=== PATIENT | male | born 1955 | race Caucasian/White ===

== ENCOUNTER 2020-09-09 07:34 | Observation (INO) | payer BC, SELFPAY ==
[2020-09-09] VITALS (12 sets, daily range): BP systolic 100–144; BP diastolic 59–70; PULSE 51–96; RESP 12–18; TEMP 36.2–37.2; O2SAT 95–99; BMI 25.7
--- NOTE | ~2020-09-09 | CT_ITS ---
EXAMINATION: CT HEAD WITHOUT CONTRAST CLINICAL INFORMATION: Fall, trauma, syncope COMPARISON: None TECHNIQUE: Contiguous axial imaging was performed from the skull base to vertex without intravenous administration of contrast. Additional 2-D coronal and sagittal reformatted images are generated on the CT workstation and uploaded to PACS. This CT examination was performed using dose optimization techniques as appropriate, variously including the following: *Automated exposure control *Adjustment of mA and/or kV according to patient size (this includes techniques or standardized protocols for targeted exams where dose is matched to indication/reason for exam; i.e. extremities or head) *Use of iterative reconstruction technique DLP: 135 mGy-cm FINDINGS: There is no intracranial hemorrhage, hematoma, or extra-axial fluid collection. The ventricles are normal in size. There is no hydrocephalus, edema, or mass effect. The freeman-white matter differentiation appears symmetric. There is no visible acute territorial infarct or mass lesion. The calvarium appears intact. There is no pneumocephalus or orbital emphysema. The visualized sinuses and middle ears and mastoid air cells show no significant mucosal thickening. There are no air-fluid levels. CT/CT head/brain wo con IMPRESSION: No acute intracranial abnormality.
--- NOTE | ~2020-09-09 | XR_ITS ---
EXAMINATION: XR CHEST CLINICAL INFORMATION: Syncope, fall COMPARISON: None TECHNIQUE: Portable upright AP view of the chest was obtained. FINDINGS: There is no pneumothorax, airspace consolidation, pleural reaction, or effusion. The heart is within normal size and the hilar and mediastinal contours are normal. There is small round density overlying right anterior sixth intercostal space, possibly nipple shadow or overlapping vascular markings. There are degenerative changes thoracic spine. No visible acute bony abnormality. No free air beneath the diaphragms. XR/XR chest 1V IMPRESSION: 1. No acute intrathoracic disease. 2. Small density right lateral base, possibly nipple shadow or overlapping vascular markings. Suggest repeat view with nipple markers when clinically able.
--- NOTE | ~2020-09-09 | CT_ITS ---
EXAMINATION: CT CERVICAL SPINE WITHOUT CONTRAST CLINICAL INFORMATION: Fall, trauma, syncope COMPARISON: Radiographs cervical spine 04/25/2013 TECHNIQUE: Multidetector volumetric CT imaging of the cervical spine is performed without contrast in the axial plane. Additional 2D reformatted coronal and sagittal images are generated on the CT workstation and uploaded to PACS. This CT examination was performed using dose optimization techniques as appropriate, variously including the following: *Automated exposure control *Adjustment of mA and/or kV according to patient size (this includes techniques or standardized protocols for targeted exams where dose is matched to indication/reason for exam; i.e. extremities or head) *Use of iterative reconstruction technique DLP: 435 mGy-cm FINDINGS: There is no vertebral compression fracture, fracture line, spondylolisthesis, or prevertebral soft tissue swelling. The craniocervical junction appears normal. The odontoid appears intact. There is normal cervical lordosis. There are mild degenerative disc changes again noted C5-C6 similar to prior radiographs 2012. There is no apical pneumothorax. CT/CT cervical spine wo con IMPRESSION: 1. No acute bony abnormality or prevertebral soft tissue swelling. 2. Chronic degenerative disc changes C5-C6.
--- NOTE | 2020-09-09 07:45 | ED_ITS ---
HPI - Syncope General Chief Complaint: Syncope Stated Complaint: PASSED OUT NOSE INJ Time Seen by Provider: 09/09/20 07:45 Source: patient Mode of arrival: ambulatory Limitations: no limitations History of Present Illness HPI narrative: Patient history of coronary artery disease status post stent placement in 2010 high cholesterol hypertension was at baseline normal active woke up around 06:00 o'clock felt lightheaded sat on the side of the bed stood up and tried to go to bathroom syncopized fell and hit the nose and head to the ground. Patient denied any chest pain no palpitation no history of seizures patient never had similar episode in the past patient does have slow heart rate in the past but it was told secondary to beta-jim he was taking seen eeo officer telemetry 1 month ago and cardiac rhythm was sinus. On arrival patient cardiogram showed atrial fibrillation with heart rate in 73 also patient took Flomax last night after a month could be causing orthostatic hypertension MD complaint: loss of consciousness Related Data Home Medications Medication Instructions Recorded Confirmed aspirin 81 mg PO BEDTIME 09/09/20 09/09/20 atorvastatin 1 tab PO BEDTIME 09/09/20 09/09/20 cyanocobalamin (vitamin B-12) 1,000 mcg PO BEDTIME 09/09/20 09/09/20 lisinopril 1 tab PO BEDTIME 09/09/20 09/09/20 Allergies Allergy/AdvReac Type Severity Reaction Status Date / Time No Known Allergies Allergy Verified 09/09/20 07:54 Review of Systems Review of Systems: Constitutional : No Weight loss, No Fever, No Chills ENT/Mouth : No sore throat, No Rhinorrhea Eyes: No Eye Pain, No Swelling Cardiovascular : No Chest Pain, no palpitations Respiratory : No Cough, No Sputum, no shortness of breath Gastrointestinal : no Nausea, No Vomiting, No Diarrhea, No abdominal Pain, no black stools Genitourinary : No Dysuria, No Urinary Frequency Musculoskeletal : No joint pain, No Myalgias, No Joint Swelling Skin : No Skin Lesions, No rash Neuro : No Weakness, No Numbness, + Dizziness, No Headache Psych : No Anxiety/Panic, No Depression Heme/Lymph: No Bruising, No Lymphadenopathy Endocrine : No Polyuria, No Polydipsia All other systems reviewed and are negative [facility] Past Medical History Medical History Coronary artery disease High cholesterol Hypertension Surgical History (Updated 09/09/20 @ 10:52 by SAMANTHA Barney) Hx of cholecystectomy Status post insertion of drug-eluting stent into left anterior descending (LAD) artery for coronary artery disease Family History Family History Mother Afib Social History Social History Alcohol intake: current Alcohol intake frequency: a few times a month Alcohol type: beer Smoking Status: Former smoker Smoked in Last 30 Days: No Use of substances other than those prescribed or required for medical reasons: No Advance Directives: No Advance Directives Information Provided: No Physical Exam Vital Signs: Vital Signs: Last Vital Signs Temp 98.9 F 09/09/20 09:14 Pulse 94 09/09/20 10:11 Resp 14 09/09/20 09:14 BP 100/61 09/09/20 10:11 Pulse Ox 97 09/09/20 09:14 Body Mass Index 25.7 Const: General: comfortable and no acute distress Orientation/consciousness: patient oriented x3 HENMT: Head: Yes normocephalic and Yes abrasion Head images: 1. Official abrasion on the nose 2. Abrasion left forehead Ears: external ears normal and TM's normal bilaterally Face images: 1. abrasion Mouth: Normal oral and palatal mucosa present Eyes: General: appearance normal, both eyes and all related structures Neck: Neck: Yes full ROM, No midline deformity and Yes tender (Right-side of the neck) Chest: Chest palpation & inspection: normal inspection of the chest and normal palpation of entire chest wall Resp: Effort & Inspection: normal respiratory effort Auscultation: clear to auscultation bilaterally Cardio: Rate: regular rate Rhythm: abnormal rhythm irregularly irregular Heart sounds: S1 normal heart sound present, S2 normal heart sound present and n o murmurs Peripheral pulses: Peripheral pulses 2+ throughout GI: Inspection: Yes normal to inspection Palpation (GI): Soft to palpation Auscultation: normal bowel sounds : General: Yes no CVA tenderness Back/Spine/Pelvis: Back: no CVA tenderness Cervical Spine: normal cervical lordosis Thoracic/Lumbar Spine: thoracic and lumbar spine normal to inspect ion Neuro: General: patient oriented x3, gait normal, tone normal, moves all extremities, no focal motor deficits and CN's II-XI intact bilaterally Extrem: General: Yes normal to inspection and Yes full ROM Course Course Course Narrative: Patient has slight orthostatic hypotension symptoms, with dizziness on standing. Will give him 1 L of normal saline plan to admit seen by Cardiology MDM - Syncope MDM Narrative Medical decision making narrative: Patient's syncope episode with new onset AFib took Flomax last night. Etiology could be atrioventricular block/bradycardia/orthostatic hypotension Differential Diagnosis Differential diagnosis: Likely syncope due to orthostatic hypotension and complete atrioventricular block Medical Records Attestation: I reviewed the patient's medical records. Lab Data Attestation: I reviewed the patient's lab results. Result diagrams: 09/09/20 08:39 09/09/20 08:39 Labs: Lab Results 09/09/20 09/09/20 09/09/20 Range/Units 08:39 08:39 08:39 WBC 5.6 (4.8-10.8) X10*3/uL RBC 5.15 (4.60-5.80) X10*6/uL Hgb 16.0 (14.0-18.0) g/dl Hct 47.8 (42-52) % MCV 92.8 (80-98) fL MCH 31.1 (27.0-33.0) pg MCHC 33.5 (31.0-36.0) g/dl RDW 12.0 (11.0-16.0) % Plt Count 145 L (160-400) X10*3/uL MPV 10.0 (9.4-12.4) fL Immature Gran % (Auto) 0.4 (0.0-0.4) % Neut % (Auto) 69.4 (45-73) % Lymph % (Auto) 21.4 (20-40) % [place] % (Auto) 8.0 (2-11) % Eos % (Auto) 0.4 (0-4) % Baso % (Auto) 0.4 (0-2) % Lymph # (Auto) 1.2 (1.2-4.9) X10*3/uL [place] # (Auto) 0.5 (0.1-1.2) X10*3/uL Eos # (Auto) 0.0 (0.0-0.4) X10*3/uL Baso # (Auto) 0.0 (0.0-0.2) X10*3/uL Abs Immat Gran (auto) 0.02 (0.00-0.03) X10*3/uL Absolute Neuts (auto) 3.9 (2.0-8.3) X10*3/uL Absolute Nucleated RBC 0.000 (0.0-0.012) X10*3/uL Nucleated RBC % (auto) 0.0 (0.0-0.2) /100WBC PT (10.8-13.0) SEC INR (0.9-1.1) APTT (24.1-38.0) SEC Sodium 142 (135-145) mmol/L Potassium 4.4 (3.3-5.1) mmol/L Chloride 104 (96-108) mmol/L Carbon Dioxide 29 (22-29) mmol/L Anion Gap 13 (12-20) BUN 16 (9-16) mg/dL Creatinine 0.84 (0.5-1.4) mg/dL Estim Creat Clear Calc 94.9 Estimated GFR > 60 Random Glucose 103 (60-115) mg/dL Calcium 9.0 (8.4-10.2) mg/dL Troponin I High Sens 12.7 (<3.5-35.0) ng/L TSH 0.99 (0.32-4.0) uIU/mL COVID-19 (LUÍS) (Negative) COVID-19 Clin Com 09/09/20 09/09/20 Range/Units 08:39 10:07 WBC (4.8-10.8) X10*3/uL RBC (4.60-5.80) X10*6/uL Hgb (14.0-18.0) g/dl Hct (42-52) % MCV (80-98) fL MCH (27.0-33.0) pg MCHC (31.0-36.0) g/dl RDW (11.0-16.0) % Plt Count (160-400) X10*3/uL MPV (9.4-12.4) fL Immature Gran % (Auto) (0.0-0.4) % Neut % (Auto) (45-73) % Lymph % (Auto) (20-40) % [place] % (Auto) (2-11) % Eos % (Auto) (0-4) % Baso % (Auto) (0-2) % Lymph # (Auto) (1.2-4.9) X10*3/uL [place] # (Auto) (0.1-1.2) X10*3/uL Eos # (Auto) (0.0-0.4) X10*3/uL Baso # (Auto) (0.0-0.2) X10*3/uL Abs Immat Gran (auto) (0.00-0.03) X10*3/uL Absolute Neuts (auto) (2.0-8.3) X10*3/uL Absolute Nucleated RBC (0.0-0.012) X10*3/uL Nucleated RBC % (auto) (0.0-0.2) /100WBC PT 12.2 (10.8-13.0) SEC INR 1.0 (0.9-1.1) APTT 29.4 (24.1-38.0) SEC Sodium (135-145) mmol/L Potassium (3.3-5.1) mmol/L Chloride (96-108) mmol/L Carbon Dioxide (22-29) mmol/L Anion Gap (12-20) BUN (9-16) mg/dL Creatinine (0.5-1.4) mg/dL Estim Creat Clear Calc Estimated GFR Random Glucose (60-115) mg/dL Calcium (8.4-10.2) mg/dL Troponin I High Sens (<3.5-35.0) ng/L TSH (0.32-4.0) uIU/mL COVID-19 (LUÍS) Negative (Negative) COVID-19 Clin Com See Note ECG Data Attestation: I personally reviewed and interpreted this ECG as follows: Interpretation: Atrial fibrillation heart rate [address] T wave changes left axis deviation no acute ischemia Discharge Plan Discharge Clinical Impression: New onset a-fib, Syncope Patient Disposition: Admitted As Inpatient
--- NOTE | 2020-09-09 07:54 | ECG_ITS ---
Test Reason : FALL Blood Pressure : / mmHG Vent. Rate : 073 BPM Atrial Rate : 375 BPM P-R Int : 000 ms QRS Dur : 088 ms QT Int : 394 ms P-R-T Axes : 000 -31 070 degrees QTc Int : 434 ms Atrial fibrillation Left axis deviation Inferior infarct , age undetermined Cannot rule out Anteroseptal infarct (cited on or before 14-MAY-2002) Abnormal ECG When compared with ECG of 14-MAY-2002 23:34, Atrial fibrillation has replaced Sinus rhythm Vent. rate has increased BY 24 BPM Questionable change in initial forces of Septal leads Referred By: Beni Olivier Electronically Signed By:NADINE RIVERA MD
--- NOTE | 2020-09-09 08:24 | ECG_ITS ---
Test Reason : A FIB Blood Pressure : / mmHG Vent. Rate : 057 BPM Atrial Rate : 057 BPM P-R Int : 172 ms QRS Dur : 088 ms QT Int : 414 ms P-R-T Axes : 046 -32 081 degrees QTc Int : 402 ms Sinus bradycardia Left axis deviation Inferior infarct , age undetermined Cannot rule out Anteroseptal infarct , age undetermined Abnormal ECG When compared to the previous EKG of Normal sinus rhythm has replaced Atrial fibrillation Referred By: Beni Olivier Electronically Signed By:NADINE RIVERA MD
[2020-09-09 08:51] LABS: MANUAL DIFF FLAG NO
--- NOTE | 2020-09-09 08:54 | PC.NURSE ---
pt asked if he should be wearing a cervical collar, discussed with MD. no new orders.
[2020-09-09 08:59] LABS: Basophils Percent Auto 0.4 % (0-2); Eosinophils Percent Auto 0.4 % (0-4); Hematocrit 47.8 % (42-52); Imm Gran Abs Auto 0.02 X10*3/uL (0.00-0.03); Imm Gran Pct Auto 0.4 % (0.0-0.4); Lymphocytes Absolute Auto 1.2 X10*3/uL (1.2-4.9); Lymphocytes Percent Auto 21.4 % (20-40); Mean Corpuscular HGB Conc 33.5 g/dl (31.0-36.0); Mean Corpuscular Hemoglobin 31.1 pg (27.0-33.0); Mean Corpuscular Volume 92.8 fL (80-98); Monocytes Absolute Auto 0.5 X10*3/uL (0.1-1.2); Neutrophils Absolute Auto 3.9 X10*3/uL (2.0-8.3); Neutrophils Percent Auto 69.4 % (45-73); Platelet Count 145 X10*3/uL (160-400); Red Blood Count 5.15 X10*6/uL (4.60-5.80); White Blood Count 5.6 X10*3/uL (4.8-10.8)
[2020-09-09 09:00] LABS: Prothrombin Time 12.2 SEC (10.8-13.0)
[2020-09-09 09:02] LABS: Partial Thromboplastin Time 29.4 SEC (24.1-38.0)
[2020-09-09 09:23] LABS: Anion Gap 13 (12-20); Blood Urea Nitrogen 16 mg/dL (9-16); Carbon Dioxide 29 mmol/L (22-29); Chloride 104 mmol/L (96-108); Creatinine Clr Calc Pharmacy 94.9; Estimated Glomerular Filt Rate > 60; Glucose Random 103 mg/dL (60-115); Potassium 4.4 mmol/L (3.3-5.1); Sodium 142 mmol/L (135-145)
[2020-09-09 09:28] LABS: Troponin-I High Sensitivity 12.7 ng/L (<3.5-35.0)
[2020-09-09 09:46] LABS: Thyroid Stimulating Hormone 0.99 uIU/mL (0.32-4.0)
--- NOTE | 2020-09-09 09:59 | PM.CNCAR ---
History of Present Illness History of Present Illness Date of Service: 09/09/20 Requesting physician: Beni Olivier Consult reason: other (Syncope) Chief complaint: PASSED OUT NOSE INJ Narrative: Thank you for inviting us in the consult on Romeo for a syncopal episode at home. He is a pleasant 64-year-old man who works locally, currently working from home due to the recent pandemic. Prior history of coronary artery disease with myocardial infarction in 2000 with LAD bare metal stent and in 2009 for exertional shortness of breath undergoing drug-eluting stent. Since then he has been doing well. He says he has no prior history of hypertension, but has been maintained on lisinopril therapy since his myocardial infarction. He is also on aspirin and statin therapy. In the past used to have sinus bradycardia and this was suspected to be secondary to atenolol therapy which has been withdrawn many years ago. Since then he has been doing well. He is generally very active and maintains activity of daily living without any restrictions or exertional symptoms. Recently about a month ago he was started on Flomax for BPH and he had to couple of doses and got lightheaded. He then stopped taking Flomax. He has to drink a lot of caffeine and he was advised to reduce his caffeine intake and increase his fluid intake which he was doing. He was then advised to take Flomax at nighttime, he took the 1st dose last night and said went urination about 3 or 4 times. In the morning he got up and jumped out of bed he got severely lightheaded and did not feel good. He then went back to his bed set down. He started feeling better. Then he got up again to go about his day and the next thing he remembers is that he was on the floor. When he woke up he had notice that the bureau was knocked over and he had injured his nose. His came over and then called his daughter who is a nurse and was advised after feeling his pulse to come to the emergency room. In the emergency room he was noted to be in atrial fibrillation with controlled ventricular response. He is not hypotensive. He denies any palpitations. Does not have a history of atrial fibrillation the past. 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 Courtney and at that time was noted to be in sinus rhythm. Patient denies any recent systemic symptoms. No fever, chills, nausea, vomiting, diarrhea. Review of Systems Constitutional: Constitutional: Reports no additional constitutional complaints Cardiovascular: Cardiovascular: Denies chest pain, Denies irregular heart rhythm, Reports lightheadedness, Reports Loss of Consciousness, Denies palpitations and Denies dyspnea on exertion Respiratory: Respiratory: Reports no additional respiratory complaints and Denies dyspnea on exertion Gastrointestinal: Gastrointestinal: Reports no additional gastrointestinal complaints Genitourinary: Genitourinary: Reports no additional male genitourinary complaints Musculoskeletal: Musculoskeletal: Reports no additional musculoskeletal complaints Neurologic: Reports system reviewed and no additional complaints, except as documented Psychiatric: Psychiatric: Reports no additional psychiatric complaints Endocrine: Endocrine: Reports no additional endocrine complaints and Denies palpitations Hematologic/Lymphatic: Hematologic/Lymphatic: Reports no additional hematologic/lymphatic complaints Allergic/Immunologic: Allergic/Immunologic: Reports no additional allergic/immunologic complaints [facility] Past Medical History Medical History Coronary artery disease High cholesterol Hypertension Surgical History Surgical History Status post insertion of drug-eluting stent into left anterior descending (LAD) artery for coronary artery disease Social History Social History Alcohol intake: current Alcohol intake frequency: a few times a month Alcohol type: beer Smoking Status: Former smoker Smoked in Last 30 Days: No Use of substances other than those prescribed or required for medical reasons: No Advance Directives: No Advance Directives Information Provided: No Meds Allergies Allergy/AdvReac Type Severity Reaction Status Date / Time No Known Allergies Allergy Verified 09/09/20 07:54 Physical Exam Vital Signs: Vital Signs: Last Vital Signs Temp 98.9 F 09/09/20 09:14 Pulse 77 09/09/20 09:14 Resp 14 09/09/20 09:14 BP 114/67 09/09/20 09:14 Pulse Ox 97 09/09/20 09:14 Body Mass Index 25.7 Const: General: cooperative, comfortable, no acute distress, alert and awake Nutritional Appearance: average body habitus Orientation/consciousness: patient oriented x3 Limitations: no limitations HENMT: Head: Yes normocephalic and Yes contusion (Nose) Neck: Neck: Yes trachea midline, Yes supple and Yes no JVD Chest: Chest palpation & inspection: normal inspection of the chest Resp: Effort & Inspection: normal respiratory effort Auscultation: clear to auscultation bilaterally Cardio: Jugular venous distension: no JVD Palpation: normal PMI Rhythm: abnormal rhythm irregularly irregular Heart sounds: S1 normal heart sound present and S2 normal heart sound present GI: Auscultation: normal bowel sounds Skin: General skin exam: no rashes or lesions noted Neuro: General: patient oriented x3 and no focal motor deficits Extrem: General: Yes no clubbing, cyanosis or edema Psych: Appearance: grossly normal Results Labs and Meds Result diagrams: 09/09/20 08:39 09/09/20 08:39 Lab results: Laboratory Results - last 24 hr 09/09/20 09/09/20 09/09/20 08:39 08:39 08:39 WBC 5.6 RBC 5.15 Hgb 16.0 Hct 47.8 MCV 92.8 MCH 31.1 MCHC 33.5 RDW 12.0 Plt Count 145 L MPV 10.0 Immature Gran % (Auto) 0.4 Neut % (Auto) 69.4 Lymph % (Auto) 21.4 [place] % (Auto) 8.0 Eos % (Auto) 0.4 Baso % (Auto) 0.4 Lymph # (Auto) 1.2 [place] # (Auto) 0.5 Eos # (Auto) 0.0 Baso # (Auto) 0.0 Abs Immat Gran (auto) 0.02 Absolute Neuts (auto) 3.9 Absolute Nucleated RBC 0.000 Nucleated RBC % (auto) 0.0 PT INR APTT Sodium 142 Potassium 4.4 Chloride 104 Carbon Dioxide 29 Anion Gap 13 BUN 16 Creatinine 0.84 Estim Creat Clear Calc 94.9 Estimated GFR > 60 Random Glucose 103 Calcium 9.0 Troponin I High Sens 12.7 TSH 0.99 09/09/20 08:39 WBC RBC Hgb Hct MCV MCH MCHC RDW Plt Count MPV Immature Gran % (Auto) Neut % (Auto) Lymph % (Auto) [place] % (Auto) Eos % (Auto) Baso % (Auto) Lymph # (Auto) [place] # (Auto) Eos # (Auto) Baso # (Auto) Abs Immat Gran (auto) Absolute Neuts (auto) Absolute Nucleated RBC Nucleated RBC % (auto) PT 12.2 INR 1.0 APTT 29.4 Sodium Potassium Chloride Carbon Dioxide Anion Gap BUN Creatinine Estim Creat Clear Calc Estimated GFR Random Glucose Calcium Troponin I High Sens TSH EKG shows atrial fibrillation with left axis deviation with possible inferior infarct, most likely lead placement. Imaging Radiologist's impression: Impressions Chest X-Ray 09/09/20 07:54 IMPRESSION: 1. No acute intrathoracic disease. 2. Small density right lateral base, possibly nipple shadow or overlapping vascular markings. Suggest repeat view with nipple markers when clinically able. Head CT 09/09/20 07:55 IMPRESSION: No acute intracranial abnormality. Cervical Spine CT 09/09/20 08:27 IMPRESSION: 1. No acute bony abnormality or prevertebral soft tissue swelling. 2. Chronic degenerative disc changes C5-C6. Assessment and Plan (1) Syncope: Status: Acute Syncopal episode from history appears to be orthostatic in nature, precipitated by probably low oral intake and Flomax therapy in setting of underlying lisinopril therapy without any prior history of hypertension. Will obtain orthostatic vital signs today. Will obtain an echocardiogram. Given his prior history of bradycardia and slow ventricular response to atrial fibrillation which is unusual, will monitor for 1 more day to make sure he has no significant Mac arrhythmias. If no significant abnormality is most likely discharge him tomorrow morning. Advise IV normal saline after obtaining orthostatic vital signs. Avoid Flomax therapy in the future. He is advised to increase oral fluid intake in future. Orthostatic precautions were discussed. Trend serial troponins, although acute coronary syndrome is unlikely. (2) Coronary artery disease: Problem details: Bare metal stent to LAD in 2000 for acute myocardial infarction. Followed by drug-eluting stent to LAD in 2009 for what appears to be in stent restenoses Status: Inactive (3) Unspecified atrial fibrillation: Status: Acute Atrial fibrillation with controlled ventricular response despite not being on any rate control medications. This usually denotes underlying conduction abnormalities. No need for additional rate control therapy. Will monitor overnight with cardiac telemetry. Given recent data and no prior history of atrial fibrillation most likely need to pursue rhythm control approach however this can be performed as an outpatient. Exact duration of atrial fibrillation is unclear as patient does not having a any other symptoms. CHADSVASc score of 3. Start him on oral anticoagulation with Xarelto. Hold off on aspirin therapy.
[2020-09-09 10:41] LABS: COVID-19 Test Negative (Negative); IDNOW Serial# 9DD0AD1C
--- NOTE | 2020-09-09 10:47 | PM.IMHP ---
History of Present Illness Date of Service: 09/09/20 <SAMANTHA Barney - Last Filed: 09/09/20 11:07> Chief Complaint: syncope <SAMANTHA Barney - Last Filed: 09/09/20 11:07> This is a a 65-year-old male who presents to the emergency department after syncopal event. Patient woke up this morning and began walking to the bathroom but felt ?off? and lightheaded and generally unwell therefore sat back down. He waited until the feeling passed and then began walking to the bathroom again. He woke up on the ground. He does not remember what happened but noticed that the bureau was knocked over and he had suffered trauma to his nose. He denies any chest pain, shortness of breath, palpitations. He has no previous history of syncope. He was recently started on Flomax which had caused dizziness and was therefore discontinued. However yesterday he had telemedicine appointment with his urologist who recommended that he take Flomax in the evening. He took his 1st dose yesterday prior to bedtime. On arrival to the emergency department he was noted to be in new onset atrial fibrillation with controlled ventricular response. The remainder of his workup was unremarkable. Orthostatic vital signs were negative. <SAMANTHA Barney - Last Filed: 09/09/20 11:07> Review of Systems Review of Systems: Yes all other systems are reviewed and are negative <SAMANTHA Barney - Last Filed: 09/09/20 11:07> Constitutional: Constitutional: Denies chills and Denies fever(s) <SAMANTHA Barney - Last Filed: 09/09/20 11:07> Cardiovascular: Cardiovascular: Denies chest pain <SAMANTHA Barney - Last Filed: 09/09/20 11:07> Respiratory: Respiratory: Denies cough <SAMANTHA Barney - Last Filed: 09/09/20 11:07> Gastrointestinal: Gastrointestinal: Denies abdominal pain <SAMANTHA Barney - Last Filed: 09/09/20 11:07> [facility] Medical History: Medical History Coronary artery disease High cholesterol Hypertension <SAMANTHA Barney - Last Filed: 09/09/20 11:07> Functional capacity: independent ambulation <SAMANTHA Barney - Last Filed: 09/09/20 11:07> Family History: Family History Mother Afib <SAMANTHA Barney - Last Filed: 09/09/20 11:07> Surgical History: Surgical History Hx of cholecystectomy Status post insertion of drug-eluting stent into left anterior descending (LAD) artery for coronary artery disease <SAMANTHA Barney - Last Filed: 09/09/20 11:07> Social History: Social History Alcohol intake: current Alcohol intake frequency: a few times a month Alcohol type: beer Smoking Status: Former smoker Tobacco Type: Cigarette Packs Per Day: 2 Cigarettes Per Day: 40.0 Years Smoked: 9 Smoked in Last 30 Days: No Patient Interested in Nicotine Replacement: No Patient Given Instructions on How to Stop Smoking: No Use of substances other than those prescribed or required for medical reasons: No Advance Directives: No Advance Directives Information Provided: No <SAMANTHA Barney - Last Filed: 09/09/20 11:07> Meds Allergies/Adverse reactions: Allergies Allergy/AdvReac Type Severity Reaction Status Date / Time No Known Allergies Allergy Verified 09/09/20 07:54 <SAMANTHA Barney - Last Filed: 09/09/20 11:07> Active Medications: Current Medications Generic Name Dose Route Start Last Admin Trade Name Freq PRN Reason Stop Dose Admin Sodium Chloride 1,000 mls @ 999 mls/hr 09/09/20 10:15 Ns IVCONT 09/09/20 11:15 .Q1H1M [facility] Pharm[facility] Consult 1 each 09/09/20 10:06 Consult Rx Perform Med Rec MISCELLANE ONCE PRN Consult order <SAMANTHA Barney - Last Filed: 09/09/20 11:07> Home medications: Home Medications Medication Instructions Recorded Confirmed Last Taken Type aspirin 81 mg PO BEDTIME 09/09/20 09/09/20 09/08/20 History atorvastatin 1 tab PO BEDTIME 09/09/20 09/09/20 09/08/20 History cyanocobalamin (vitamin B-12) 1,000 mcg PO BEDTIME 09/09/20 09/09/20 09/08/20 History lisinopril 1 tab PO BEDTIME 09/09/20 09/09/20 09/08/20 History <SAMANTHA Barney - Last Filed: 09/09/20 11:07> Physical Exam Vital Signs and Narrative: Vital Signs: Last Vital Signs Temp 98.9 F 09/09/20 09:14 Pulse 94 09/09/20 10:11 Resp 14 09/09/20 09:14 BP 100/61 09/09/20 10:11 Pulse Ox 97 09/09/20 09:14 Body Mass Index 25.7 <SAMANTHA Barney - Last Filed: 09/09/20 11:07> Const: Nutritional Appearance: well nourished <SAMANTHA Barney Last Filed: 09/09/20 11:07> Orientation/consciousness: patient oriented x3 <SAMANTHA Barney - Last Filed: 09/09/20 11:07> HENMT: Head: Yes normocephalic and Yes atraumatic <SAMANTHA Barney - Last Filed: 09/09/20 11:07> Eyes: Sclerae: sclerae normal <SAMANTHA Barney Last Filed: 09/09/20 11:07> Chest: Chest palpation & inspection: normal inspection of the chest <SAMANTHA Barney Last Filed: 09/09/20 11:07> Resp: Effort & Inspection: normal respiratory effort and no respiratory distress <SAMANTHA Barney Last Filed: 09/09/20 11:07> Auscultation: clear to auscultation bilaterally <SAMANTHA Barney Last Filed: 09/09/20 11:07> Cardio: Rate: regular rate <SAMANTHA Barney Last Filed: 09/09/20 11:07> Rhythm: abnormal rhythm irregularly irregular <SAMANTHA Barney Last Filed: 09/09/20 11:07> GI: Palpation (GI): Soft to palpation and nontender <SAMANTHA Barney - Last Filed: 09/09/20 11:07> Skin: General skin exam: no rashes or lesions noted <SAMANTHA Barney - Last Filed: 09/09/20 11:07> Neuro: General: patient oriented x3 <SAMANTHA Barney - Last Filed: 09/09/20 11:07> Cranial nerves: Yes CN's II-XII intact bilaterally and Yes Bilaterally intact EOM present <SAMANTHA Barney - Last Filed: 09/09/20 11:07> Extrem: General: Yes normal to inspection <SAMANTHA Barney - Last Filed: 09/09/20 11:07> Results Labs CBC and Chem 7: : 09/10/20 07:38 09/10/20 07:38 <SAMANTHA Barney - Last Filed: 09/09/20 11:07> Labs: Laboratory Results - last 24 hr 09/09/20 09/09/20 09/09/20 08:39 08:39 08:39 MCV 92.8 MCH 31.1 MCHC 33.5 RDW 12.0 Plt Count 145 L MPV 10.0 Immature Gran % (Auto) 0.4 Neut % (Auto) 69.4 Lymph % (Auto) 21.4 [place]w % (Auto) 8.0 Eos % (Auto) 0.4 Baso % (Auto) 0.4 Lymph # (Auto) 1.2 [place] # (Auto) 0.5 Eos # (Auto) 0.0 Baso # (Auto) 0.0 Abs Immat Gran (auto) 0.02 Absolute Neuts (auto) 3.9 Absolute Nucleated RBC 0.000 Nucleated RBC % (auto) 0.0 PT INR APTT Anion Gap 13 Estim Creat Clear Calc 94.9 Estimated GFR > 60 Random Glucose 103 Calcium 9.0 Troponin I High Sens 12.7 TSH 0.99 COVID-19 ([facility]) COVID-19 Clin Com 09/09/20 09/09/20 08:39 10:07 MCV MCH MCHC RDW Plt Count MPV Immature Gran % (Auto) Neut % (Auto) Lymph % (Auto) [place]w % (Auto) Eos % (Auto) Baso % (Auto) Lymph # (Auto) [place] # (Auto) Eos # (Auto) Baso # (Auto) Abs Immat Gran (auto) Absolute Neuts (auto) Absolute Nucleated RBC Nucleated RBC % (auto) PT 12.2 INR 1.0 APTT 29.4 Anion Gap Estim Creat Clear Calc Estimated GFR Random Glucose Calcium Troponin I High Sens TSH COVID-19 ([facility]) Negative COVID-19 Clin Com See Note <SAMANTHA Barney - Last Filed: 09/09/20 11:07> Imaging Radiologist's Impressions: Impressions Chest X-Ray 09/09/20 07:54 IMPRESSION: 1. No acute intrathoracic disease. 2. Small density right lateral base, possibly nipple shadow or overlapping vascular markings. Suggest repeat view with nipple markers when clinically able. Head CT 09/09/20 07:55 IMPRESSION: No acute intracranial abnormality. Cervical Spine CT 09/09/20 08:27 IMPRESSION: 1. No acute bony abnormality or prevertebral soft tissue swelling. 2. Chronic degenerative disc changes C5-C6. <SAMANTHA Barney - Last Filed: 09/09/20 11:07> Assessment and Plan (1) Syncope: Status: Acute <SAMANTHA Barney - Last Filed: 09/09/20 11:07> (2) Unspecified atrial fibrillation: Status: Acute <SAMANTHA Barney - Last Filed: 09/09/20 11:07> This is a 65-year-old male with history of coronary artery disease, hypertension who presents to the emergency department after syncopal event found to have new onset atrial fibrillation Syncope Possibly related to orthostasis given recent use of Flomax however orthostatic blood pressures negative in the ED Tele monitoring to rule out bradyarrhythmia Echocardiogram Trend cardiac enzymes Cardiology following New onset atrial fibrillation Rate controlled ChadsVasc score 3, will start AC with xarelto cardiology following CAD No chest pain Hold aspirin, starting AC with Xarelto for afib Previous intolerance to beta-jim HTN Blood pressure on the lower side Will hold lisinopril for now. Can resume if blood pressure tolerates DVT prophylaxis-Xarelto This case was discussed with Dr. Das <SAMANTHA Barney - Last Filed: 09/09/20 11:07>
[2020-09-09] MEDS: 0.9 % Sodium Chloride 1,000 ML 999 ML IVCONT (10:51)
[2020-09-09] MEDS: Rivaroxaban 20 MG TABLET PO (11:15)
[2020-09-09 13:20] LABS: Troponin-I High Sensitivity 24.6 ng/L (<3.5-35.0)
[2020-09-09] MEDS: 0.9 % Sodium Chloride Flush 3 ML SYRINGE IVFLUSH ×2 (15:13→21:02)
[2020-09-09] MEDS: Acetaminophen 325 MG TABLET 650 MG PO (16:59)
[2020-09-09] MEDS: Atorvastatin Calcium 40 MG TABLET PO (20:59)
[2020-09-09] MEDS: Cyanocobalamin (Vitamin B-12) 1,000 MCG TABLET 1000 MCG PO (20:59)
[2020-09-09] MEDS: traMADoL HCL 50 MG TABLET PO (21:08)
[2020-09-09] MEDS: Sodium Chloride 0.65 % Nasal 44 ML SPRBTL 1 SPRAY NOSTRIL-B (22:11)
--- NOTE | 2020-09-09 22:18 | PC.NURSE ---
21:50 Pt complained of 3/10 chest tightness from mid chest radiating up to neck. BP 125/67 P 53 02 99 on RA stat EKG done no change from previous EKG except now sinus mile. Pain resolved 20 minutes later. Doc Shameka notified.
[2020-09-10 03:05] VITALS: BP 119/66; PULSE 54; RESP 16; TEMP 36.3; O2SAT 97
[2020-09-10] MEDS: Rivaroxaban 20 MG TABLET PO (07:31)
[2020-09-10] MEDS: 0.9 % Sodium Chloride Flush 3 ML SYRINGE IVFLUSH (07:31)
[2020-09-10 07:33] VITALS: BP 125/70; PULSE 55; RESP 16; TEMP 36.4; O2SAT 96
[2020-09-10] MEDS: Acetaminophen 325 MG TABLET 650 MG PO (07:33)
[2020-09-10 08:07] LABS: MANUAL DIFF FLAG NO
[2020-09-10 08:10] LABS: Basophils Percent Auto 0.4 % (0-2); Eosinophils Absolute Auto 0.1 X10*3/uL (0.0-0.4); Eosinophils Percent Auto 0.9 % (0-4); Hematocrit 43.8 % (42-52); Hemoglobin 14.8 g/dl (14.0-18.0); Imm Gran Abs Auto 0.01 X10*3/uL (0.00-0.03); Imm Gran Pct Auto 0.2 % (0.0-0.4); Lymphocytes Absolute Auto 1.5 X10*3/uL (1.2-4.9); Mean Corpuscular HGB Conc 33.8 g/dl (31.0-36.0); Mean Corpuscular Hemoglobin 31.1 pg (27.0-33.0); Mean Platelet Volume 10.2 fL (9.4-12.4); Monocytes Absolute Auto 0.5 X10*3/uL (0.1-1.2); Monocytes Percent Auto 8.9 % (2-11); Neutrophils Absolute Auto 3.4 X10*3/uL (2.0-8.3); Neutrophils Percent Auto 62.6 % (45-73); Platelet Count 156 X10*3/uL (160-400); Red Blood Count 4.76 X10*6/uL (4.60-5.80); Red Cell Distribution Width 11.9 % (11.0-16.0); White Blood Count 5.4 X10*3/uL (4.8-10.8)
[2020-09-10 08:24] VITALS: BP 133/77; PULSE 58
[2020-09-10 08:34] LABS: Anion Gap 9 (12-20); Blood Urea Nitrogen 13 mg/dL (9-16); Calcium 8.4 mg/dL (8.4-10.2); Carbon Dioxide 30 mmol/L (22-29); Chloride 106 mmol/L (96-108); Creatinine Clr Calc Pharmacy 87.6; Estimated Glomerular Filt Rate > 60; Glucose Random 99 mg/dL (60-115); Potassium 4.3 mmol/L (3.3-5.1); Sodium 141 mmol/L (135-145)
[2020-09-10 09:33] VITALS: BP 125/65; PULSE 51
--- NOTE | 2020-09-10 09:39 | P.DS_ITS ---
DS: Providers Provider Date of Service: 11/27/20 Date of admission: 09/09/20 10:24 Primary care physician: SAMANTHA Nation Consults: 09/09/20 08:56 Consult to Cardiology Stat Consulting Provider: Giovanni Singleton Reason for consultation: at [facility] with syncope Has provider been notified: Yes DS: Diagnosis Discharge Diagnosis (1) Syncope: Status: Acute (2) Unspecified atrial fibrillation: Status: Acute DS: Medications Discharge Medications Home Medications: Home Medications Medication Instructions Recorded Confirmed aspirin 81 mg PO BEDTIME 09/09/20 09/09/20 atorvastatin 1 tab PO BEDTIME 09/09/20 09/09/20 cyanocobalamin (vitamin B-12) 1,000 mcg PO BEDTIME 09/09/20 09/09/20 lisinopril 1 tab PO BEDTIME 09/09/20 09/09/20 DS: Summary Hospital Course Hospital Course: HpI This is a a 65-year-old male who presents to the emergency department after syncopal event. Patient woke up this morning and began walking to the bathroom but felt ?off? and lightheaded and generally unwell therefore sat back down. He waited until the feeling passed and then began walking to the bathroom again. He woke up on the ground. He does not remember what happened but noticed that the bureau was knocked over and he had suffered trauma to his nose. He denies any chest pain, shortness of breath, palpitations. He has no previous history of syncope. He was recently started on Flomax which had caused dizziness and was therefore discontinued. However yesterday he had telemedicine appointment with his urologist who recommended that he take Flomax in the evening. He took his 1st dose yesterday prior to bedtime. On arrival to the emergency department he was noted to be in new onset atrial fibrillation with controlled ventricular response. The remainder of his workup was unremarkable. Orthostatic vital signs were negative. Hospital course: 1. Syncope likley from orthostatic hypotension--hydrated and is resolved. 2. New onset AFIB with controlled rate, started on Xaretlo 20 mg daily, echo is been performed. To followup with his wash oil pump operator Antwan Rebolledo Time Spent with Patient Time attestation: Total time spent providing and/or coordinating discharge services: Discharge coordination time: Greater than 30 minutes Physical Exam Vital Signs: Vital Signs: Last Vital Signs Temp 97.6 F 09/10/20 07:33 Pulse 55 09/10/20 07:33 Resp 16 09/10/20 07:33 BP 125/70 09/10/20 07:33 Pulse Ox 96 09/10/20 07:33 Body Mass Index 25.7 General: AO X 3, no acute distress Resp: CTA bilateral CVS: S1,S2,iRiRR GI: +BS, NT, no distention Skin: No rash Neuro: motor grossly intact Psych: appropriate affect DS: Data Data Completed and Pending Labs on day of discharge: Laboratory Results - last 24 hr 09/09/20 09/09/20 09/09/20 08:39 10:07 12:31 WBC RBC Hgb Hct MCV MCH MCHC RDW Plt Count MPV Immature Gran % (Auto) Neut % (Auto) Lymph % (Auto) [place] % (Auto) Eos % (Auto) Baso % (Auto) Lymph # (Auto) [place] # (Auto) Eos # (Auto) Baso # (Auto) Abs Immat Gran (auto) Absolute Neuts (auto) Absolute Nucleated RBC Nucleated RBC % (auto) Sodium Potassium Chloride Carbon Dioxide Anion Gap BUN Creatinine Estim Creat Clear Calc Estimated GFR Random Glucose Calcium Troponin I High Sens 24.6 D TSH 0.99 COVID-19 ([facility]) Negative COVID-19 Clin Com See Note 09/10/20 09/10/20 07:38 07:38 WBC 5.4 RBC 4.76 Hgb 14.8 Hct 43.8 MCV 92.0 MCH 31.1 MCHC 33.8 RDW 11.9 Plt Count 156 L MPV 10.2 Immature Gran % (Auto) 0.2 Neut % (Auto) 62.6 Lymph % (Auto) 27.0 [place] % (Auto) 8.9 Eos % (Auto) 0.9 Baso % (Auto) 0.4 Lymph # (Auto) 1.5 [place] # (Auto) 0.5 Eos # (Auto) 0.1 Baso # (Auto) 0.0 Abs Immat Gran (auto) 0.01 Absolute Neuts (auto) 3.4 Absolute Nucleated RBC 0.000 Nucleated RBC % (auto) 0.0 Sodium 141 Potassium 4.3 Chloride 106 Carbon Dioxide 30 H Anion Gap 9 L BUN 13 Creatinine 0.91 Estim Creat Clear Calc 87.6 Estimated GFR > 60 Random Glucose 99 Calcium 8.4 D Troponin I High Sens TSH COVID-19 ([facility]) COVID-19 Clin Com Discharge Plan Discharge Anticipated Discharge Date/Time: 09/10/20 09:35 Patient Disposition: Home, Self-Care Referrals: Dorys Romo PA [Primary Care Provider] - Discharge Medications: New Xarelto 20 mg Tablet 20 mg PO DAILY Qty: 30 RF: 1 Continued atorvastatin 40 mg tablet 1 tab PO BEDTIME RF: 0 lisinopril 5 mg tablet 1 tab PO BEDTIME RF: 0 cyanocobalamin (vitamin B-12) 1,000 mcg Tablet 1,000 mcg PO BEDTIME RF: 0 aspirin 81 mg Tablet,Delayed Release (Dr/Ec) 81 mg PO BEDTIME RF: 0 Discharge Orders: Discharge Order (Routine); Ordered 09/10/20 Ordered By: Yang Das Diet: advance to usual diet Activity on Discharge: As tolerated Stand Alone Forms: Patient Portal Discharge page Care Plan Goals: To prevent stroke from afib Health Concerns: afib, syncope Plan of Treatment: Take Xarelto as recommended and follow up with your Docotor and heart DrCatia in 1 to 2 weeks, call for appointment Assessment: afib Discharge Date/Time: 09/10/20 14:17
[2020-09-10 10:00] VITALS: BP 133/71; PULSE 56
--- NOTE | 2020-09-10 10:27 | PM.PNCARD ---
Subjective Subjective Date of Service: 09/10/20 Principal diagnosis: Syncope, paroxysmal atrial fibrillation. Interval history: Patient has no new symptoms. Converted to sinus rhythm yesterday afternoon. No orthostatic lightheadedness. Orthostatic vitals are within normal limits. Echocardiogram is pending. Review of Systems Constitutional: Reports no additional constitutional complaints Cardiovascular: Reports no additional cardiovascular complaints Respiratory: Reports no additional respiratory complaints Gastrointestinal: Reports no additional gastrointestinal complaints Musculoskeletal: Reports no additional musculoskeletal complaints Reports system reviewed and no additional complaints, except as documented Psychiatric: Reports no additional psychiatric complaints Physical Exam Vital Signs: Last Vital Signs Temp 97.6 F 09/10/20 07:33 Pulse 56 09/10/20 10:00 Resp 16 09/10/20 07:33 BP 133/71 09/10/20 10:00 Pulse Ox 96 09/10/20 07:33 Body Mass Index 25.7 Const General: cooperative, comfortable, alert and awake Orientation/consciousness: patient oriented x3 Limitations: no limitations Neck Neck: Yes trachea midline, Yes supple and Yes no JVD Resp Effort & Inspection: normal respiratory effort Cardio Jugular venous distension: no JVD Palpation: normal PMI Rate: regular rate Rhythm: regular rhythm Heart sounds: S1 normal heart sound present and S2 normal heart sound present Neuro General: patient oriented x3 and no focal motor deficits Extrem General: Yes no clubbing, cyanosis or edema Results Labs and Meds Result diagrams: 09/10/20 07:38 09/10/20 07:38 Lab results: Laboratory Results - last 24 hr 09/09/20 09/09/20 09/10/20 10:07 12:31 07:38 WBC 5.4 RBC 4.76 Hgb 14.8 Hct 43.8 MCV 92.0 MCH 31.1 MCHC 33.8 RDW 11.9 Plt Count 156 L MPV 10.2 Immature Gran % (Auto) 0.2 Neut % (Auto) 62.6 Lymph % (Auto) 27.0 [place] % (Auto) 8.9 Eos % (Auto) 0.9 Baso % (Auto) 0.4 Lymph # (Auto) 1.5 [place] # (Auto) 0.5 Eos # (Auto) 0.1 Baso # (Auto) 0.0 Abs Immat Gran (auto) 0.01 Absolute Neuts (auto) 3.4 Absolute Nucleated RBC 0.000 Nucleated RBC % (auto) 0.0 Sodium Potassium Chloride Carbon Dioxide Anion Gap BUN Creatinine Estim Creat Clear Calc Estimated GFR Random Glucose Calcium Troponin I High Sens 24.6 D COVID-19 ([facility]) Negative COVID-19 Clin Com See Note 09/10/20 07:38 WBC RBC Hgb Hct MCV MCH MCHC RDW Plt Count MPV Immature Gran % (Auto) Neut % (Auto) Lymph % (Auto) [place] % (Auto) Eos % (Auto) Baso % (Auto) Lymph # (Auto) [place] # (Auto) Eos # (Auto) Baso # (Auto) Abs Immat Gran (auto) Absolute Neuts (auto) Absolute Nucleated RBC Nucleated RBC % (auto) Sodium 141 Potassium 4.3 Chloride 106 Carbon Dioxide 30 H Anion Gap 9 L BUN 13 Creatinine 0.91 Estim Creat Clear Calc 87.6 Estimated GFR > 60 Random Glucose 99 Calcium 8.4 D Troponin I High Sens COVID-19 ([facility]) COVID-19 Clin Com Progress Note: A&P Assessment and plan (1) Paroxysmal atrial fibrillation: Status: Acute Assessment and Plan: Paroxysmal atrial fibrillation, trigger most likely being acute adrenergic surge from his syncopal event. However given that he has multiple risk factor should continue oral anticoagulation therapy with Xarelto. There is no need for aspirin therapy. Outpatient follow-up with his own respiratory care faculty and may require event monitor. Echocardiogram is pending. (2) Syncope: Status: Acute Assessment and Plan: Syncope with no recurrent events symptoms have improved. Appears to be confluence of factors including starting of Flomax therapy and possibly reduced oral intake causing orthostatic hypertension. Avoid Flomax like therapy in the future. Increase fluid intake was discussed. Orthostatic precautions were discussed in details. He understands and agrees. Echocardiogram is pending. (3) Coronary artery disease: Problem details: Bare metal stent to LAD in 2000 for acute myocardial infarction. Followed by drug-eluting stent to LAD in 2009 for what appears to be in stent restenoses Status: Acute Assessment and Plan: Coronary artery disease is stable with no recent symptoms suggestive of myocardial ischemia. Continue risk factor modification. Continue lisinopril therapy and high-intensity statin therapy. Aspirin be held as he is being started on oral anticoagulant therapy. Will sign of the case, patient can be discharged home and follow-up with Dr. Courtney as outpatient. Fall Risk Details Current Medications: Current Medications Generic Name Dose Route Start Last Admin Trade Name Nader PRN Reason Stop Dose Admin Acetaminophen 650 mg 09/09/20 18:16 09/10/20 07:33 Acetaminophen 325 Mg Tablet PO 650 mg Q6H PRN Administration Pain, Mild (Pain Scale 1-3) Atorvastatin Calcium 40 mg 09/09/20 21:00 09/09/20 20:59 Atorvastatin Calcium 40 Mg Tablet PO 40 mg BEDTIME JUICE Administration Cyanocobalamin 1,000 mcg 09/09/20 21:00 09/09/20 20:59 Cyanocobalamin (Vitamin B-12) 1,000 Mcg Tablet PO 1,000 mcg BEDTIME JUICE Administration Docusate Sodium 100 mg 09/09/20 12:42 Docusate Sodium 100 Mg Capsule PO DAILY PRN Constipation Ondansetron HCl 4 mg 09/09/20 12:42 Ondansetron Hcl 4 Mg/2 Ml Vial IVPUSH Q8H PRN Nausea and Vomiting Pharmacy Consult 1 each 09/09/20 10:06 Consult Rx Perform Med Rec MISCELLANE ONCE PRN Consult order Rivaroxaban 20 mg 09/10/20 09:00 09/10/20 07:31 Rivaroxaban 20 Mg Tablet PO 20 mg DAILY JUICE Administration Sodium Chloride 3 ml 09/09/20 16:00 09/10/20 07:31 0.9 % Sodium Chloride Flush 3 Ml Syringe IVFLUSH 3 ml QSHIFT JUICE Administration Sodium Chloride 1 spray 09/09/20 21:17 09/09/20 22:11 Sodium Chloride 0.65 % Nasal 44 Ml Sprbtl NOSTRIL-B 1 spray Q1H PRN Administration Nasal Congestion Tramadol HCl 50 mg 09/09/20 18:21 09/09/20 21:08 Tramadol Hcl 50 Mg Tablet PO 50 mg Q6H PRN Administration Pain, Severe (Pain Scale 7-10) Time Spent With Patient Time: Total time spent is greater than 50% in coordination of care (as documented) at patient's floor/unit and/or counseling patient: Time with patient: 25 - 35 minutes
--- NOTE | 2020-09-10 10:57 | MHC.CM.PN ---
pt lives c his in their home. he reports that he is independent c everything. still driving a car. active in the community. pt will have his transport at dc. pt denies the need for vna at dc. dc plan is home no svcs. cm to cont. to follow.
--- NOTE | 2020-09-10 10:59 | CA_ITS ---
Transthoracic Echocardiogram Patient (Last, First, Middle): Romeo Aranda, Gender: Male Date of : 1955 Age: 65 Procedure Date: 09/10/2020 Procedure Type: Transthoracic Echocardiogram Location: S3W Height: 182.88 cm Weight: 85.73 kg BSA: 2.08 m2 Heart Rate: bpm BP: 119 / 66 mmHg Sash Clamp Operator: DAVID Valle MD: Nancy SINGH Anode Machine Operator: Giovanni Singleton MD Symptoms: new onset afib, syncope Study Quality: Fair ECG Rhythm: Sinus Conclusions: - 1. Normal LV systolic function with grade 1 diastolic dysfunction 2. Mild aortic regurgitation 3. Normal RV systolic pressure 4. No pericardial effusion Findings Left Ventricle Normal left ventricular size, thickness, and systolic function. The visually estimated ejection fraction is between 55-60%. Spectral Doppler is indicative of an impaired relaxation filling pattern. E/E prime ratio is <8, consistent with normal filling pressures. Evidence suggests grade I (mild) diastolic dysfunction. Right Ventricle Normal right ventricular cavity size and systolic function. Atria The left atrium is likely dilated. There is no evidence of interatrial shunt. The right atrium is normal in size. Aortic Valve There is mild calcification of the aortic valve. There is no aortic valve stenosis. There is mild aortic valve regurgitation. Mitral Valve There is mild anterior and posterior mitral leaflet thickening. There is trace mitral valve regurgitation. There is no mitral valve stenosis. Pulmonic Valve The pulmonic valve was not well visualized. Tricuspid Valve Likely normal tricuspid valve structure and function. There is trace tricuspid valve regurgitation. The right ventricular systolic pressure is normal. The right ventricular systolic pressure is 16 mmHg. Normal right atrial pressure. There is no evidence of pulmonary hypertension. Great Vessels All visible segments of the aorta are normal in size. The pulmonary artery was not well visualized. Small plaque is seen in the descending thoracic aorta. Venous The inferior vena cava is normal in size and collapses greater than 50% with inspiration. Pericardium/Pleural There is no evidence of pericardial effusion. Prior Study Comparison No prior study available for comparison. Measurements 2D Linear Measurements IVSd: 1.13 0.6-0.9/0.6-1.0 cm LVIDd: 5.09 3.9-5.3/4.2-5.9 cm LVIDd Index: 2.45 2.4-3.2/2.2-3.1 cm/m2 LVIDs: 3.42 2.0-3.6 cm LVPWd: 1.08 0.7-1.1 cm Ao Root: 3.80 2.1-3.5 cm LA Diam: 4.00 2.7-3.8/3.0-4.0 cm LAIDs Index: 1.92 1.5-2.3 cm/m2 LV Mass: 267.43 67-162/88-224 g LV Mass Index: 128.57 43-95/49-115 g/m2 LVOT Diam: 2.40 3.0+(-)1.3 cm 2D Systolic Function EF 4C: 52.80 >55% EF 2C: 55.30 >55% EF BiP: 52.30 >55% Mitral Valve MV Pk E: 0.62 MV PK A: 0.55 MV Decel Time: 225.00 E/A: 1.10 E'Lateral: 5.87 E'Medial: 4.90 E/E' Med: 12.60 E/E' Lat: 10.50 PHT: 66.00 MVA PHT: 3.33 Decel [place]: 2.74 Aortic Valve AoV Pk Maximino: 1.33 AoV Mn Maximino: 0.93 AoV VTI: 0.31 AoV Pk Grad: 7.00 Aov Mn Grad: 4.00 SEBASTIAN Cont.VTI: 3.19 LVOT LVOT Pk Maximino: 0.94 LVOT Mn Maximino: 0.64 LVOT VTI: 0.22 LVOT Pk Grad: 4.00 LVOT Mn Grad: 2.00 LVOT Diam: 2.40 LVOT Area: 4.52 Diastolic Function MV Pk E: 0.62 MV Pk A: 0.55 E/A: 1.10 E'Medial: 4.90 E/E' Med: 12.60 E' Laterial: 5.87 E/E' Lat: 10.50 Tricuspid Valve TR Pk Maximino: 1.83 TR Pk Grad: 13.00 RA Press: 3.00 RVSP: 16.00 Great Vessels Aorta Ao Root-2D: 3.80 2.0-3.7 cm Ao Asc: 3.70 2.1-3.4 cm Ao Arch: 3.00 Updated in Other Vendor System with Status of Final Giovanni Singleton MD electronically signed on 09/10/2020 12:40:07 PM with status of Final
[2020-09-10 11:30] VITALS: BP 139/71; PULSE 52; RESP 18; TEMP 36.6; O2SAT 97
== END 2020-09-10 14:17 | disposition home or self-care (01) ==
LOC: HO.ED 10:05 → HO.EDOVER 10:44 → HO.S3 12:38
PROVIDERS: Physician Assistant Medical; Admitting Provider Internal Medicine; Emergency Provider Internal Medicine; PCP Physician Assistant Medical; Visit Provider Internal Medicine
DX: R55 Syncope and collapse (principal); I48.0 Paroxysmal atrial fibrillation; S00.31XA Abrasion of nose, initial encounter; S00.81XA Abrasion of other part of head, initial encounter; I25.10 Atherosclerotic heart disease of native coronary artery without angina pectoris; E78.00 Pure hypercholesterolemia, unspecified; I10 Essential (primary) hypertension; M50.322 Other cervical disc degeneration at C5-C6 level; R94.31 Abnormal electrocardiogram [ECG] [EKG]; Z20.822 Contact with and (suspected) exposure to COVID-19; Z79.82 Long term (current) use of aspirin; Z79.899 Other long term (current) drug therapy; Z95.5 Presence of coronary angioplasty implant and graft; Z87.891 Personal history of nicotine dependence; W18.30XA Fall on same level, unspecified, initial encounter; Y93.9 Activity, unspecified; Y92.9 Unspecified place or not applicable; Y99.9 Unspecified external cause status
CPT/HCPCS: 36415; 70450; 71045; 72125; 80048; 84443; 84484; 85025; 85610; 85730; 87635; 93005; 93306; 96361; 96374; 99218; 99285

== ENCOUNTER 2024-08-11 09:55 | Outpatient (AMB) | payer MEDICARE, SELFPAY ==
[2024-08-11 10:00] VITALS: BP 120/76; PULSE 58; BMI 25.7
--- NOTE | 2024-08-11 10:00 | MHC.OFFVIS ---
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/ afib/post ablation/cp/lightheaded Intake Note: [place]x cabg and [place] [facility] [facility] [place] chest pain at rest since Dec comes and goes [employer] Required: No Allergies No Known Allergies Allergy (Verified 09/09/20 07:54) Medication List - Last Reconciled 08/11/24 by Giovanni Singleton MD aspirin 81 mg PO BEDTIME atorvastatin 40 mg PO BEDTIME cyanocobalamin (vitamin B-12) 1,000 mcg PO BEDTIME lisinopril 5 mg PO BEDTIME nitroglycerin 0.4 mg sublingual Q5M PRN rivaroxaban (Xarelto) 20 mg PO DAILY HPI Comments Details: Thank you for referring Romeo in cardiology consultation today for 2nd opinion. Patient was a pleasant 69-year-old male who at age 46 had anterior wall myocardial infarction undergoing bare metal stent placement 2000. Following that in 2010 he started having recurrent chest pain syndrome underwent a cardiac catheterization which showed significant InStent restenosis underwent a drug-eluting stent placement to the proximal LAD. Since then he has been doing well till about 4 years ago when he developed atrial fibrillation noted in the setting of syncopal episode. He was then monitored and had atrial fibrillation treated with his overnight houseperson. Subsequently last late summer early fall he started having persistent atrial fibrillation undergoing cardioversion subsequently underwent ablation in April. He has been managed with Xarelto therapy for anticoagulation for the last 4 years. He has also been on low-dose aspirin therapy due to his history of CAD although that has been stable. Since June he started developing chest discomfort which is similar to his discomfort prior to his myocardial infarction in good Cardizem really concerned. Symptoms mostly happening at night. He said usually happens few hours after he has it evening meals, symptoms relieved by sublingual nitroglycerin. For this he underwent a stress echocardiogram and this showed apical wall motion abnormality rest and with exercise, this apical wall motion was not present on the prior echocardiogram from September. However patient's exercise capacity was excellent without any EKG changes of ischemia. His symptoms are not with exertion. His symptoms are fairly atypical. He is scheduled to see GI in the near future. He is currently well maintained on medical therapy. He was prescribed isosorbide but had severe reaction with more intense chest pressure and stopped taking them. He says LDL is well optimized. His blood pressure is generally well controlled. He occasionally gets lightheaded. [facility] Medical History Coronary artery disease Paroxysmal atrial fibrillation High cholesterol Hypertension Surgical History Hx of cholecystectomy Status post insertion of drug-eluting stent into left anterior descending (LAD) artery for coronary artery disease Family History Mother Afib Social History Alcohol intake: current Alcohol intake frequency: a few times a month Alcohol type: beer Cigarette Packs Per Day: 2 Cigarettes Per Day: 40.0 Years Smoked: 9 service: No Current occupational status: employed Review [employer] Systems Const Denies chills, Denies daytime sleepiness, Denies fatigue, Denies fever(s), Denies frequent falls, Denies poor appetite, Denies snoring, Denies stops breathing during sleep, Denies weakness, Denies weight gain and Denies weight loss Eyes Denies loss of vision ENT Denies dizziness and Denies hearing loss Card Reports chest pain, Denies claudication, Denies leg edema, Denies lightheadedness, Denies palpitations, Denies dyspnea, Denies dyspnea on exertion and Denies orthopnea Resp Denies cough, Denies excessive phlegm production, Denies dyspnea, Denies dyspnea on exertion, Denies snoring and Denies wheezing GI Denies abdominal pain, Denies hematochezia, Denies change in bowel habits, Denies nausea and Denies vomiting Denies dysuria and Denies urinary frequency Musc Denies arthralgias, Denies muscle weakness, Denies numbness and Denies other (frequent falls) Skin/Breast Denies nail changes and Denies rash Neuro Denies Abnormal speech present, Denies dizziness, Denies frequent falls, Denies loss of vision, Denies memory loss, Denies numbness and Denies weakness Psych Denies depression and Denies memory loss Endo Denies fatigue and Denies palpitations Lc/Lymph Reports easy bruising and Reports other (anemia) Aller/Immun Denies wheezing Physical Exam Vital Signs: Last Vital Signs Pulse 58 08/11/24 10:00 BP 120/76 08/11/24 10:00 BMI result Body Mass Index 25.7 Const General: cooperative, comfortable, no acute distress, alert, awake, Physically active and well groomed Nutritional Appearance: average body habitus Orientation/consciousness: patient oriented x3 Limitations: no limitations HEENT Head: Yes normocephalic and Yes atraumatic Neck Neck: Yes trachea midline, Yes supple and Yes no JVD Carotids: no bruits Resp Effort & Inspection: normal respiratory effort Auscultation: clear to auscultation bilaterally Cardio Jugular venous distension: no JVD Palpation: normal PMI Rate: regular rate Rhythm: regular rhythm Heart sounds: S1 normal heart sound present, S2 normal heart sound present, no click, no gallops, no murmurs and no rubs GI Auscultation: normal bowel sounds Skin General skin exam: no rashes or lesions noted Neuro General: patient oriented x3 and no focal motor deficits Speech: No Abnormal speech present Extrem General: Yes no clubbing, cyanosis or edema Psych Appearance: grossly normal Office Procedures EKG Details: EKG shows normal sinus rhythm with septal infarct pattern [id number], Complete Assessment & Plan Assessment & Plan (1) Chest pain: Code(s): R07.9 - Chest pain, unspecified Category: Medical Plan: Patient with recurrent chest pain syndrome similar to his prior unstable angina kind of discomfort prior to his anterior wall myocardial infarction although with atypical features as pain happens mostly at rest and without exercise but relieved with nitroglycerin. Also he has new apical wall motion abnormality noted on resting echocardiogram during stress echocardiogram which is new. However his EKG changes are unremarkable with exercise at high workload. Given his strong history I would suggest him to undergo cardiac catheterization to definitively rule out CAD as a cause of his discomfort. Meanwhile I have advised him to start amlodipine 2.5 mg at suppertime. Continue take nitroglycerin as needed. Avoid sudden strenuous activity. If he was prolonged chest discomfort he is advised to come to emergency room that is unrelieved by sublingual nitroglycerin. We discussed the rationale for cardiac catheterization, he understands agrees. If this is negative, will pursue GI workup. This was discussed with him. Understands agrees. Continue aspirin therapy for now. If his cardiac catheterization does not show any significant CAD that requires intervention, aspirin can be discontinued amlodipine can be discontinued as well. This was discussed. (2) Coronary artery disease: Comment: Bare metal stent to LAD in 2000 for acute myocardial infarction. Followed by drug-eluting stent to LAD in 2009 for what appears to be in stent restenoses Code(s): I25.10 - Atherosclerotic heart disease of [place] coronary artery without angina pectoris Category: Medical Plan: CAD with premature atherosclerosis with anterior STEMI at age of 46. Continue aggressive risk factor modification. If he has no significant intervenable CAD, would discontinue aspirin therapy and continue full oral anticoagulation with Xarelto as prescribed below. Continue high-intensity statin therapy with target goal LDL closer to 55 mg/dL. Will obtain lipid panel. Blood pressure is well optimized. Continue current therapy. (3) Paroxysmal atrial fibrillation: Code(s): I48.0 - Paroxysmal atrial fibrillation Category: Medical Plan: Paroxysmal atrial fibrillation status post ablation. He is doing well with no recurrent symptoms at this point time. Continue to monitor by his wearable device. Advised to call me with new symptoms. Continue full oral anticoagulation, currently on Xarelto 20 mg daily. CHADSVASc score of 3. Rationale for anticoagulation was discussed and he understands agrees. Will follow up in the clinic in 4 weeks time, sooner p.r.n.. Ache in his care Orders: Orders Cardiac Cath LT w PCI 1 Week R07.9 - Chest pain, unspecified Medications: New amlodipine 2.5 mg PO QPM 30 tabs 5RF R07.9 - Chest pain, unspecified Coding Level of Care Code New Pt Level 4 (55016) Complex EM visit Add On G2211 Diagnoses Chest pain R07.9 Coronary artery disease I25.10 Paroxysmal atrial fibrillation I48.0 CPT Codes EKG - CPT: 03558-[id number], Complete ([id number])
--- OUTSIDE RECORDS SUMMARY | 2024-08-11 11:11 | XMS_ITS | Continuity of Care Document ---
Author Organization [facility] ter Address [address] [place] [address]- Care Team Providers Care Neonatal Critical Care Nurse Name Role Phone Christine PALMA, Beth Chappell Primary Care Physician Encounter [facility] [place] Date(s): 08/03/24 - 08/03/[address] [address]- Encounter Diagnosis Chest pain(Final) - 08/03/24 History of CAD (coronary artery disease)(Final) - 08/03/24 Discharge Disposition: A-D/C Home Attending Physician: Fuad Singh MD Admitting Physician: Fuad Singh MD Referring Physician: Not on Staff, Referring MD Encounter Type: Disch ES Allergies, Adverse Reactions, Alerts No Known Allergies Medications Aspirin = 81 mg, Daily, 0 Refills, Maintenance, 12/06/11 5:54:19 PM EDT Start Date: 12/06/11 Status: Ordered Repeat number: 1 atorvastatin 40 mg oral tablet 1 tablet = 40 mg, By Mouth, Daily at bedtime, # 90 tablet, 0 Refills, Maintenance, 04/25/24 6:38:00 PM EDT, Tablet, Partial fill upon patient request if the prescription is for a schedule II opioid drug. Start Date: 04/25/24 Status: Ordered Quantity: 90.0 Unit: tablet Repeat number: 1 isosorbide mononitrate 30 mg oral tablet, extended release 30 mg, 1, tablet, By Mouth, Daily in AM, # 30 tablet, Refills 0, Tot. Refills 0, Maintenance, 08/01/24 4:22:00 PM EST, Route to Pharmacy Electronically, [facility]/pharmacy #[id number], Partial fill upon patient request if the prescription is for a schedule II opioid drug., 183, cm, 07/21/24 13:27:00 EST, Height,82.7, kg, 07/14/24 21:54:00 EST, Dry Weight Start Date: 08/01/24 Status: Ordered Quantity: 30.0 Unit: tablet Repeat number: 1 lisinopril 5 mg oral tablet 5 mg, 1, tablet, By Mouth, Daily at bedtime, # 90 tablet, Refills 0, Maintenance, 04/25/24 6:36:00 PM EDT, Partial fill upon patient request if the prescription is for a schedule II opioid drug. Start Date: 04/25/24 Status: Ordered Quantity: 90.0 Unit: tablet Repeat number: 1 Nitrostat 0.4 mg sublingual tablet = 0.4 mg, Sublingual, Every 5 minutes, PRN Chest Pain, # 30 tablet, 0 Refills, Maintenance, 07/31/24 1:49:00 PM EST, Tablet, [facility] #[id number], Partial fill upon patient request if the prescription is for a schedule II opioid drug., 183, cm, 07/21/24 13:27:00 EST, Height, 82.7, kg, 07/14/2421:54:00 EST, Dry Weight Start Date: 07/31/24 Status: Ordered Quantity: 30.0 Unit: tablet Repeat number: 1 Vitamin B12 Daily, 0 Refills, Maintenance, 04/25/18 4:37:31 PM EDT Start Date: 04/25/18 Status: Ordered Repeat number: 1 Xarelto 20 mg oral tablet 1 tablet = 20 mg, By Mouth, Daily at supper, # 90 tablet, 2 Refills, Maintenance, 03/25/24 4:14:00 PM EDT, Tablet, [facility] #[id number], Partial fill upon patient request if the prescription is for a schedule II opioid drug., 182.8, cm, 11/26/23 9:35:00 EDT, Height Start Date: 03/25/24 Status: Ordered Quantity: 90.0 Unit: tablet Repeat number: 3 Results Radiology Reports * Exam Date Time Procedure Performing Provider Status 08/03/24 1:[address] Angio Abdomen Eloise Cisneros; Aut h (Verified) Notes: (CT Angio Abdomen) Reason For Exam: Renal artery dissection suspected;Other: RESULT: CT Angio Abdomen EXAMINATION: CT Angio Chest, CT Angio Abdomen INDICATION: Hx of Present Illness: CP; Reason: Other:; Aortic disease, nontraumatic; Clinical Question(s): Other:; Aortic Dissection TECHNIQUE: Spiral CTA of the chest and abdomen was performed after rapid IV contrast administrationwithout cardiac gating, triggered by an CARO on the main pulmonary artery. Images are formatted in multiple planes using 2-D multiplanar and 3-D maximum intensity projection. 100 cc of Isovue 300 was administered intravenously. Weight-based protocol using automatic tube modulation was used to optimize exposure parameters. CTDIvol Body: 10.96 mGy, DLP Body: 403 mGy*cm. COMPARISONS: None. FINDINGS: Coronary artery calcifications. No evidence of aortic aneurysm or dissection. Patent splanchnic vasculature. Incidental note is made of two right renal arteries. Liver and spleen image normally. Indeterminate 1.2 cm inferior pole right renal lesion Left kidney images normally. Adrenal glands image normally. Pancreas images normally. No enlarged mediastinal, hilar or axillary lymph nodes within the chest. No enlarged lymph nodes within the abdomen. A few scattered diverticula within the left colon. No focal airspace disease or pleural effusion. IMPRESSION: No acute findings in the chest or abdomen. Indeterminate right renal lesion. Nonemergent dedicated renal CT or MR is recommended. WSN: [id number] Ordering Physician: Katty Jeffries Dictated By: Vernon Taylor MD Dictated Date/Time: 08/03/24 1:55 pm Reviewed By: Vernon Taylor MD Signed By: Vernon Taylor MD Signed Date/Time: 08/03/24 1:55 pm Transcribed By: DIONICIO Transcribed Date/Time: 08/03/24 1:44 pm * Exam Date Time Procedure Performing Provider Status 08/03/24 1:[address] Angio Chest Eloise Cisneros; Auth (Verified) Notes: (CT Angio Chest) Reason For Exam: Aortic disease, nontraumatic;Other: RESULT: CT Angio Chest EXAMINATION: CT Angio Chest, CT Angio Abdomen INDICATION: Hx of Present Illness: CP; Reason: Other:; Aortic disease, nontraumatic; Clinical Question(s): Other:; Aortic Dissection TECHNIQUE: Spiral CTA of the chest and abdomen was performed after rapid IV contrast administrationwithout cardiac gating, triggered by an CARO on the main pulmonary artery. Images are formatted in multiple planes using 2-D multiplanar and 3-D maximum intensity projection. 100 cc of Isovue 300 was administered intravenously. Weight-based protocol using automatic tube modulation was used to optimize exposure parameters. CTDIvol Body: 10.96 mGy, DLP Body: 403 mGy*cm. COMPARISONS: None. FINDINGS: Coronary artery calcifications. No evidence of aortic aneurysm or dissection. Patent splanchnic vasculature. Incidental note is made of two right renal arteries. Liver and spleen image normally. Indeterminate 1.2 cm inferior pole right renal lesion Left kidney images normally. Adrenal glands image normally. Pancreas images normally. No enlarged mediastinal, hilar or axillary lymph nodes within the chest. No enlarged lymph nodes within the abdomen. A few scattered diverticula within the left colon. No focal airspace disease or pleural effusion. IMPRESSION: No acute findings in the chest or abdomen. Indeterminate right renal lesion. Nonemergent dedicated renal CT or MR is recommended. WSN: [id number] Ordering Physician: Katty Jeffries Dictated By: Vernon Taylor MD Dictated Date/Time: 08/03/24 1:55 pm Reviewed By: Vernon Taylor MD Signed By: Vernon Taylor MD Signed Date/Time: 08/03/24 1:55 pm Transcribed By: DIONICIO Transcribed Date/Time: 08/03/24 1:44 pm * Exam Date Time Procedure Performing Provider Status 08/03/24 11:02 AM Chest 2 Views Frontal and Lat Steven , Jacquelin; Auth (Verified) Notes: (Chest 2 Views Frontal and Lat) Reason For Exam: Chest Pain;Other: RESULT: Chest 2 Views Frontal and Lat Chest 2 Views Frontal and Lat Reason: Other:; Chest Pain; Clinical Question(s): Other: COMPARISON: 07/14/2024 and 10/05/2020 FINDINGS: LINES AND TUBES: Loop recorder. LUNGS AND PLEURA: Clear lungs. Normal pulmonary vascularity. No pleural effusion. No pneumothorax. HEART, MEDIASTINUM AND CELSA: Heart is normal in size. Coronary artery stent. Normal mediastinal and hilar contour. BONES AND SOFT TISSUES: No acute abnormality. Spine degenerative changes. Cholecystomy clips. IMPRESSION: No acute abnormality. WSN: [id number] Ordering Physician: Srinivasan Roche Dictated By: Ishan Fair MD Dictated Date/Time: 08/03/24 11:36 a Reviewed By: Ishan Fair MD Signed By: Ishan Fair MD Signed Date/Time: 08/03/24 11:36 am Transcribed By: DIONICIO Transcribed Date/Time: 08/03/24 11:35 am Vital Signs Most recent to oldest [Reference Range]: 1 2 3 Height 183 cm (08/03/24 10:59 AM) 183 cm (08/03/24 10:31 AM) Weight 84 kg (08/03/24 10:59 AM) 84 kg (08/03/24 10:31 AM) Oxygen Saturation [94-100 %] 100 % (08/03/24 12:57 PM) 100 % (08/03/24 10:31 AM) 100 % (08/03/24 10:30 AM) Pulse Rate [55-90 bpm] 50 bpm *L* (08/03/24 2:44 PM) 50 bpm *L* (08/03/24 1:15 PM) 50 bpm *L* (08/03/24 12:57 PM) Body Mass Index [18.5-24.99 kg/m2] 25.08 kg/m2 *H* (08/03/24 10:31 AM) Blood Pressure [90-138/55-84 mm Hg] 114/69mm Hg (08/03/24 2:44 PM) 113/70mm Hg (08/03/24 1:15 PM) 105/67mm Hg (08/03/24 12:58 PM) Respiratory Rate [16-30 br/min] 18 br/min (08/03/24 10:31 AM) Temperature [96.8-100.4 DegF] 97.9 DegF (08/03/24 10:31 AM) Mode of Delivery (Oxygen) Room air (08/03/24 10:31 AM) Room air (08/03/24 10:30 AM) Blood pressure sites Arm, right (08/03/24 10:31 AM) Temperature Route Oral (08/03/24 10:31 AM) Dry Weight 84 kg (08/03/24 10:59 AM) 84 kg (08/03/24 10:31 AM) Weight Obtained Via Patient/family state d (08/03/24 10:31 AM) Dry Weight Obtained Via Patient/family s tated (08/03/24 10:31 AM) Social History Social History Type Response Smoking Status Former smoker; Tobac co user in household: No; Other: pt states he quit smoking when he was 23; entered on: 03/02/16 Sex Sex Representation Male (finding) Note * Katty Jeffries MD: PERFORM Event Display: Patient Education Leaflets Authored Date: [id number] Uncertain Causes of Chest Pain ?? [id number] Uncertain Causes of Chest Pain Chest pain can happen for a number of reasons. Sometimes the cause can't be determined. If your??condition does not seem serious, and your pain does not appear to be coming from your heart, your healthcare provider may recommend watching it closely. Sometimes the signs of a serious problem take more time to appear. Many problems not related to your heart can cause chest pain. These include: ??? Musculoskeletal. Costochondritis is an inflammation of the tissues around the ribs that can occur from trauma or overuse injuries, or a strain of the muscles of the chest wall. ??? Respiratory. Pneumonia, collapsed lung (pneumothorax), or inflammation of the lining of the chest and lungs (pleurisy). ??? Gastrointestinal. Esophageal reflux, heartburn, ulcers, or gallbladder disease. ??? Anxiety and panic disorders ??? Nerve compression and inflammation ??? Rare problems such as aortic aneurysm or aortic dissection (a swelling of the large artery coming out of the heart or a tear in the wall of the artery), or pulmonary embolism (a blood clot in the lungs). Home care After your visit, follow these recommendations: ??? Rest today and avoid strenuous activity. ??? Take any prescribed medicine as directed. ??? Be aware of any recurrent chest pain and notice any changes ?? Follow-up care Follow up with your healthcare provider if you don't start to feel better within 24 hours, or as advised. ?? Call 911 Call 911 if any of these occur: ??? A change in the type of pain: if it feels different, becomes more severe, lasts longer, or begins to spread into your shoulder, arm, neck, jaw or back ??? Shortness of breath or increased pain with breathing ??? Weakness, dizziness, or fainting ??? Rapid heartbeat ??? Crushing sensation in your chest ??? Coughing up more than a small amount of blood. ?? When to seek medical advice Call your healthcare provider right away if any of the following occur: ??? Cough with dark coloredsputum (phlegm) or small amount of blood ??? Fever of 100.4??F??(38??C) or higher, or as directed by your healthcare provider ??? Swelling, pain or redness in one leg ?? Last Reviewed Date: 2021 ?? [id number] [employer]. All rights reserved. This information is not intended as a substitute for professional medical care. Always follow your healthcare professional's instructions. ?? Patient Care team information Care Team Personnel Name: Christine PALMA, Beth Chappell Position: [facility] Outreach Member Role: PCP Address: [address] [place] [address] [address] [facility] [place] [address]- Telecom: Name: Rachana Potter Position: [facility] Outreach Member Role: Lifetime Consulting Physician Name: Dami Villaseñor MD Position: [facility] Cardiology MD Member Role: Lifetime Consulting Physician Address: [address] [facility] [address], [address] [place] [address]- [place] Telecom: Name: Deb Meléndez RN Position: [facility] OB RN Member Role: Primary Care Nurse Care Team Related Persons Name: VERNON COX Insurance Providers Guarantor name: MILES [employer] Health Plan Information #: 1 Payer: MEDICARE PART B OUTPT Member Number: [id number] Policy Number: NA Group Number: NA Health Plan Information #: 2 Payer: MEDEX Member Number: [id number] Policy Number: NA Group Number: NA
--- OUTSIDE RECORDS SUMMARY | 2024-08-11 11:11 | XMS_ITS | Continuity of Care Document ---
Author Organization [facility] Address [address] [place] [address]- Care Team Providers Care Pneumatic Tool Repairer Name Role Phone Christine PALMA, Beth Chappell Primary Care Physician [phone] [place] [facility] [place]): [place] [facility] [address] [place] [address]- Attending Physician: Onel Gonzalez Admitting Physician: Onel Gonzalez Referring Physician: AdmtrOnel Encounter Type: Triage Allergies, Adverse Reactions, Alerts No Known Allergies [...] 4:22:00 PM EST, Route to Pharmacy Electronically, [facility]/pharmacy #[id number], Partial fill upon patient request if the [...] Refills, Maintenance, 07/31/24 1:49:00 PM EST, Tablet, [facility] #[id number], Partial fill upon patient request if the [...] Refills, Maintenance, 03/25/24 4:14:00 PM EDT, Tablet, [facility] #[id number], Partial fill upon patient request if the prescription is for a schedule II opioid drug., 182.8, cm, 11/26/23 9:35:00 EDT, Height Start Date: 03/25/24 Status: Ordered Quantity: 90.0 Unit: tablet Repeat number: 3 Social History Social History Type Response Smoking Status Former smoker; Tobac co user in household: No; Other: pt states he quit smoking when he was 23; entered on: 03/02/16 Sex Sex Representation Male (finding) Patient Care team information Care Team Personnel Name: Beth King MD Position: S Outreach Member Role: PCP Address: [address] [place] [address] [address] Personal Primary [facility] Weight Management [address] Telecom: Name: Rachana Potter Position: [facility] Outreach Member Role: Lifetime Consulting Physician Name: Dami Villaseñor MD Position: [facility] Cardiology MD Member Role: Lifetime Consulting Physician Address: [address] [place] [address], [address] [place] [address] Cardiology [place], [place] [address] Telecom: Name: Deb Meléndez RN Position: [facility] OB RN Member Role: Primary Care Nurse Care Team Related Persons Name: VERNON COX Insurance Providers Guarantor name: MIL[employer] Health Plan Information #: 1 Payer: MEDICARE PART B OUTPT Member Number: NA Policy Number: NA Group Number: NA Health Plan Information #: 2 Payer: MEDEX Member Number: NA Policy Number: NA Group Number: NA
--- OUTSIDE RECORDS SUMMARY | 2024-08-11 11:11 | XMS_ITS | Continuity of Care Document ---
Author Organization [facility] Address [address] [place] [address]- Care Team Providers Care Process Lead Name Role Phone Christine PALMA, Beth Chappell Primary Care Physician Encounter [facility] [place] Date(s): 06/03/24 - 08/07/24 [facility] [address] [place] [address]- Attending Physician: Ezra Renee MD Admitting Physician: Ezra Renee MD Referring Physician: Beth King MD Encounter Type: Pre-OutPatient One Time Allergies, Adverse Reactions, Alerts No Known Allergies [...] 4:22:00 PM EST, Route to Pharmacy Electronically, [facility]/pharmacy #[id number], Partial fill upon patient request if the [...] Refills, Maintenance, 07/31/24 1:49:00 PM EST, Tablet, [facility] #[id number], Partial fill upon patient request if the [...] Refills, Maintenance, 03/25/24 4:14:00 PM EDT, Tablet, [facility] #[id number], Partial fill upon patient request [...] Position: S Outreach Member Role: PCP Address: [address] [place] [address] [address] Personal Primary [facility] Weight Management [address] Telecom: Name: Rachana Potter Position: [facility] Outreach Member Role: Lifetime Consulting Physician Name: Dami Villaseñor MD Position: [facility] Cardiology MD Member Role: Lifetime Consulting Physician Address: [address] [place] [address], [address] [place] [address] Cardiology [place], [place] [address] Telecom: Name: Deb Meléndez RN Position: [facility] OB RN Member Role: Primary Care Nurse Care Team Related Persons Name: VERNON COX Insurance Providers Guarantor name: MIL[employer] Health Plan Information #: 1 Payer: MEDICARE PART B OUTPT Member Number: [id number] Policy Number: NA Group Number: NA Health Plan Information #: 2 Payer: MEDEX Member Number: [id number] Policy Number: NA Group Number: NA
--- OUTSIDE RECORDS SUMMARY | 2024-08-11 11:12 | XMS_ITS | Patient Health Record ---
Author Organization [facility] Address [address] [place] [address] Care Team Providers Care Waste Management Specialist Name Role Phone IZABELA KING Unavailable [phone] STEVE KING Unavailable [phone] TERRA BJ Unavailable [phone] SCOOTERJAZMINKIMMIE Unavailable [phone] IDALMIS MULUGETA Unavailable [phone] ALLERGIES Allergen (clinical drug ingredient) Drug/Non Drug Allergy documented on EMR Reaction Allergy Type Onset Date Status Bee Sting swelling Allergy Active RESULTS Component Value Reference Range Notes LIPID PANEL, STANDARD Reviewed date:03/28/2024 11:14:55 AM Interpretation: Performing Lab:NL2, [facility] [address] Janene Campo Notes/Report: FASTING: NO FASTING:NO 0; 0; 0; 0; 0 CHOLESTEROL, TOTAL 124 <200 mg/dL HDL CHOLESTEROL 52 > OR = 40 mg/dL TRIGLYCERIDES 121 <150 mg/dL LDL-CHOLESTEROL 52 Reference range: <100 Desirable range <100 mg/dL for primary prevention; <70 mg/dL for patients with CHD or diabetic patients with > or = 2 CHD risk factors. LDL-C is now calculated using the Johanna calculation, which is a validated novel method providing better accuracy than the Friedewald equation in the estimation of LDL-C. Hi SALINAS et al. ANDRE. 2013;310(19): 6133-8428 (http://education.[employer]ble [employer].com/faq/NCB554) CHOL/HDLC RATIO 2.4 <5.0 (calc) NON HDL CHOLESTEROL 72 <130 mg/dL (calc) For patients with diabetes plus 1 major ASCVD risk factor, treating to a non-HDL-C goal of <100 mg/dL (LDL-C of <70 mg/dL) is considered a therapeutic option. COMPREHENSIVE METABOLIC PANE L Reviewed date:03/28/2024 11:15:02 AM Interpretation: Performing Lab:RAKELAffashion, [facility] Janene Campo Notes/Report: 0; 0; 0; 0; 0 FASTING:NO FASTING: NO GLUCOSE 104 65-139 mg/dL Non-fasting reference interval UREA NITROGEN (BUN) 13 7-25 mg/dL CREATININE 0.89 0.70-1.35 mg/dL EGFR 93 > OR = 60 mL/min/1.73m2 BUN/CREATININE RATIO SEE NOTE: 6-22 (calc) Not Reported: BUN and Creatinine are within reference range. SODIUM 140 135-146 mmol/L POTASSIUM 3.9 3.5-5.3 mmol/L CHLORIDE 105 98-110 mmol/L CARBON DIOXIDE 28 20-32 mmol/L CALCIUM 9.4 8.6-10.3 mg/dL PROTEIN, TOTAL 6.3 6.1-8.1 g/dL ALBUMIN 4.2 3.6-5.1 g/dL GLOBULIN 2.1 1.9-3.7 g/dL (calc) ALBUMIN/GLOBULIN RATIO 2.0 1.0-2.5 (calc) BILIRUBIN, TOTAL 0.5 0.2-1.2 mg/dL ALKALINE PHOSPHATASE 64 35-144 U/L AST 17 10-35 U/L ALT 22 9-46 U/L CBC (INCLUDES DIFF/PLT) Reviewed date:03/28/2024 11:14:55 AM Interpretation: Performing Lab:RAKEL2, [facility] Janene Campo Notes/Report: FASTING: NO FASTING:NO 0; 0; 0; 0; 0 WHITE BLOOD CELL COUNT 5.5 3.8-10.8 Thousand/ uL RED BLOOD CELL COUNT 5.22 4.20-5.80 Million/uL HEMOGLOBIN 16.1 13.2-17.1 g/dL HEMATOCRIT 49.3 38.5-50.0 % MCV 94.4 80.0-100.0 fL MCH 30.8 27.0-33.0 pg MCHC 32.7 32.0-36.0 g/dL RDW 12.8 11.0-15.0 % PLATELET COUNT 188 140-400 Thousand/uL MPV 10.4 7.5-12.5 fL ABSOLUTE NEUTROPHILS 3366 8270-1291 cells/uL ABSOLUTE LYMPHOCYTES 1287 346-9395 cells/uL ABSOLUTE MONOCYTES 380 200-950 cells/uL ABSOLUTE EOSINOPHILS 39 15-500 cells/uL ABSOLUTE BASOPHILS 28 0-200 cells/uL NEUTROPHILS 61.2 LYMPHOCYTES 30.7 MONOCYTES 6.9 EOSINOPHILS 0.7 BASOPHILS 0.5 HEMOGLOBIN A1c Reviewed date:03/28/2024 11:15:52 AM Interpretation: Performing Lab:NL2, [facility] Janene Campo Notes/Report: 0; 0; 0; 0; 0 FASTING:NO FASTING: NO HEMOGLOBIN A1c 5.9 <5.7 % of total Hgb For someone without known diabetes, a hemoglobin A1c value between 5.7% and 6.4% is consistent with prediabetes and should be confirmed with a follow-up test. For someone with known diabetes, a value <7% indicates that their diabetes is well controlled. A1c targets should be individualized based on duration of diabetes, age, comorbid conditions, and other considerations. This assay result is consistent with an increased risk of diabetes. Currently, no consensus exists regarding use of hemoglobin A1c for diagnosis of diabetes for children. This test was performed on the Vincent serenity c503 platform. Effective 10/01/23, a change in test platforms from the Eli [facility] Provider to the Vincent serenity c503 may have shifted HbA1c results compared to historical results. Based on laboratory validation testing conducted at [employer], the Vincent platform relative to the Eli platform had an average increase in HbA1c value of < or = 0.3%. This difference is within accepted variability established by the National Glycohemoglobin Standardization Program. Note that not all individuals will have had a shift in their results and direct comparisons between historical and current results for testing conducted on different platforms is not recommended. VITAMIN D,25-OH,TOTAL,IA Reviewed date:03/28/2024 11:15:02 AM Interpretation: Performing Lab:NL2, [facility] Janene Campo Notes/Report: 0; 0; 0; 0; 0 FASTING:NO FASTING: NO VITAMIN D,25-OH,TOTAL,IA 32 30-100 ng/mL Vitamin D Status 25-OH Vitamin D: Deficiency: <20 ng/mL Insufficiency: 20 - 29 ng/mL Optimal: > or = 30 ng/mL For 25-OH Vitamin D testing on patients on D2-supplementation and patients for whom quantitation of D2 and D3 fractions is required, the QuestAssureD(TM) 25-OH VIT D, (D2,D3), LC/MS/MS is recommended: order code [id number] (patients >2yrs). See Note 1 Note 1 For additional information, please refer to http://education.Revolucionadolabs/faq/HHD876 (This link is being provided for informational/ educational purposes only.) US Extremity [employer] Reviewed date:11/29/2023 02:01:21 PM Interpretation: Performing Lab: Notes/Report: Original Ordering Provider: BJ ELLISON PA-C (EMERY) [facility] REASON FOR REFERRAL Reason Colonoscopy with [facility] ss GI Diagnosis 1 Encounter for screen ing for malignant neoplasm of colon (Z12.11) Referral Organization [facility] Referring Provider First Name IZABELA Referring Provider Last Name TRUONG Referring Provider Speciality Internal edicine Referred Provider Specialty Gastroentero logy General Notes [facility] [place] [facility], [address] [facility] 419, [phone] Clinical Notes Beverley Romero 2023 04:19:11 PM > waiting on patient to let us know what doctors he prefers, Rachana Potter 07/28/2024 10:14:47 AM >Referral with note and labs faxed to Dr. Hawkins office. Paper copy mailed to pt home for copy and record. TY.Heather Jazlyn 08/06/2024 03:00:55 PM > DR. hawkins office has not reached out to patient he prefers to see dr hammond will make a new referral Referral Priority Routine Diagnosis 1 Encounter for screen ing for malignant neoplasm of colon (Z12.11) Referral Organization [facility] Referring Provider First Name IZABELA Referring Provider Last Name TRUONG Referring Provider Speciality Internal edicine Referred Provider Jeremías Hammond Referred Provider Specialty Gastroentero logy General Notes Beverley Romero 2024 03:02:23 PM >faxed to dr hammond Referral Priority Routine MEDICATIONS Medication SIG (Take, Route, Frequency, Duration) Notes Start Date End Date Status Xarelto 20 MG 1 tablet with food O rally Once a day Active B12 5000 MCG as directed Sublingual Active Atorvastatin Calcium 40 MG 1 tablet Oral ly Once a day for 90 days Active Lisinopril 5 MG 1 tablet Orally Once a day Active Nitroglycerin 0.4 MG 1 tablet under the tongue and allow to dissolve as needed. Take every 5 minutes up to 3 times if chest pain persists Sublingual Three times a day Active SOCIAL HISTORY Tobacco Use: Social History Observation Description Date Details (start date - stop date) Current Smoker NA - NA Sex Assigned At : Social History Observation Description Sex Assigned At Unknown Tobacco Use/Smoking Question Answer Notes Are you a current smoker How often do you smoke cigarettes? every day How many cigarettes a day do you smoke? 31 or mo re Alcohol Screen (Audit-C) Question Answer Notes Did you have a drink contain ing alcohol in the past year? Yes How often did you have a dri nk containing alcohol in the past year? 4 or more times a week (4 points) Points 4 Interpretation Positive Section Notes: pt retired. pt retired. pt retired. pt retired. pt retired. pt retired. PROBLEMS Problem Type ICD Code Onset Dates Problem Status W/U Status Risk SNOMED Code Notes Problem Melanoma in situ of other sites (D03.8) Active confirmed Melanoma in sit u (09630132) Problem Vitamin D deficiency, unspecified (E55.9) Active confirmed 90384821 Problem Essential (primary) hypertension (I10) Active confirmed Essential hypertension (88357087) Problem Encounter for general adult medical examination without abnormal findings (Z00.00) Active confirmed 313225839 Problem Encounter for screening for malignant neoplasm of colon (Z12.11) Active confirmed 084189411 Problem Encounter for screening for diabetes mellitus (Z13.1) Active confirmed 895141158 Problem Encounter for screening for lipoid disorders (Z13.220) Active confirmed 924886554 Problem Encounter for screening for cardiovascular disorders (Z13.6) Active confirmed 201369903 Problem Chronic anticoagulation (Z79.01) Active confirmed Use of anticoagulation (809470342) Problem Coronary artery disease involving douglas coronary artery of douglas heart without angina pectoris (I25.10) Active confirmed Atherosclerotic heart disease of douglas coronary artery without angina pectoris (811564461507479) Problem Coronary artery disease, unspecified vessel or lesion type, unspecified whether angina present, unspecified whether douglas or transplanted heart (I25.10) Active confirmed Atherosclerotic heart disease of douglas coronary artery without angina pectoris (927311705873547) Problem Hyperlipidemia, mixed (E78.2) Active confirmed Mixed hyperlipidemia (534570324) Problem Benign essential hypertension (I10) Active confirmed Benign es sential hypertension (8450682) Problem Atrial fibrillation (I48.91) Active confirmed Atrial fibrillation (80039171) Problem Leg mass, right (R22.41) Active confirmed 087670201 Problem Muscle rupture (T14.8XXA) Active confirmed 433105636 Problem Implantable loop recorder present (Z95.818) Active confirmed Implantable loo p recorder present (5232597806) Problem Light headed (R42) Active confirmed 386 891033 VITAL SIGNS Heart Rate 61 /min 08/06/2024 Oximetry 97 % 08/06/2024 Blood pressure diastolic 78 mm Hg 08/06/2024 Height 72 in 08/06/2024 Blood pressure systolic 126 mm Hg 08/06/2024 Weight 186.8 lbs 08/06/2024 BMI 25.33 kg/m2 08/06/2024 Encounters Encounter Location Date Provider Diagnosis [facility] [address] [place] [address] 07/09/2024 IZABELA KING [facility] [address] [place] [address] 10/24/2023 IZABELA KING Coronary artery dise ase involving douglas coronary artery of douglas heart without angina pectoris I25.10 ; Atrial fibrillation I48.91 ; Benign essential hypertension I10 and Hyperlipidemia, mixed E78.2 [facility] [address] [place] [address] 11/23/2023 BJ ELLISON Leg mass, right R22. 41 ; Atrial fibrillation I48.91 and Chronic anticoagulation Z79.01 [facility] [address] [place] [address] 04/01/2024 IZABELA KING Coronary artery dise ase involving douglas coronary artery of douglas heart without angina pectoris I25.10 ; Over weight E66.3 ; Prediabetes R73.03 ; BMI 26.0-26.9,adult Z68.26 and Hyperlipidemia, mixed E78.2 [facility] [address] [place] [address] 07/09/2024 IZABELA KING Adult general medica l exam Z00.00 and Prediabetes R73.03 [facility] [address] [place] [address] 07/18/2024 MULUGETA RAYGOZA Hospital discharge follow-up Z09 ; Coronary artery disease involving douglas coronary artery of douglas heart without angina pectoris I25.10 ; Atrial fibrillation I48.91 ; Hyperlipidemia, mixed E78.2 ; Chronic anticoagulation Z79.01 ; Implantable loop recorder present Z95.818 and Light headed R42 [facility] [address] [place] [address] 08/06/2024 KIMMIE HELMS Essential (primary) hypertension I10 ; Intermittent chest pain R07.9 ; Coronary artery disease, unspecified vessel or lesion type, unspecified whether angina present, unspecified whether douglas or transplanted heart I25.10 ; Hyperlipidemia, mixed E78.2 ; Chronic anticoagulation Z79.01 and Atrial fibrillation I48.[address] [facility] [address] [place] [address] 11/09/2023 VALENTÍNLAKIA TRUONG [facility] [address] [place] [address] 11/15/[address] [facility] [address] [place] [address] 07/03/[address] [facility] [address] [place] [address] 07/07/2024 IZABELA KING [address] [place], [place] 07/16/[address] [facility] [address] [place] [address] 07/18/[address] [facility] [facility] [address] [place], [place] 07/18/2024 MULUGETA RAYGOZA [facility] [address] [place] [address] 08/01/2024 VALENTÍNLAKIA TRUONG [address] [facility] [address] [address] 08/04/2024 IZABELA KING [facility] [address] [facility] [place] [address] 10/23/2023 BJ ELLISON [facility] [address] [facility] [place] [address] 07/09/2024 IZABELA KING [facility] [address] [facility] [place] [address] 07/09/2024 IZABELA KING ASSESSMENTS Encounter Date Diagnosis Assessment Notes Treatment Notes Treatment Clinical Notes Section Notes 10/24/2023 Coronary artery disease involving douglas coronary artery of douglas heart without angina pectoris (ICD-10 - I25.10) Patient is retired, lives at home with his , has 3 daughters and 5 grandkids. #Coronary artery disease status post stent placement in 2020, reports recent echocardiogram that upcoming appointment with cardiology. #Atrial fibrillation diagnosed in 2019, currently on Xarelto. #Hypertension/hyperl ipidemia in the setting of coronary artery disease schedule for follow-up with blood work/physical. 10/24/2023 Atrial fibrillation (ICD-10 - I48.91) Patient is retired, lives at home with his , has 3 daughters and 5 grandkids. #Coronary artery disease status post stent placement in 2020, reports recent echocardiogram that upcoming appointment with cardiology. #Atrial fibrillation diagnosed in 2019, currently on Xarelto. #Hypertension/hyperl ipidemia in the setting of coronary artery disease schedule for follow-up with blood work/physical. 04/01/2024 Coronary artery disease involving douglas coronary artery of douglas heart without angina pectoris (ICD-10 - I25.10) Patient is retired, lives at home with his , has 3 daughters and 5 grandkids. #Overweight: discuss body scan in detail, increased visceral adipose tissue and low muscle mass. We discussed lifestyle modifications in detail, pt is committed. we will followup in 3 months. #prediabetes: first time diagnosis in 03/2024: discussed life style #Coronary artery disease status post stent placement in 2020, reports recent echocardiogram that upcoming appointment with cardiology. #Atrial fibrillation diagnosed in 2019, currently on Xarelto. #Hypertension/hyperl ipidemia in the setting of coronary artery disease schedule for follow-up with blood work/physical. 04/01/2024 Over weight (ICD-10 - E66.3) Patient is retired, lives at home with his , has 3 daughters and 5 grandkids. #Overweight: discuss body scan in detail, increased visceral adipose tissue and low muscle mass. We discussed lifestyle modifications in detail, pt is committed. we will followup in 3 months. #prediabetes: first time diagnosis in 03/2024: discussed life style #Coronary artery disease status post stent placement in 2020, reports recent echocardiogram that upcoming appointment with cardiology. #Atrial fibrillation diagnosed in 2019, currently on Xarelto. #Hypertension/hyperl ipidemia in the setting of coronary artery disease schedule for follow-up with blood work/physical. 11/23/2023 Atrial fibrillation (ICD-10 - I48.91) # R calf mass. Unclear. Less likely tick bite, as there is no entry point. Area is mobile and mildly tender without erythema. Soft tissue US will be added. Pt to call if there are any changes. Tylenol for pain # Chronic AC due to AFib. Avoid NSAIDS Case discussed with collaborating physician Misti King who reviewed the assessment and plan. Chart, medications, labs, vital signs reviewed. Dictation was accomplished with the use of [employer] voice recognition software, prone to medical misidentifications and grammatical errors. This is unintentional and the practitioner does try to identify and correct these, but some could still be present. Please do not hesitate to contact practitioner for clarification. All questions answered to patients satisfaction. Patient verbalized understanding of diagnosis and treatments explained. To call sooner prior to next visit it any questions/concerns arise. 11/23/2023 Leg mass, right (ICD-10 - R22.41) # R calf mass. Unclear. Less likely tick bite, as there is no entry point. Area is mobile and mildly tender without erythema. Soft tissue US will be added. Pt to call if there are any changes. Tylenol for pain # Chronic AC due to AFib. Avoid NSAIDS Case discussed with collaborating physician Misti King who reviewed the assessment and plan. Chart, medications, labs, vital signs reviewed. Dictation was accomplished with the use of [employer] voice recognition software, prone to medical misidentifications and grammatical errors. This is unintentional and the practitioner does try to identify and correct these, but some could still be present. Please do not hesitate to contact practitioner for clarification. All questions answered to patients satisfaction. Patient verbalized understanding of diagnosis and treatments explained. To call sooner prior to next visit it any questions/concerns arise. 07/09/2024 Prediabetes (ICD-10 - R73.03) Patient is retired, lives at home with his , has 3 daughters and 5 grandkids. #Overweight: discuss body scan in detail, increased visceral adipose tissue and low muscle mass. We discussed lifestyle modifications in detail, pt is committed. we will followup in 3 months. #prediabetes: first time diagnosis in 03/2024: discussed life style Hemoglobin A1c in June has dropped down to 5.3/previous number was 5.9. He has made lifestyle modifications including cutting back on alcohol, has lost good amount of fat. #Coronary artery disease status post stent placement in 2020, reports recent echocardiogram that upcoming appointment with cardiology. #Atrial fibrillation diagnosed in 2019, currently on Xarelto. #Hypertension/hyperl ipidemia in the setting of coronary artery diseasePatient seen and examined. Comprehensive discussion was done on the following. 1. Nutrition: It is important to follow a healthy diet based on lots of vegetables and legumes and good fat. Avoid processed food and processed carbohydrates. Learn to prepare your own meals. Learn to read labels and avoid high fructose corn syrup, processed chemicals added to increase shelf life and preprepared meals. Avoid fast foods. Learn to eat slowly and plan meals for a week. Try to count calories and be mindful off daily calorie intake. Get into the habit of keeping an eye on your weight by using an appropriate scale. Learn to log exercise and discussed fitness Apps like [employer] which can help keep log off calories taken versus calories burned. Local food should be preferred. Discussed Dirty Dozen Versus Clean Fifteen. Discussed healthy supplements like fish oil, Tumeric, Curcumin, Melatonin, Resveratrol, Probiotics, Vitamin-D, Alpha-Lipoic acid, Vitamin-D and coconut oil. 2. It is important to exercise regularly. Is a good habit to walk at least 30-45 minutes a day. Gentle weightlifting with standard precautions to protect the back. Finding activity like cycling or hiking and get into the habit of engaging in it. Stretching before and after the exercises important. It is also important to contact me if there are any problems like shortness of breath, chest pain, back pain and joint or muscle pain associated with the exercise. 3. Discussed age appropriate screening guidelines. Colonoscopy needs to start at age 50 with stool for occult blood as appropriate. There is a new test that can test for genetic abnormalities in the stool sample. This would not replace a colonoscopy but could be used as a screening tool for patients who do not want a colonoscopy. We discussed the importance of early detection of colon cancer. 4. Discussed current PSA screening. PSA screening can be done in most patients between age 50 and 65. However early detection of prostate cancer needs to carefully be balanced with complications with treatment. These include incontinence, impotence etc. Each patient should decide if they would like to have this test. 5. Discussed safe driving and no use of smart phone while driving 6. Age-appropriate immunizations were discussed. A tetanus booster is needed every 10 years. Flu vaccine is recommended every year just before the start of the flu season. Shingles vaccine is recommended after age 50 but not all insurances cover it. Pneumonia vaccine is given after age 65 unless there are certain comorbidities for which it is started earlier. 7. Diagnostic labs were discussed. These could include CBC CMP and lipids with fasting blood glucose and insulin levels. Vitamin D and hemoglobin A1c testing might be appropriate. 07/09/2024 Adult general medical exam (ICD-10 - Z00.00) Patient is retired, lives at home with his , has 3 daughters and 5 grandkids. #Overweight: discuss body scan in detail, increased visceral adipose tissue and low muscle mass. We discussed lifestyle modifications in detail, pt is committed. we will followup in 3 months. #prediabetes: first time diagnosis in 03/2024: discussed life style Hemoglobin A1c in June has dropped down to 5.3/previous number was 5.9. He has made lifestyle modifications including cutting back on alcohol, has lost good amount of fat. #Coronary artery disease status post stent placement in 2020, reports recent echocardiogram that upcoming appointment with cardiology. #Atrial fibrillation diagnosed in 2019, currently on Xarelto. #Hypertension/hyperl ipidemia in the setting of coronary artery diseasePatient seen and examined. Comprehensive discussion was done on the following. 1. Nutrition: It is important to follow a healthy diet based on lots of vegetables and legumes and good fat. Avoid processed food and processed carbohydrates. Learn to prepare your own meals. Learn to read labels and avoid high fructose corn syrup, processed chemicals added to increase shelf life and preprepared meals. Avoid fast foods. Learn to eat slowly and plan meals for a week. Try to count calories and be mindful off daily calorie intake. Get into the habit of keeping an eye on your weight by using an appropriate scale. Learn to log exercise and discussed fitness Apps like [employer] which can help keep log off calories taken versus calories burned. Local food should be preferred. Discussed [employer] Versus [employer]. Discussed healthy supplements like fish oil, Tumeric, Curcumin, Melatonin, Resveratrol, Probiotics, Vitamin-D, Alpha-Lipoic acid, Vitamin-D and coconut oil. 2. It is important to exercise regularly. Is a good habit to walk at least 30-45 minutes a day. Gentle weightlifting with standard precautions to protect the back. Finding activity like cycling or hiking and get into the habit of engaging in it. Stretching before and after the exercises important. It is also important to contact me if there are any problems like shortness of breath, chest pain, back pain and joint or muscle pain associated with the exercise. 3. Discussed age appropriate screening guidelines. Colonoscopy needs to start at age 50 with stool for occult blood as appropriate. There is a new test that can test for genetic abnormalities in the stool sample. This would not replace a colonoscopy but could be used as a screening tool for patients who do not want a colonoscopy. We discussed the importance of early detection of colon cancer. 4. Discussed current PSA screening. PSA screening can be done in most patients between age 50 and 65. However early detection of prostate cancer needs to carefully be balanced with complications with treatment. These include incontinence, impotence etc. Each patient should decide if they would like to have this test. 5. Discussed safe driving and no use of smart phone while driving 6. Age-appropriate immunizations were discussed. A tetanus booster is needed every 10 years. Flu vaccine is recommended every year just before the start of the flu season. Shingles vaccine is recommended after age 50 but not all insurances cover it. Pneumonia vaccine is given after age 65 unless there are certain comorbidities for which it is started earlier. 7. Diagnostic labs were discussed. These could include CBC CMP and lipids with fasting blood glucose and insulin levels. Vitamin D and hemoglobin A1c testing might be appropriate. 07/18/2024 Hospital discharge follow-up (ICD-10 - Z09) Romeo is a pleasant 69-year-old male with a past medical history of hypertension, atrial fibrillation, hyperlipidemia, BPH, osteoarthritis, coronary artery disease, remote anterior wall DC status post PCI to the LAD with in-stent restenosis status post PCI, A-fib monitored via implantable loop recorder status post cardioversion and ablation 05/23/2024 presents to the office today for follow-up in regards to a hospital visit. #Hospital course:The patient presented to [facility] on 07/14 for a chief complaint of chest pain, and chest tightness. Upon arrival the patient was mildly hypertensive with blood pressure systolically 140, he was afebrile and was maintaining a 99% room air. Laboratory evaluation revealed no leukocytosis, no anemia, glucose of 100. BNP noted to be 248 and a troponin 9 out of 10. EKG did reveal sinus bradycardia with a rate of 58 bpm without any presence of ischemic findings at that time. The chest x-ray was overall unremarkable, he was seen by cardiology, stress testing, stress echocardiogram was ordered both tests ordered were unremarkable. The patient educated that he needs to follow with cardiology at this time to further review symptoms. #Last cardiology note: Cardiology note from 05/19/2024 states that implantable loop recorder was monitored remotely with overall very low burden of atrial fibrillation. In March 2024, patient developed persistent atrial fibrillation, and did have a cardioversion at that time. #Echocardiogram: Exercise stress echocardiogram demonstrated no echocardiographic evidence of exercise-induced myocardial ischemia. This was compared to the prior study made in April 13, 2014. #Chest x-ray: Overall impression was no definite acute cardiopulmonary disease shown #EKG: On 07/14/2024 demonstrated sinus bradycardia with left axis deviation, no significant change when compared to EKG of April 2024. #Atrial fibrillation: Patient is currently taking Xarelto 20 mg tablets, metoprolol 25 mg tablets follow-up with cardiology. #Atrial fibrillation monitored via implantable loop recorder: Patient states that he has an electrophysiology appointment scheduled for Sunday to ensure the implantable loop recorder is working efficiently. #Leg edema: Patient does have 1+ bilateral pitting edema, he is inquiring about Lasix at this time. The patient would not benefit from Lasix as his blood pressure is 104/56, he is to call his futures trader to discuss this further. The patient admits to the futures trader and previous providers have not prescribed Lasix in the past, therefore I am uncomfortable doing this at this time. #Lightheadedness: Patient would benefit from a bilateral carotid ultrasound, order placed today. Differential at this time includes carotid artery stenosis, atherosclerosis of cartoid arteries. #Hypertension: Patient and I discussed blood pressure management, he is to touch based with his futures trader as they monitor his blood pressure medication. The patient is currently taking lisinopril 5 mg tablets, however patient's blood pressure in office today is 104/56, which has been the lowest reading thus far. Previous readings in [facility] have been around 140 systolic. #Hyperlipidemia: Continue atorvastatin 40 mg tablets. Patient does have standing order for cardio IQ, we will review the results when they are ready All questions have been answered to patient's satisfaction. Patient verbalized understanding of diagnosis and treatments explained. Advised to call sooner prior to next visit it any questions/concerns arise. Case discussed with Ángela PALMA who reviewed the assessment and plan. Chart, medications, labs, vital signs reviewed. Dictation was accomplished with the use of [employer] voice recognition software, which is prone to medical misidentifications and grammatical errors. This are unintentional and the practitioner does try to identify and correct these, but some could still be present. Please do not hesitate to contact practitioner for clarification. 07/18/2024 Coronary artery disease involving douglas coronary artery of douglas heart without angina pectoris (ICD-10 - I25.10) Romeo is a pleasant 69-year-old male with a past medical history of hypertension, atrial fibrillation, hyperlipidemia, BPH, osteoarthritis, coronary artery disease, remote anterior wall DC status post PCI to the LAD with in-stent restenosis status post PCI, A-fib monitored via implantable loop recorder status post cardioversion and ablation 05/23/2024 presents to the office today for follow-up in regards to a hospital visit. #Hospital course:The patient presented to [facility] on 07/14 for a chief complaint of chest pain, and chest tightness. Upon arrival the patient was mildly hypertensive with blood pressure systolically 140, he was afebrile and was maintaining a 99% room air. Laboratory evaluation revealed no leukocytosis, no anemia, glucose of 100. BNP noted to be 248 and a troponin 9 out of 10. EKG did reveal sinus bradycardia with a rate of 58 bpm without any presence of ischemic findings at that time. The chest x-ray was overall unremarkable, he was seen by cardiology, stress testing, stress echocardiogram was ordered both tests ordered were unremarkable. The patient educated that he needs to follow with cardiology at this time to further review symptoms. #Last cardiology note: Cardiology note from 05/19/2024 states that implantable loop recorder was monitored remotely with overall very low burden of atrial fibrillation. In March 2024, patient developed persistent atrial fibrillation, and did have a cardioversion at that time. #Echocardiogram: Exercise stress echocardiogram demonstrated no echocardiographic evidence of exercise-induced myocardial ischemia. This was compared to the prior study made in April 13, 2014. #Chest x-ray: Overall impression was no definite acute cardiopulmonary disease shown #EKG: On 07/14/2024 demonstrated sinus bradycardia with left axis deviation, no significant change when compared to EKG of April 2024. #Atrial fibrillation: Patient is currently taking Xarelto 20 mg tablets, metoprolol 25 mg tablets follow-up with cardiology. #Atrial fibrillation monitored via implantable loop recorder: Patient states that he has an electrophysiology appointment scheduled for Sunday to ensure the implantable loop recorder is working efficiently. #Leg edema: Patient does have 1+ bilateral pitting edema, he is inquiring about Lasix at this time. The patient would not benefit from Lasix as his blood pressure is 104/56, he is to call his futures trader to discuss this further. The patient admits to the futures trader and previous providers have not prescribed Lasix in the past, therefore I am uncomfortable doing this at this time. #Lightheadedness: Patient would benefit from a bilateral carotid ultrasound, order placed today. Differential at this time includes carotid artery stenosis, atherosclerosis of cartoid arteries. #Hypertension: Patient and I discussed blood pressure management, he is to touch based with his futures trader as they monitor his blood pressure medication. The patient is currently taking lisinopril 5 mg tablets, however patient's blood pressure in office today is 104/56, which has been the lowest reading thus far. Previous readings in [facility] have been around 140 systolic. #Hyperlipidemia: Continue atorvastatin 40 mg tablets. Patient does have standing order for cardio IQ, we will review the results when they are ready All questions have been answered to patient's satisfaction. Patient verbalized understanding of diagnosis and treatments explained. Advised to call sooner prior to next visit it any questions/concerns arise. Case discussed with Ángela PALMA who reviewed the assessment and plan. Chart, medications, labs, vital signs reviewed. Dictation was accomplished with the use of [employer] voice recognition software, which is prone to medical misidentifications and grammatical errors. This are unintentional and the practitioner does try to identify and correct these, but some could still be present. Please do not hesitate to contact practitioner for clarification. 08/06/2024 Essential (primary) hypertension (ICD-10 - I10) Romeo is a pleasant 69-year-old male present today for hospital follow-up. 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 #Of note patient was previously seen at [facility] from 07/14 - 07/15 for lightheadedness, tightness in chest and swollen ankles with full cardiac workup which was unremarkable. Patient followed by cardiology. Patient was seen in office for hospital follow-up following this discharge in which carotid ultrasound as well as bloodwork was ordered. Carotid ultrasound not obtained. Blood work obtained, but patient reports [facility] had technical difficulties with diagnosis codes and was unable to process blood work. Search [employer] with no success in finding blood work results. # Patient seen in the ER on 08/03/2023 and discharged without hospitalization. Patient presented to the ER reporting chest pain. This being the second ER presentation since June. Patient reported using Imdur for the first time after experiencing the chest pain which has been intermittent for the past few weeks. Due to taking Imdur, patient developed worsening of chest pain as well as abdominal pain and cramping. In the ER labs ordered including troponins, EKG, chest x-ray, CTA chest, abdomen pelvis were all ordered and unremarkable. In the ER, patient trialed nitroglycerin as well as aspirin 324 mg for possible ACS. Chest pain improved with nitroglycerin. Lab work including CBC, CMP and bedside aortic ultrasound was ordered which revealed aorta within normal limits is 2 cm. Bedside cardiac ultrasound unremarkable. EKG showed sinus bradycardia at a rate of 54, left axis deviation, no acute ST changes. After negative for gout patient was offered admission for telemetry for further cardiac workup however patient is daughter preferred to be discharged home with follow-up with cardiology outpatient. Patient scheduled to see [facility] cardiology for this 08/09/2024. # Patient today reports he believes chest pain may be anxiety induced. States he experiences the chest pain at night while laying in bed as well as when watching intense football games. Patient otherwise asymptomatic, but given episode of abdominal cramping and severe abdominal pain after taking Imdur, patient could benefit from further GI workup in addition to cardiology follow-up. Plan to refer patient to [facility] for possible GI workup to determine why been taking Imdur because severe pain as opposed to nitroglycerin relieving symptoms. # Discussed with patient to continue using nitroglycerin as needed for mild, intermittent chest pain. Discussed ER protocol. Discussed emergency care if patient experiences severe chest pain or shortness of breath lasting longer than 10 minutes or not relieved with the use of nitroglycerin. # Advised patient to follow through with carotid ultrasound bilaterally and follow-up in office in August. #A-fib: Followed by cardiology. Implantable loop recorder status post cardioversion and ablation 05/23/2024. Patient has [employer] Watch, which will alert regarding any arrhythmias detected. States he has not had any arrhythmias detected. Denies any palpitations or shortness of breath. Patient is currently taking Xarelto 20 mg po once daily. # Hypertension: Blood pressure stable today. Plan to continue lisinopril 5 mg po once daily. # Hyperlipidemia: plan to continue atorvastatin 40 mg po once daily. All questions answered to patients satisfaction. Patient verbalized understanding of diagnosis and treatments explained. To call sooner prior to next visit it any questions/concerns arise. Case discussed with collaborating physician Dr. King who reviewed the assessment and plan. Chart, medications, labs, vital signs reviewed. Dictation was accomplished with the use of [employer] voice recognition software, prone to medical misidentifications and grammatical errors. This is unintentional and the practitioner does try to identify and correct these, but some could still be present. Please do not hesitate to contact practitioner for clarification. 08/06/2024 Intermittent chest pain (ICD-10 - R07.9) Romeo is a pleasant 69-year-old male present today for hospital follow-up. 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 #Of note patient was previously seen at [facility] from 07/14 - 07/15 for lightheadedness, tightness in chest and swollen ankles with full cardiac workup which was unremarkable. Patient followed by cardiology. Patient was seen in office for hospital follow-up following this discharge in which carotid ultrasound as well as bloodwork was ordered. Carotid ultrasound not obtained. Blood work obtained, but patient reports [facility] had technical difficulties with diagnosis codes and was unable to process blood work. Search [employer] with no success in finding blood work results. # Patient seen in the ER on 08/03/2023 and discharged without hospitalization. Patient presented to the ER reporting chest pain. This being the second ER presentation since June. Patient reported using Imdur for the first time after experiencing the chest pain which has been intermittent for the past few weeks. Due to taking Imdur, patient developed worsening of chest pain as well as abdominal pain and cramping. In the ER labs ordered including troponins, EKG, chest x-ray, CTA chest, abdomen pelvis were all ordered and unremarkable. In the ER, patient trialed nitroglycerin as well as aspirin 324 mg for possible ACS. Chest pain improved with nitroglycerin. Lab work including CBC, CMP and bedside aortic ultrasound was ordered which revealed aorta within normal limits is 2 cm. Bedside cardiac ultrasound unremarkable. EKG showed sinus bradycardia at a rate of 54, left axis deviation, no acute ST changes. After negative for gout patient was offered admission for telemetry for further cardiac workup however patient is daughter preferred to be discharged home with follow-up with cardiology outpatient. Patient scheduled to see [facility] cardiology for this 08/09/2024. # Patient today reports he believes chest pain may be anxiety induced. States he experiences the chest pain at night while laying in bed as well as when watching intense football games. Patient otherwise asymptomatic, but given episode of abdominal cramping and severe abdominal pain after taking Imdur, patient could benefit from further GI workup in addition to cardiology follow-up. Plan to refer patient to Dr. Hammond, GI for possible GI workup to determine why been taking Imdur because severe pain as opposed to nitroglycerin relieving symptoms. # Discussed with patient to continue using nitroglycerin as needed for mild, intermittent chest pain. Discussed ER protocol. Discussed emergency care if patient experiences severe chest pain or shortness of breath lasting longer than 10 minutes or not relieved with the use of nitroglycerin. # Advised patient to follow through with carotid ultrasound bilaterally and follow-up in office in August. #A-fib: Followed by cardiology. Implantable loop recorder status post cardioversion and ablation 05/23/2024. Patient has [employer] Watch, which will alert regarding any arrhythmias detected. States he has not had any arrhythmias detected. Denies any palpitations or shortness of breath. Patient is currently taking Xarelto 20 mg po once daily. # Hypertension: Blood pressure stable today. Plan to continue lisinopril 5 mg po once daily. # Hyperlipidemia: plan to continue atorvastatin 40 mg po once daily. All questions answered to patients satisfaction. Patient verbalized understanding of diagnosis and treatments explained. To call sooner prior to next visit it any questions/concerns arise. Case discussed with collaborating physician Dr. King who reviewed the assessment and plan. Chart, medications, labs, vital signs reviewed. Dictation was accomplished with the use of [employer] voice recognition software, prone to medical misidentifications and grammatical errors. This is unintentional and the practitioner does try to identify and correct these, but some could still be present. Please do not hesitate to contact practitioner for clarification. 10/24/2023 Benign essential hypertension (ICD-10 - I10) Patient is retired, lives at home with his , has 3 daughters and 5 grandkids. #Coronary artery disease status post stent placement in 2020, reports recent echocardiogram that upcoming appointment with cardiology. #Atrial fibrillation diagnosed in 2019, currently on Xarelto. #Hypertension/hyperl ipidemia in the setting of coronary artery disease schedule for follow-up with blood work/physical. 08/06/2024 Coronary artery disease, unspecified vessel or lesion type, unspecified whether angina present, unspecified whether douglas or transplanted heart (ICD-10 - I25.10) Romeo is a pleasant 69-year-old male present today for hospital follow-up. 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 #Of note patient was previously seen at [facility] from 07/14 - 07/15 for lightheadedness, tightness in chest and swollen ankles with full cardiac workup which was unremarkable. Patient followed by cardiology. Patient was seen in office for hospital follow-up following this discharge in which carotid ultrasound as well as bloodwork was ordered. Carotid ultrasound not obtained. Blood work obtained, but patient reports [facility] had technical difficulties with diagnosis codes and was unable to process blood work. Search [employer] with no success in finding blood work results. # Patient seen in the ER on 08/03/2023 and discharged without hospitalization. Patient presented to the ER reporting chest pain. This being the second ER presentation since June. Patient reported using Imdur for the first time after experiencing the chest pain which has been intermittent for the past few weeks. Due to taking Imdur, patient developed worsening of chest pain as well as abdominal pain and cramping. In the ER labs ordered including troponins, EKG, chest x-ray, CTA chest, abdomen pelvis were all ordered and unremarkable. In the ER, patient trialed nitroglycerin as well as aspirin 324 mg for possible ACS. Chest pain improved with nitroglycerin. Lab work including CBC, CMP and bedside aortic ultrasound was ordered which revealed aorta within normal limits is 2 cm. Bedside cardiac ultrasound unremarkable. EKG showed sinus bradycardia at a rate of 54, left axis deviation, no acute ST changes. After negative for gout patient was offered admission for telemetry for further cardiac workup however patient is daughter preferred to be discharged home with follow-up with cardiology outpatient. Patient scheduled to see [facility] cardiology for this 08/09/2024. # Patient today reports he believes chest pain may be anxiety induced. States he experiences the chest pain at night while laying in bed as well as when watching intense football games. Patient otherwise asymptomatic, but given episode of abdominal cramping and severe abdominal pain after taking Imdur, patient could benefit from further GI workup in addition to cardiology follow-up. Plan to refer patient to [facility] for possible GI workup to determine why been taking Imdur because severe pain as opposed to nitroglycerin relieving symptoms. # Discussed with patient to continue using nitroglycerin as needed for mild, intermittent chest pain. Discussed ER protocol. Discussed emergency care if patient experiences severe chest pain or shortness of breath lasting longer than 10 minutes or not relieved with the use of nitroglycerin. # Advised patient to follow through with carotid ultrasound bilaterally and follow-up in office in August. #A-fib: Followed by cardiology. Implantable loop recorder status post cardioversion and ablation 05/23/2024. Patient has [employer] Watch, which will alert regarding any arrhythmias detected. States he has not had any arrhythmias detected. Denies any palpitations or shortness of breath. Patient is currently taking Xarelto 20 mg po once daily. # Hypertension: Blood pressure stable today. Plan to continue lisinopril 5 mg po once daily. # Hyperlipidemia: plan to continue atorvastatin 40 mg po once daily. All questions answered to patients satisfaction. Patient verbalized understanding of diagnosis and treatments explained. To call sooner prior to next visit it any questions/concerns arise. Case discussed with collaborating physician Dr. King who reviewed the assessment and plan. Chart, medications, labs, vital signs reviewed. Dictation was accomplished with the use of [employer] voice recognition software, prone to medical misidentifications and grammatical errors. This is unintentional and the practitioner does try to identify and correct these, but some could still be present. Please do not hesitate to contact practitioner for clarification. 07/18/2024 Atrial fibrillation (ICD-10 - I48.91) Romeo is a pleasant 69-year-old male with a past medical history of hypertension, atrial fibrillation, hyperlipidemia, BPH, osteoarthritis, coronary artery disease, remote anterior wall DC status post PCI to the LAD with in-stent restenosis status post PCI, A-fib monitored via implantable loop recorder status post cardioversion and ablation 05/23/2024 presents to the office today for follow-up in regards to a hospital visit. #Hospital course:The patient presented to [facility] on 07/14 for a chief complaint of chest pain, and chest tightness. Upon arrival the patient was mildly hypertensive with blood pressure systolically 140, he was afebrile and was maintaining a 99% room air. Laboratory evaluation revealed no leukocytosis, no anemia, glucose of 100. BNP noted to be 248 and a troponin 9 out of 10. EKG did reveal sinus bradycardia with a rate of 58 bpm without any presence of ischemic findings at that time. The chest x-ray was overall unremarkable, he was seen by cardiology, stress testing, stress echocardiogram was ordered both tests ordered were unremarkable. The patient educated that he needs to follow with cardiology at this time to further review symptoms. #Last cardiology note: Cardiology note from 05/19/2024 states that implantable loop recorder was monitored remotely with overall very low burden of atrial fibrillation. In March 2024, patient developed persistent atrial fibrillation, and did have a cardioversion at that time. #Echocardiogram: Exercise stress echocardiogram demonstrated no echocardiographic evidence of exercise-induced myocardial ischemia. This was compared to the prior study made in April 13, 2014. #Chest x-ray: Overall impression was no definite acute cardiopulmonary disease shown #EKG: On 07/14/2024 demonstrated sinus bradycardia with left axis deviation, no significant change when compared to EKG of April 2024. #Atrial fibrillation: Patient is currently taking Xarelto 20 mg tablets, metoprolol 25 mg tablets follow-up with cardiology. #Atrial fibrillation monitored via implantable loop recorder: Patient states that he has an electrophysiology appointment scheduled for Sunday to ensure the implantable loop recorder is working efficiently. #Leg edema: Patient does have 1+ bilateral pitting edema, he is inquiring about Lasix at this time. The patient would not benefit from Lasix as his blood pressure is 104/56, he is to call his futures trader to discuss this further. The patient admits to the futures trader and previous providers have not prescribed Lasix in the past, therefore I am uncomfortable doing this at this time. #Lightheadedness: Patient would benefit from a bilateral carotid ultrasound, order placed today. Differential at this time includes carotid artery stenosis, atherosclerosis of cartoid arteries. #Hypertension: Patient and I discussed blood pressure management, he is to touch based with his futures trader as they monitor his blood pressure medication. The patient is currently taking lisinopril 5 mg tablets, however patient's blood pressure in office today is 104/56, which has been the lowest reading thus far. Previous readings in [facility] have been around 140 systolic. #Hyperlipidemia: Continue atorvastatin 40 mg tablets. Patient does have standing order for cardio IQ, we will review the results when they are ready All questions have been answered to patient's satisfaction. Patient verbalized understanding of diagnosis and treatments explained. Advised to call sooner prior to next visit it any questions/concerns arise. Case discussed with Ángela PALMA who reviewed the assessment and plan. Chart, medications, labs, vital signs reviewed. Dictation was accomplished with the use of [employer] voice recognition software, which is prone to medical misidentifications and grammatical errors. This are unintentional and the practitioner does try to identify and correct these, but some could still be present. Please do not hesitate to contact practitioner for clarification. 04/01/2024 Prediabetes (ICD-10 - R73.03) Patient is retired, lives at home with his , has 3 daughters and 5 grandkids. #Overweight: discuss body scan in detail, increased visceral adipose tissue and low muscle mass. We discussed lifestyle modifications in detail, pt is committed. we will followup in 3 months. #prediabetes: first time diagnosis in 03/2024: discussed life style #Coronary artery disease status post stent placement in 2020, reports recent echocardiogram that upcoming appointment with cardiology. #Atrial fibrillation diagnosed in 2019, currently on Xarelto. #Hypertension/hyperl ipidemia in the setting of coronary artery disease schedule for follow-up with blood work/physical. 11/23/2023 Chronic anticoagulation (ICD-10 - Z79.01) # R calf mass. Unclear. Less likely tick bite, as there is no entry point. Area is mobile and mildly tender without erythema. Soft tissue US will be added. Pt to call if there are any changes. Tylenol for pain # Chronic AC due to AFib. Avoid NSAIDS Case discussed with collaborating physician Misti King who reviewed the assessment and plan. Chart, medications, labs, vital signs reviewed. Dictation was accomplished with the use of [employer] voice recognition software, prone to medical misidentifications and grammatical errors. This is unintentional and the practitioner does try to identify and correct these, but some could still be present. Please do not hesitate to contact practitioner for clarification. All questions answered to patients satisfaction. Patient verbalized understanding of diagnosis and treatments explained. To call sooner prior to next visit it any questions/concerns arise. 10/24/2023 Hyperlipidemia, mixed (ICD-10 - E78.2) Patient is retired, lives at home with his , has 3 daughters and 5 grandkids. #Coronary artery disease status post stent placement in 2020, reports recent echocardiogram that upcoming appointment with cardiology. #Atrial fibrillation diagnosed in 2019, currently on Xarelto. #Hypertension/hyperl ipidemia in the setting of coronary artery disease schedule for follow-up with blood work/physical. 04/01/2024 BMI 26.0-26.9,adult (ICD-10 - Z68.26) Patient is retired, lives at home with his , has 3 daughters and 5 grandkids. #Overweight: discuss body scan in detail, increased visceral adipose tissue and low muscle mass. We discussed lifestyle modifications in detail, pt is committed. we will followup in 3 months. #prediabetes: first time diagnosis in 03/2024: discussed life style #Coronary artery disease status post stent placement in 2020, reports recent echocardiogram that upcoming appointment with cardiology. #Atrial fibrillation diagnosed in 2019, currently on Xarelto. #Hypertension/hyperl ipidemia in the setting of coronary artery disease schedule for follow-up with blood work/physical. 08/06/2024 Hyperlipidemia, mixed (ICD-10 - E78.2) Romeo is a pleasant 69-year-old male present today for hospital follow-up. 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 #Of note patient was previously seen at [facility] from 07/14 - 07/15 for lightheadedness, tightness in chest and swollen ankles with full cardiac workup which was unremarkable. Patient followed by cardiology. Patient was seen in office for hospital follow-up following this discharge in which carotid ultrasound as well as bloodwork was ordered. Carotid ultrasound not obtained. Blood work obtained, but patient reports [facility] had technical difficulties with diagnosis codes and was unable to process blood work. Search [employer] with no success in finding blood work results. # Patient seen in the ER on 08/03/2023 and discharged without hospitalization. Patient presented to the ER reporting chest pain. This being the second ER presentation since June. Patient reported using Imdur for the first time after experiencing the chest pain which has been intermittent for the past few weeks. Due to taking Imdur, patient developed worsening of chest pain as well as abdominal pain and cramping. In the ER labs ordered including troponins, EKG, chest x-ray, CTA chest, abdomen pelvis were all ordered and unremarkable. In the ER, patient trialed nitroglycerin as well as aspirin 324 mg for possible ACS. Chest pain improved with nitroglycerin. Lab work including CBC, CMP and bedside aortic ultrasound was ordered which revealed aorta within normal limits is 2 cm. Bedside cardiac ultrasound unremarkable. EKG showed sinus bradycardia at a rate of 54, left axis deviation, no acute ST changes. After negative for gout patient was offered admission for telemetry for further cardiac workup however patient is daughter preferred to be discharged home with follow-up with cardiology outpatient. Patient scheduled to see [facility] cardiology for this 08/09/2024. # Patient today reports he believes chest pain may be anxiety induced. States he experiences the chest pain at night while laying in bed as well as when watching intense football games. Patient otherwise asymptomatic, but given episode of abdominal cramping and severe abdominal pain after taking Imdur, patient could benefit from further GI workup in addition to cardiology follow-up. Plan to refer patient to [facility] for possible GI workup to determine why been taking Imdur because severe pain as opposed to nitroglycerin relieving symptoms. # Discussed with patient to continue using nitroglycerin as needed for mild, intermittent chest pain. Discussed ER protocol. Discussed emergency care if patient experiences severe chest pain or shortness of breath lasting longer than 10 minutes or not relieved with the use of nitroglycerin. # Advised patient to follow through with carotid ultrasound bilaterally and follow-up in office in August. #A-fib: Followed by cardiology. Implantable loop recorder status post cardioversion and ablation 05/23/2024. Patient has [employer], which will alert regarding any arrhythmias detected. States he has not had any arrhythmias detected. Denies any palpitations or shortness of breath. Patient is currently taking Xarelto 20 mg po once daily. # Hypertension: Blood pressure stable today. Plan to continue lisinopril 5 mg po once daily. # Hyperlipidemia: plan to continue atorvastatin 40 mg po once daily. All questions answered to patients satisfaction. Patient verbalized understanding of diagnosis and treatments explained. To call sooner prior to next visit it any questions/concerns arise. Case discussed with collaborating physician Dr. King who reviewed the assessment and plan. Chart, medications, labs, vital signs reviewed. Dictation was accomplished with the use of [employer] voice recognition software, prone to medical misidentifications and grammatical errors. This is unintentional and the practitioner does try to identify and correct these, but some could still be present. Please do not hesitate to contact practitioner for clarification. 07/18/2024 Hyperlipidemia, mixed (ICD-10 - E78.2) Romeo is a pleasant 69-year-old male with a past medical history of hypertension, atrial fibrillation, hyperlipidemia, BPH, osteoarthritis, coronary artery disease, remote anterior wall DC status post PCI to the LAD with in-stent restenosis status post PCI, A-fib monitored via implantable loop recorder status post cardioversion and ablation 05/23/2024 presents to the office today for follow-up in regards to a hospital visit. #Hospital course:The patient presented to [facility] on 07/14 for a chief complaint of chest pain, and chest tightness. Upon arrival the patient was mildly hypertensive with blood pressure systolically 140, he was afebrile and was maintaining a 99% room air. Laboratory evaluation revealed no leukocytosis, no anemia, glucose of 100. BNP noted to be 248 and a troponin 9 out of 10. EKG did reveal sinus bradycardia with a rate of 58 bpm without any presence of ischemic findings at that time. The chest x-ray was overall unremarkable, he was seen by cardiology, stress testing, stress echocardiogram was ordered both tests ordered were unremarkable. The patient educated that he needs to follow with cardiology at this time to further review symptoms. #Last cardiology note: Cardiology note from 05/19/2024 states that implantable loop recorder was monitored remotely with overall very low burden of atrial fibrillation. In March 2024, patient developed persistent atrial fibrillation, and did have a cardioversion at that time. #Echocardiogram: Exercise stress echocardiogram demonstrated no echocardiographic evidence of exercise-induced myocardial ischemia. This was compared to the prior study made in April 13, 2014. #Chest x-ray: Overall impression was no definite acute cardiopulmonary disease shown #EKG: On 07/14/2024 demonstrated sinus bradycardia with left axis deviation, no significant change when compared to EKG of April 2024. #Atrial fibrillation: Patient is currently taking Xarelto 20 mg tablets, metoprolol 25 mg tablets follow-up with cardiology. #Atrial fibrillation monitored via implantable loop recorder: Patient states that he has an electrophysiology appointment scheduled for Sunday to ensure the implantable loop recorder is working efficiently. #Leg edema: Patient does have 1+ bilateral pitting edema, he is inquiring about Lasix at this time. The patient would not benefit from Lasix as his blood pressure is 104/56, he is to call his futures trader to discuss this further. The patient admits to the futures trader and previous providers have not prescribed Lasix in the past, therefore I am uncomfortable doing this at this time. #Lightheadedness: Patient would benefit from a bilateral carotid ultrasound, order placed today. Differential at this time includes carotid artery stenosis, atherosclerosis of cartoid arteries. #Hypertension: Patient and I discussed blood pressure management, he is to touch based with his futures trader as they monitor his blood pressure medication. The patient is currently taking lisinopril 5 mg tablets, however patient's blood pressure in office today is 104/56, which has been the lowest reading thus far. Previous readings in [facility] have been around 140 systolic. #Hyperlipidemia: Continue atorvastatin 40 mg tablets. Patient does have standing order for cardio IQ, we will review the results when they are ready All questions have been answered to patient's satisfaction. Patient verbalized understanding of diagnosis and treatments explained. Advised to call sooner prior to next visit it any questions/concerns arise. Case discussed with Ángela PALMA who reviewed the assessment and plan. Chart, medications, labs, vital signs reviewed. Dictation was accomplished with the use of [employer] voice recognition software, which is prone to medical misidentifications and grammatical errors. This are unintentional and the practitioner does try to identify and correct these, but some could still be present. Please do not hesitate to contact practitioner for clarification. 08/06/2024 Chronic anticoagulation (ICD-10 - Z79.01) Romeo is a pleasant 69-year-old male present today for hospital follow-up. 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 #Of note patient was previously seen at [facility] from 07/14 - 07/15 for lightheadedness, tightness in chest and swollen ankles with full cardiac workup which was unremarkable. Patient followed by cardiology. Patient was seen in office for hospital follow-up following this discharge in which carotid ultrasound as well as bloodwork was ordered. Carotid ultrasound not obtained. Blood work obtained, but patient reports [facility] had technical difficulties with diagnosis codes and was unable to process blood work. Search [employer] with no success in finding blood work results. # Patient seen in the ER on 08/03/2023 and discharged without hospitalization. Patient presented to the ER reporting chest pain. This being the second ER presentation since June. Patient reported using Imdur for the first time after experiencing the chest pain which has been intermittent for the past few weeks. Due to taking Imdur, patient developed worsening of chest pain as well as abdominal pain and cramping. In the ER labs ordered including troponins, EKG, chest x-ray, CTA chest, abdomen pelvis were all ordered and unremarkable. In the ER, patient trialed nitroglycerin as well as aspirin 324 mg for possible ACS. Chest pain improved with nitroglycerin. Lab work including CBC, CMP and bedside aortic ultrasound was ordered which revealed aorta within normal limits is 2 cm. Bedside cardiac ultrasound unremarkable. EKG showed sinus bradycardia at a rate of 54, left axis deviation, no acute ST changes. After negative for gout patient was offered admission for telemetry for further cardiac workup however patient is daughter preferred to be discharged home with follow-up with cardiology outpatient. Patient scheduled to see [facility] cardiology for this 08/09/2024. # Patient today reports he believes chest pain may be anxiety induced. States he experiences the chest pain at night while laying in bed as well as when watching intense football games. Patient otherwise asymptomatic, but given episode of abdominal cramping and severe abdominal pain after taking Imdur, patient could benefit from further GI workup in addition to cardiology follow-up. Plan to refer patient to Dr. [facility] for possible GI workup to determine why been taking Imdur because severe pain as opposed to nitroglycerin relieving symptoms. # Discussed with patient to continue using nitroglycerin as needed for mild, intermittent chest pain. Discussed ER protocol. Discussed emergency care if patient experiences severe chest pain or shortness of breath lasting longer than 10 minutes or not relieved with the use of nitroglycerin. # Advised patient to follow through with carotid ultrasound bilaterally and follow-up in office in August. #A-fib: Followed by cardiology. Implantable loop recorder status post cardioversion and ablation 05/23/2024. Patient has [employer], which will alert regarding any arrhythmias detected. States he has not had any arrhythmias detected. Denies any palpitations or shortness of breath. Patient is currently taking Xarelto 20 mg po once daily. # Hypertension: Blood pressure stable today. Plan to continue lisinopril 5 mg po once daily. # Hyperlipidemia: plan to continue atorvastatin 40 mg po once daily. All questions answered to patients satisfaction. Patient verbalized understanding of diagnosis and treatments explained. To call sooner prior to next visit it any questions/concerns arise. Case discussed with collaborating physician Dr. King who reviewed the assessment and plan. Chart, medications, labs, vital signs reviewed. Dictation was accomplished with the use of [employer] voice recognition software, prone to medical misidentifications and grammatical errors. This is unintentional and the practitioner does try to identify and correct these, but some could still be present. Please do not hesitate to contact practitioner for clarification. 04/01/2024 Hyperlipidemia, mixed (ICD-10 - E78.2) Patient is retired, lives at home with his , has 3 daughters and 5 grandkids. #Overweight: discuss body scan in detail, increased visceral adipose tissue and low muscle mass. We discussed lifestyle modifications in detail, pt is committed. we will followup in 3 months. #prediabetes: first time diagnosis in 03/2024: discussed life style #Coronary artery disease status post stent placement in 2020, reports recent echocardiogram that upcoming appointment with cardiology. #Atrial fibrillation diagnosed in 2019, currently on Xarelto. #Hypertension/hyperl ipidemia in the setting of coronary artery disease schedule for follow-up with blood work/physical. 07/18/2024 Chronic anticoagulation (ICD-10 - Z79.01) Romeo is a pleasant 69-year-old male with a past medical history of hypertension, atrial fibrillation, hyperlipidemia, BPH, osteoarthritis, coronary artery disease, remote anterior wall DC status post PCI to the LAD with in-stent restenosis status post PCI, A-fib monitored via implantable loop recorder status post cardioversion and ablation 05/23/2024 presents to the office today for follow-up in regards to a hospital visit. #Hospital course:The patient presented to [facility] on 07/14 for a chief complaint of chest pain, and chest tightness. Upon arrival the patient was mildly hypertensive with blood pressure systolically 140, he was afebrile and was maintaining a 99% room air. Laboratory evaluation revealed no leukocytosis, no anemia, glucose of 100. BNP noted to be 248 and a troponin 9 out of 10. EKG did reveal sinus bradycardia with a rate of 58 bpm without any presence of ischemic findings at that time. The chest x-ray was overall unremarkable, he was seen by cardiology, stress testing, stress echocardiogram was ordered both tests ordered were unremarkable. The patient educated that he needs to follow with cardiology at this time to further review symptoms. #Last cardiology note: Cardiology note from 05/19/2024 states that implantable loop recorder was monitored remotely with overall very low burden of atrial fibrillation. In March 2024, patient developed persistent atrial fibrillation, and did have a cardioversion at that time. #Echocardiogram: Exercise stress echocardiogram demonstrated no echocardiographic evidence of exercise-induced myocardial ischemia. This was compared to the prior study made in April 13, 2014. #Chest x-ray: Overall impression was no definite acute cardiopulmonary disease shown #EKG: On 07/14/2024 demonstrated sinus bradycardia with left axis deviation, no significant change when compared to EKG of April 2024. #Atrial fibrillation: Patient is currently taking Xarelto 20 mg tablets, metoprolol 25 mg tablets follow-up with cardiology. #Atrial fibrillation monitored via implantable loop recorder: Patient states that he has an electrophysiology appointment scheduled for Sunday to ensure the implantable loop recorder is working efficiently. #Leg edema: Patient does have 1+ bilateral pitting edema, he is inquiring about Lasix at this time. The patient would not benefit from Lasix as his blood pressure is 104/56, he is to call his futures trader to discuss this further. The patient admits to the futures trader and previous providers have not prescribed Lasix in the past, therefore I am uncomfortable doing this at this time. #Lightheadedness: Patient would benefit from a bilateral carotid ultrasound, order placed today. Differential at this time includes carotid artery stenosis, atherosclerosis of cartoid arteries. #Hypertension: Patient and I discussed blood pressure management, he is to touch based with his futures trader as they monitor his blood pressure medication. The patient is currently taking lisinopril 5 mg tablets, however patient's blood pressure in office today is 104/56, which has been the lowest reading thus far. Previous readings in [facility] have been around 140 systolic. #Hyperlipidemia: Continue atorvastatin 40 mg tablets. Patient does have standing order for cardio IQ, we will review the results when they are ready All questions have been answered to patient's satisfaction. Patient verbalized understanding of diagnosis and treatments explained. Advised to call sooner prior to next visit it any questions/concerns arise. Case discussed with Ángela PALMA who reviewed the assessment and plan. Chart, medications, labs, vital signs reviewed. Dictation was accomplished with the use of [employer] voice recognition software, which is prone to medical misidentifications and grammatical errors. This are unintentional and the practitioner does try to identify and correct these, but some could still be present. Please do not hesitate to contact practitioner for clarification. 07/18/2024 Implantable loop recorder present (ICD-10 - Z95.818) Romeo is a pleasant 69-year-old male with a past medical history of hypertension, atrial fibrillation, hyperlipidemia, BPH, osteoarthritis, coronary artery disease, remote anterior wall DC status post PCI to the LAD with in-stent restenosis status post PCI, A-fib monitored via implantable loop recorder status post cardioversion and ablation 05/23/2024 presents to the office today for follow-up in regards to a hospital visit. #Hospital course:The patient presented to [facility] on 07/14 for a chief complaint of chest pain, and chest tightness. Upon arrival the patient was mildly hypertensive with blood pressure systolically 140, he was afebrile and was maintaining a 99% room air. Laboratory evaluation revealed no leukocytosis, no anemia, glucose of 100. BNP noted to be 248 and a troponin 9 out of 10. EKG did reveal sinus bradycardia with a rate of 58 bpm without any presence of ischemic findings at that time. The chest x-ray was overall unremarkable, he was seen by cardiology, stress testing, stress echocardiogram was ordered both tests ordered were unremarkable. The patient educated that he needs to follow with cardiology at this time to further review symptoms. #Last cardiology note: Cardiology note from 05/19/2024 states that implantable loop recorder was monitored remotely with overall very low burden of atrial fibrillation. In March 2024, patient developed persistent atrial fibrillation, and did have a cardioversion at that time. #Echocardiogram: Exercise stress echocardiogram demonstrated no echocardiographic evidence of exercise-induced myocardial ischemia. This was compared to the prior study made in April 13, 2014. #Chest x-ray: Overall impression was no definite acute cardiopulmonary disease shown #EKG: On 07/14/2024 demonstrated sinus bradycardia with left axis deviation, no significant change when compared to EKG of April 2024. #Atrial fibrillation: Patient is currently taking Xarelto 20 mg tablets, metoprolol 25 mg tablets follow-up with cardiology. #Atrial fibrillation monitored via implantable loop recorder: Patient states that he has an electrophysiology appointment scheduled for Sunday to ensure the implantable loop recorder is working efficiently. #Leg edema: Patient does have 1+ bilateral pitting edema, he is inquiring about Lasix at this time. The patient would not benefit from Lasix as his blood pressure is 104/56, he is to call his futures trader to discuss this further. The patient admits to the futures trader and previous providers have not prescribed Lasix in the past, therefore I am uncomfortable doing this at this time. #Lightheadedness: Patient would benefit from a bilateral carotid ultrasound, order placed today. Differential at this time includes carotid artery stenosis, atherosclerosis of cartoid arteries. #Hypertension: Patient and I discussed blood pressure management, he is to touch based with his futures trader as they monitor his blood pressure medication. The patient is currently taking lisinopril 5 mg tablets, however patient's blood pressure in office today is 104/56, which has been the lowest reading thus far. Previous readings in [facility] have been around 140 systolic. #Hyperlipidemia: Continue atorvastatin 40 mg tablets. Patient does have standing order for cardio IQ, we will review the results when they are ready All questions have been answered to patient's satisfaction. Patient verbalized understanding of diagnosis and treatments explained. Advised to call sooner prior to next visit it any questions/concerns arise. Case discussed with Ángela PALMA who reviewed the assessment and plan. Chart, medications, labs, vital signs reviewed. Dictation was accomplished with the use of [employer] voice recognition software, which is prone to medical misidentifications and grammatical errors. This are unintentional and the practitioner does try to identify and correct these, but some could still be present. Please do not hesitate to contact practitioner for clarification. 08/06/2024 Atrial fibrillation (ICD-10 - I48.91) Romeo is a pleasant 69-year-old male present today for hospital follow-up. 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 #Of note patient was previously seen at [facility] from 07/14 - 07/15 for lightheadedness, tightness in chest and swollen ankles with full cardiac workup which was unremarkable. Patient followed by cardiology. Patient was seen in office for hospital follow-up following this discharge in which carotid ultrasound as well as bloodwork was ordered. Carotid ultrasound not obtained. Blood work obtained, but patient reports [facility] had technical difficulties with diagnosis codes and was unable to process blood work. Search [employer] with no success in finding blood work results. # Patient seen in the ER on 08/03/2023 and discharged without hospitalization. Patient presented to the ER reporting chest pain. This being the second ER presentation since June. Patient reported using Imdur for the first time after experiencing the chest pain which has been intermittent for the past few weeks. Due to taking Imdur, patient developed worsening of chest pain as well as abdominal pain and cramping. In the ER labs ordered including troponins, EKG, chest x-ray, CTA chest, abdomen pelvis were all ordered and unremarkable. In the ER, patient trialed nitroglycerin as well as aspirin 324 mg for possible ACS. Chest pain improved with nitroglycerin. Lab work including CBC, CMP and bedside aortic ultrasound was ordered which revealed aorta within normal limits is 2 cm. Bedside cardiac ultrasound unremarkable. EKG showed sinus bradycardia at a rate of 54, left axis deviation, no acute ST changes. After negative for gout patient was offered admission for telemetry for further cardiac workup however patient is daughter preferred to be discharged home with follow-up with cardiology outpatient. Patient scheduled to see [facility] cardiology for this 08/09/2024. # Patient today reports he believes chest pain may be anxiety induced. States he experiences the chest pain at night while laying in bed as well as when watching intense football games. Patient otherwise asymptomatic, but given episode of abdominal cramping and severe abdominal pain after taking Imdur, patient could benefit from further GI workup in addition to cardiology follow-up. Plan to refer patient to Dr. Padmini, GI for possible GI workup to determine why been taking Imdur because severe pain as opposed to nitroglycerin relieving symptoms. # Discussed with patient to continue using nitroglycerin as needed for mild, intermittent chest pain. Discussed ER protocol. Discussed emergency care if patient experiences severe chest pain or shortness of breath lasting longer than 10 minutes or not relieved with the use of nitroglycerin. # Advised patient to follow through with carotid ultrasound bilaterally and follow-up in office in August. #A-fib: Followed by cardiology. Implantable loop recorder status post cardioversion and ablation 05/23/2024. Patient has [employer] Watch, which will alert regarding any arrhythmias detected. States he has not had any arrhythmias detected. Denies any palpitations or shortness of breath. Patient is currently taking Xarelto 20 mg po once daily. # Hypertension: Blood pressure stable today. Plan to continue lisinopril 5 mg po once daily. # Hyperlipidemia: plan to continue atorvastatin 40 mg po once daily. All questions answered to patients satisfaction. Patient verbalized understanding of diagnosis and treatments explained. To call sooner prior to next visit it any questions/concerns arise. Case discussed with collaborating physician Dr. King who reviewed the assessment and plan. Chart, medications, labs, vital signs reviewed. Dictation was accomplished with the use of [employer] voice recognition software, prone to medical misidentifications and grammatical errors. This is unintentional and the practitioner does try to identify and correct these, but some could still be present. Please do not hesitate to contact practitioner for clarification. 07/18/2024 Light headkaylynn (ICD-10 - R42) Romeo is a pleasant 69-year-old male with a past medical history of hypertension, atrial fibrillation, hyperlipidemia, BPH, osteoarthritis, coronary artery disease, remote anterior wall DC status post PCI to the LAD with in-stent restenosis status post PCI, A-fib monitored via implantable loop recorder status post cardioversion and ablation 05/23/2024 presents to the office today for follow-up in regards to a hospital visit. #Hospital course:The patient presented to [facility] on 07/14 for a chief complaint of chest pain, and chest tightness. Upon arrival the patient was mildly hypertensive with blood pressure systolically 140, he was afebrile and was maintaining a 99% room air. Laboratory evaluation revealed no leukocytosis, no anemia, glucose of 100. BNP noted to be 248 and a troponin 9 out of 10. EKG did reveal sinus bradycardia with a rate of 58 bpm without any presence of ischemic findings at that time. The chest x-ray was overall unremarkable, he was seen by cardiology, stress testing, stress echocardiogram was ordered both tests ordered were unremarkable. The patient educated that he needs to follow with cardiology at this time to further review symptoms. #Last cardiology note: Cardiology note from 05/19/2024 states that implantable loop recorder was monitored remotely with overall very low burden of atrial fibrillation. In March 2024, patient developed persistent atrial fibrillation, and did have a cardioversion at that time. #Echocardiogram: Exercise stress echocardiogram demonstrated no echocardiographic evidence of exercise-induced myocardial ischemia. This was compared to the prior study made in April 13, 2014. #Chest x-ray: Overall impression was no definite acute cardiopulmonary disease shown #EKG: On 07/14/2024 demonstrated sinus bradycardia with left axis deviation, no significant change when compared to EKG of April 2024. #Atrial fibrillation: Patient is currently taking Xarelto 20 mg tablets, metoprolol 25 mg tablets follow-up with cardiology. #Atrial fibrillation monitored via implantable loop recorder: Patient states that he has an electrophysiology appointment scheduled for Sunday to ensure the implantable loop recorder is working efficiently. #Leg edema: Patient does have 1+ bilateral pitting edema, he is inquiring about Lasix at this time. The patient would not benefit from Lasix as his blood pressure is 104/56, he is to call his futures trader to discuss this further. The patient admits to the futures trader and previous providers have not prescribed Lasix in the past, therefore I am uncomfortable doing this at this time. #Lightheadedness: Patient would benefit from a bilateral carotid ultrasound, order placed today. Differential at this time includes carotid artery stenosis, atherosclerosis of cartoid arteries. #Hypertension: Patient and I discussed blood pressure management, he is to touch based with his futures trader as they monitor his blood pressure medication. The patient is currently taking lisinopril 5 mg tablets, however patient's blood pressure in office today is 104/56, which has been the lowest reading thus far. Previous readings in [facility] have been around 140 systolic. #Hyperlipidemia: Continue atorvastatin 40 mg tablets. Patient does have standing order for cardio IQ, we will review the results when they are ready All questions have been answered to patient's satisfaction. Patient verbalized understanding of diagnosis and treatments explained. Advised to call sooner prior to next visit it any questions/concerns arise. Case discussed with Ángela PALMA who reviewed the assessment and plan. Chart, medications, labs, vital signs reviewed. Dictation was accomplished with the use of [employer] voice recognition software, which is prone to medical misidentifications and grammatical errors. This are unintentional and the practitioner does try to identify and correct these, but some could still be present. Please do not hesitate to contact practitioner for clarification. PLAN OF TREATMENT Pending Test Test Name Order Date Ultrasound : Carotid Doppler Bilateral 1 09/18/2023 Lower Extremity Ultrasound 11/23/2023 CARDIO IQ(R) GLUCOSE 07/09/2024 CARDIO IQ(R) TRIGLYCERIDES 07/09/2024 CARDIO IQ(R) CHOLESTEROL, TOTAL 07/09/20 24 CARDIO IQ(R) HDL CHOLESTEROL 07/09/2024 CARDIO IQ(R) LIPOPROTEIN (a) 07/09/2024 CARDIO IQ(R) HEMOGLOBIN A1c 07/09/2024 CARDIO IQ(R) INSULIN 07/09/2024 CARDIO IQ(R) VITAMIN D, 25-HYDROXY, LC/M S/MS 07/09/2024 CARDIO IQ(R) OMEGA 3 AND 6 FATTY ACIDS 1 09/09/2023 CARDIO IQ(R) DIRECT LDL 07/09/2024 Next Appt Details Provider Name:MULUGETA IDALMIS, 10:30:00 AM, [address], [place], [address], Provider Name:VALENTÍNLAKIA TRUONG, 10:45:00 AM, [address], [place], [address], Insurance Providers Payer Name Payer Address Payer Phone Subscriber Number Group Number Insured Name Patient Relationship to Insured Coverage Start Date Coverage End Date Medicare Part B J14 [address] jaelyn [place] [phone] [id number] Romeo Aranda Self - patient is the insured 9 MEDEX [address] [place] [address] [phone] [id number] Romeo Aranda Self - patient is the insured 9 MEDICAL (GENERAL) HISTORY Medical History History ICD Code Essential (primary) hypertension I10 Atrial fibrillation I48.91 Hyperlipidemia E78.5 BPH without urinary obstruction N40.0 Osteoarthritis M19.90 Coronary artery disease, uns pecified vessel or lesion type, unspecified whether angina present, unspecified whether douglas or transplanted heart I25.10 Melanoma in situ of other sites D03.8 Surgical History Surgery Date(Month/Year) Cholecystectomy Loop recorder Cardiac ablation [facility] Dr. Rebolledo Apr 2024 Hospitalization History Reason Date(Month/Year) Atrial fibrillation (Cardiology- Dr. Cui ty) 2022 Heart Attack (stent) 2000
--- OUTSIDE RECORDS SUMMARY | 2024-08-11 11:12 | XMS_ITS ---
Author Organization [facility] Address [address] [place] [address] Care Team Providers Care Pipe Blanks Cut Off Saw Operator Name Role Phone IZABELA GUERIN Unavailable [phone] REASON FOR VISIT refill MEDICATIONS Medication SIG (Take, Route, Frequency, Duration) Notes Start Date End Date Status Atorvastatin Calcium 40 MG 1 tablet Oral ly Once a day for 90 days Active Encounters Encounter Location Date Provider Diagnosis [facility] [address] [place] [address] 08/01/2024 IZABELA GUERIN PLAN OF TREATMENT Medication Medication Name Sig Start Date Stop Date Notes Atorvastatin Calcium 40 MG 1 tablet Oral ly Once a day for 90 days Next Appt Details Provider Name:MULUGETA RAYGOZA, 10:30:00 AM, [address] , [place], [address], Provider Name:VALENTÍNLAKIA TRUONG, 10:45:00 AM, [address], [place], [address], Progress Notes * Romeo ARANDADOB:1955 ( 69 yo M)Acc No.[id number]:08/01/2024 Patient:??Romeo ARANDA :1955?Age:69 Y?Sex:Sadie grant Address:[address] [place] [address] * Refills?? Refill Atorvastatin Calcium Tablet, 40 MG, Orally, 90 Tablet, 1 tablet, Once a day, 90 days, Refills=3 * true * Date:??
--- OUTSIDE RECORDS SUMMARY | 2024-08-11 11:12 | XMS_ITS | Patient Health Record ---
Author Organization [facility] Address [address] [place] [address] Care Team Providers Care Wool Hat Forming Machine Tender Name Role Phone Dorys Tenorio PA-C Primary Care Provider Jessica Beckett Danelle Unavailable [phone] Allergies No Known Allergies Reason For Referral No Information Medications Medication SIG (Take, Route, Frequency, Duration) Notes Start Date End Date Status Lisinopril 5 MG 1 tablet Orally Once a day for 30 day(s) Active Xarelto 20 MG 1 tablet with food O rally Once a day for 30 day(s) Active Ciclopirox Olamine 0.77 % 1 application Externally Twice a day for 30 days Active Atorvastatin Calcium 40 MG 1 tablet Oral ly Once a day for 30 day(s) Active Vitamin B12 Active Finasteride 5 MG 1 tablet Orally Once a day for 30 day(s) Active Aspirin 81 MG 1 tablet Orally Once a day for 30 day(s) Active Social History Tobacco Use: Social History Observation Description Date Details (start date - stop date) Former Smoker NA - NA Tobacco Use/Smoking Question Answer Notes Are you a: former smoker Additional Findings: Tobacco Non-User Current no n-smoker Alcohol Screen Question Answer Notes Did you have a drink contain ing alcohol in the past year? Yes How often did you have a dri nk containing alcohol in the past year? 2 to 4 times a month (2 points) Points 2 Interpretation Negative Tobacco use other than smoking: Question Answer Notes Are you an other tobacco user? No Plan Of Treatment No Information Insurance Providers Payer Name Payer Address Payer Phone Subscriber Number Group Number Insured Name Patient Relationship to Insured Coverage Start Date Coverage End Date Medicare National [employer] [address] [place] [address] [id number] Romeo Aranda Self - patient is the insured [employer] [address] [place] [address] [id number] Romeo Aranda Self - patient is the insured Medical (General) History Medical History History ICD Code Angina Arthritis Back,Hip,and Knee pain Broken bones Cholesterol Cancer covid-19 Diverticulosis Gall bladder problems Measles Mumps Chicken pox Surgical History Surgery Date(Month/Year) gall bladder surgery 2001 Stent surgery 2000
--- OUTSIDE RECORDS SUMMARY | 2024-08-11 11:12 | XMS_ITS ---
Author Organization [facility] Address [address] [place] [address] Care Team Providers Care Office Services Clerk Name Role Phone IZABELA GUERIN Unavailable [phone] REASON FOR VISIT ER f/u Encounters Encounter Location Date Provider Diagnosis [facility] [phone] [address] 08/04/2024 IZABELA GUERIN PLAN OF TREATMENT Next Appt Details Provider Name:MULUGETA RAYGOZA, 10:30:00 AM, [address], [place], [address], Provider Name:IZABELA GUERIN, 10:45:00 AM, [address], [facility] [place], [address], Progress Notes * Romeo ARANDADOB:1955 ( 69 yo M)Acc No.[id number]:08/04/2024 Patient:??Romeo ARANDA :1955?Age:69 Y?Sex:Sadie grant Address:[address] [place] [address] * true * Date:??
--- OUTSIDE RECORDS SUMMARY | 2024-08-11 11:12 | XMS_ITS ---
Author Organization [facility] Address [address] [facility] [place] [address] Care Team Providers Care Equipment Installer Name Role Phone IZABELA KING Unavailable [phone] SCOOTERKIMMIE Irvin Unavailable [phone] ALLERGIES Allergen (clinical drug ingredient) Drug/Non Drug Allergy documented on EMR Reaction Allergy Type Onset Date Status Bee Sting swelling Allergy Active REASON FOR VISIT pt here for ER f/u from [facility] MEDICATIONS Medication SIG (Take, Route, Frequency, Duration) Notes Start Date End Date Status Xarelto 20 MG 1 tablet with food O rally Once a day Active Atorvastatin Calcium 40 MG 1 tablet Oral ly Once a day for 90 days Active Lisinopril 5 MG 1 tablet Orally Once a day Active B12 5000 MCG as directed Sublingual Active Nitroglycerin 0.4 MG 1 tablet under [...] do you smoke? 31 or mo re Section Notes: pt retired. VITAL SIGNS Heart Rate 61 /min 08/06/2024 Blood pressure systolic 126 mm Hg 08/06/19 25 Blood pressure diastolic 78 mm Hg 025 Weight 186.8 lbs 08/06/2024 BMI 25.33 kg/m2 08/06/2024 Height 72 in 08/06/2024 Oximetry 97 % 08/06/2024 Encounters Encounter Location Date Provider Diagnosis [facility] [address] [place] [address] 08/06/2024 KIMMIE HELMS Essential (primary) hypertension I10 ; Intermittent chest pain R07.9 ; Coronary artery disease, unspecified vessel or lesion type, unspecified whether angina present, unspecified whether [place] or transplanted heart I25.10 ; Hyperlipidemia, mixed E78.2 ; Chronic anticoagulation Z79.01 and Atrial fibrillation I48.91 ASSESSMENTS Encounter Date Diagnosis Assessment Notes Treatment Notes Treatment Clinical Notes Section Notes 08/06/2024 Essential (primary) hypertension (ICD-10 - I10) Romeo is a pleasant 69-year-old male present today for hospital follow-up. Past medical history of hypertension, atrial fibrillation, hyperlipidemia, BPH, osteoarthritis, coronary artery disease, remote anterior wall TX status post PCI to the LAD with in-stent restenosis status post PCI, A-fib monitored via implantable loop recorder status post cardioversion and ablation 05/23/24, melanoma in situ. #Of note patient was previously seen at [facility] from 07/14 - 07/15 for lightheadedness, tightness [...] was unable to process blood work. Search [facility] with no success in finding blood work [...] with cardiology outpatient. Patient scheduled to see [facility] cardiology for this 08/09/2024. # Patient [...] post cardioversion and ablation 05/23/2024. Patient has Trusera, which will alert regarding any arrhythmias detected. [...] Dictation was accomplished with the use of [employer] voice recognition software, prone to medical misidentifications [...] osteoarthritis, coronary artery disease, remote anterior wall TX status post PCI to the LAD with in-stent restenosis status post PCI, A-fib monitored via implantable loop recorder status post cardioversion and ablation 05/23/24, melanoma in situ. #Of note patient was previously seen at [facility] from 07/14 - 07/15 for lightheadedness, tightness [...] was unable to process blood work. Search [facility] with no success in finding blood work [...] with cardiology outpatient. Patient scheduled to see [facility] cardiology for this 08/09/2024. # Patient [...] follow-up. Plan to refer patient to Dr. Washington, GI for possible GI workup to determine [...] Dictation was accomplished with the use of [employer] voice recognition software, prone to medical misidentifications and grammatical errors. This is unintentional and the practitioner does try to identify and correct these, but some could still be present. Please do not hesitate to contact practitioner for clarification. 08/06/2024 Coronary artery disease, unspecified vessel or lesion type, unspecified whether angina present, unspecified whether [place] or transplanted heart (ICD-10 - I25.10) Romeo is a pleasant 69-year-old male present today for hospital follow-up. Past medical history of hypertension, atrial fibrillation, hyperlipidemia, BPH, osteoarthritis, coronary artery disease, remote anterior wall TX status post PCI to the LAD with in-stent restenosis status post PCI, A-fib monitored via implantable loop recorder status post cardioversion and ablation 05/23/24, melanoma in situ. #Of note patient was previously seen at [facility] from 07/14 - 07/15 for lightheadedness, tightness [...] was unable to process blood work. Search [facility] with no success in finding blood work [...] with cardiology outpatient. Patient scheduled to see [facility] cardiology for this 08/09/2024. # Patient [...] post cardioversion and ablation 05/23/2024. Patient has Trusera, which will alert regarding any arrhythmias detected. [...] Dictation was accomplished with the use of [employer] voice recognition software, prone to medical misidentifications and grammatical errors. This is unintentional and the practitioner does try to identify and correct these, but some could still be present. Please do not hesitate to contact practitioner for clarification. 08/06/2024 Hyperlipidemia, mixed (ICD-10 - E78.2) Romeo is a pleasant 69-year-old male present today for hospital follow-up. Past medical history of hypertension, atrial fibrillation, hyperlipidemia, BPH, osteoarthritis, coronary artery disease, remote anterior wall TX status post PCI to the LAD with in-stent restenosis status post PCI, A-fib monitored via implantable loop recorder status post cardioversion and ablation 05/23/24, melanoma in situ. #Of note patient was previously seen at [facility] from 07/14 - 07/15 for lightheadedness, tightness in chest and swollen ankles with full cardiac workup which was unremarkable. Patient followed by cardiology. Patient was seen in office for hospital follow-up following this discharge in which carotid ultrasound as well as bloodwork was ordered. Carotid ultrasound not obtained. Blood work obtained, but patient reports [facility] had technical difficulties with diagnosis codes and was unable to process blood work. Search [facility] with no success in finding blood work [...] with cardiology outpatient. Patient scheduled to see [facility] cardiology for this 08/09/2024. # Patient [...] post cardioversion and ablation 05/23/2024. Patient has [employer] Watch, which will alert regarding any arrhythmias [...] Dictation was accomplished with the use of [employer] voice recognition software, prone to medical misidentifications [...] osteoarthritis, coronary artery disease, remote anterior wall TX status post PCI to the LAD with in-stent restenosis status post PCI, A-fib monitored via implantable loop recorder status post cardioversion and ablation 05/23/24, melanoma in situ. #Of note patient was previously seen at [facility] from 07/14 - 07/15 for lightheadedness, tightness [...] was unable to process blood work. Search [facility] with no success in finding blood work [...] with cardiology outpatient. Patient scheduled to see [facility] cardiology for this 08/09/2024. # Patient [...] Dictation was accomplished with the use of [employer] voice recognition software, prone to medical misidentifications [...] osteoarthritis, coronary artery disease, remote anterior wall TX status post PCI to the LAD with in-stent restenosis status post PCI, A-fib monitored via implantable loop recorder status post cardioversion and ablation 05/23/24, melanoma in situ. #Of note patient was previously seen at [facility] from 07/14 - 07/15 for lightheadedness, tightness [...] was unable to process blood work. Search [facility] with no success in finding blood work [...] with cardiology outpatient. Patient scheduled to see [facility] cardiology for this 08/09/2024. # Patient [...] follow-up. Plan to refer patient to Dr. Washington GI for possible GI workup to determine [...] Dictation was accomplished with the use of [employer] voice recognition software, prone to medical misidentifications and grammatical errors. This is unintentional and the practitioner does try to identify and correct these, but some could still be present. Please do not hesitate to contact practitioner for clarification. PLAN OF TREATMENT Next Appt Details Provider Name:MULUGETA RAYGOZA, 10:30:00 AM, [address], [place], [address], Provider Name:IZABELA KING, 10:45:00 AM, [address], [place], [address], Progress Notes * Romeo ARANDADOB:1955 ( 69 yo M)Acc No.[id number]:08/06/2024 Progress Note Patient:??Romeo ARANDA Provider:??KIMMIE HELMS PA-C :1955?Age:69 Y?Sex:Sadie grant Date:08/06/2024 Address:[address], [id number] Subjective: * Chief Complaints: * ?1. pt here for ER f/u from [facility]. * HPI: ?Constitutional:? Romeo is a pleasant 69-year-old male with a past medical history of hypertension, atrial fibrillation, hyperlipidemia, BPH, osteoarthritis, coronary artery disease, remote anterior wall TX status post PCI to the LAD with in-stent restenosis status post PCI, A-fib monitored via implantable loop recorder status post cardioversion and ablation 05/23/24, melanoma in situ who presents to the office today for ER follow up on 08/03/23. ?Patient was seen on 08/03/24 at [facility] ER reporting chest pain. Of note patient was previously seen at [facility] in [place] 07/14-07/15 for lightheadedness, tightness in chest and swollen ankles with workup including echocardiogram, chest x-ray and EKG which was unremarkable. Patient followed by cardiology. Bilateral carotid ultrasound ordered at last hospital follow-up, but this was not obtained by patient. Bloodwork also ordered, which patient states he received at [facility], but states they were not able to process order due to issue with diagnosis codes. No labs available through [facility]. ?08/03/23: Patient presented to the ER via EMS with chest pain experienced for a few weeks of chest pain, worse the night prior requiring the use of Imdur for the first time, he had been taking nitroglycerin at night with relief of chest pain. Patient also reported abdominal pain and cramping simultaneously to the chest pain. Labs ordered including troponins, EKG, chest x-ray, CTA chest, abdomen and pelvis. Patient was trialed on nitroglycerin and was provided aspirin 324 mg for possible ACS. Lab work also included CBC, CMP and a bedside aortic ultrasound was ordered which revealed aorta within normal limits of 2 cm. Bedside cardiac ultrasound showed normal EF, no pericardial effusion, no evidence of right heart strain, normal IVC. EKG showed sinus bradycardia at a rate of 54, left axis deviation, no acute ST changes. ?Patient's chest pain resolved with nitro and aspirin. Patient was offered admission for telemetry for further cardiac workup however patient and his daughter prefer to be discharged home with follow-up with cardiology outpatient. ?Patient has a long extensive cardiac history and followed by [facility] Cardiology with a stable management since April. Has follow up scheduled with cardiology for this 08/09/24. Last seen in June and evaluated with proper function of implantable loop recorder. With negative cardiac workup thus far in both hospital evaluations, patient notes that he may believe it could be anxiety related. States he experiences this chest pain at night while lying in bed as well as when watching intense football games. Reports normal bowel movements, no episodes of constipation or diarrhea. Denies shortness of breath, dyspnea on exertion, dizziness, lightheadedness, vision changes. Endorses heart burn at times for which he will use over the counter pepcid. Patient reports new recent use of CBD gummies to take at night, which he states has limited the episodes of night chest pain. * ROS:?All Other Systems:?Review of Systems (ROS)??All others negative except those mentioned in HPI.? * Medical History:??Essential (primary) hypertension, Atrial fibrillation, Hyperlipidemia, BPH without urinary obstruction, Osteoarthritis, Coronary artery disease, unspecified vessel or lesion type, unspecified whether angina present, unspecified whether [place] or transplanted heart, Melanoma in situ of other sites. * Surgical History:??Cholecyst ectomy , Loop recorder , Cardiac ablation [facility] Dr. Rebolledo Apr 2024. * Hospitalization/Major Diagno stic Procedure:??Heart Attack (stent) 2000, Atrial fibrillation (Cardiology- Dr. Ocampo) 2022. * Family History:??Father: dec eased 89 yrs.??Mother: 93 yrs.??Siblings: alive.??Children: alive.??2 sister(s) - healthy. .?? father(Heart failure) Mother(Dementia, Heart failure). * Social History:?Tobacco Use:??Tobacco Use/Smoking??Are you a??current smoker,??How often do you smoke cigarettes???every day,??How many cigarettes a day do you smoke???31 or more.?pt retired. * Medications:??Taking Nitrogl ycerin 0.4 MG Tablet Sublingual 1 tablet under the tongue and allow to dissolve as needed. Take every 5 minutes up to 3 times if chest pain persists Sublingual Three times a day , Taking B12 5000 MCG Tablet Sublingual as directed Sublingual , Taking Xarelto 20 MG Tablet 1 tablet with food Orally Once a day , Taking Lisinopril 5 MG Tablet 1 tablet Orally Once a day , Taking Atorvastatin Calcium 40 MG Tablet 1 tablet Orally Once a day , Discontinued Isosorbide Mononitrate ER 30 MG Tablet Extended Release 24 Hour Oral , Discontinued Metoprolol Succinate 25 MG Capsule ER 24 Hour Sprinkle 1/2 tablet Orally when needed , Medication List reviewed and reconciled with the patient * Allergies:??Bee Sting: swell ing - Allergy. Objective: * Vitals:??HR:61/min, BP:126/7 8mm Hg, Wt:186.8lbs, BMI:25.33Index, Ht: 72 in, Oxygen sat %:97%. * Physical Examination:?General: Age appropriate male, well appearing, no acute distress, speaking in full sentences without respiratory compromise. Well groomed, well developed. Alert, Interactive. ? Skin: Warm, dry and intact. ? HEENT: Normocephalic/atraumatic. ? Neck/Thyroid: Supple. Full ROM. ? Lung: Clear to auscultation bilaterally, no wheezes, rales or rhonchi. No barrel chest. Equal chest rise and fall bilaterally. ? Cardiac: S1 and S2 appreciated. No murmurs/rubs or gallops. ?Abdomen: Soft, nontender, normoactive bowel sounds. No rebound/guarding. No Masses. ? Psych: Stable mood and affect. Assessment: * Assessment: 1.??Intermittent chest pain - R07.9 (Primary)??2.??Essential (primary) hypertension - I10??3.??Coronary artery disease, unspecified vessel or lesion type, unspecified whether angina present, unspecified whether [place] or transplanted heart - I25.10??4.??Hyperlipidemia, mixed - E78.2??5.??Chronic anticoagulation - Z79.01??6.??Atrial fibrillation - I48.91?? Romeo is a pleasant 69-year- old male present today for hospital follow-up. Past medical history of hypertension, atrial fibrillation, hyperlipidemia, BPH, osteoarthritis, coronary artery disease, remote anterior wall TX status post PCI to the LAD with in-stent restenosis status post PCI, A-fib monitored via implantable loop recorder status post cardioversion and ablation 05/23/24, melanoma in situ. #Of note patient was previously seen at [facility] from 07/14 - 07/15 for lightheadedness, tightness [...] was unable to process blood work. Search [facility] with no success in finding blood work [...] daughter preferred to be discharged home with follow- up with cardiology outpatient. Patient scheduled to see [facility] cardiology for this 08/09/2024. # Patient [...] follow-up. Plan to refer patient to Dr. Washington, GI for possible GI workup to determine [...] Dictation was accomplished with the use of [employer] voice recognition software, prone to medical misidentifications and grammatical errors. This is unintentional and the practitioner does try to identify and correct these, but some could still be present. Please do not hesitate to contact practitioner for clarification. Plan: * Treatment: * Images: Billing Information: * Visit Code:?? 51551 Office Visit, Est Pt., Level 4. * Procedure Codes:?? * Sign off status: Completed true * Provider:??KIMMIE HELMS PA-C Date:??02/2025 History and Physical Notes * HPI (History of Present Illness) Category Sub-Category Detail Notes Category Not es Constitutional Romeo is a pleasant 69-year-old male with a past medical history of hypertension, atrial fibrillation, hyperlipidemia, BPH, osteoarthritis, coronary artery disease, remote anterior wall TX status post PCI to the LAD with in-stent restenosis status post PCI, A-fib monitored via implantable loop recorder status post cardioversion and ablation 05/23/24, melanoma in situ who presents to the office today for ER follow up on 08/03/23. Patient was seen on 08/03/24 at [facility] ER reporting chest pain. Of note patient was previously seen at [facility] in [place] 07/14-07/15 for lightheadedness, tightness in chest and swollen ankles with workup including echocardiogram, chest x-ray and EKG which was unremarkable. Patient followed by cardiology. Bilateral carotid ultrasound ordered at last hospital follow-up, but this was not obtained by patient. Bloodwork also ordered, which patient states he received at [facility], but states they were not able to process order due to issue with diagnosis codes. No labs available through [facility]. 08/03/23: Patient presented to the ER via EMS with chest pain experienced for a few weeks of chest pain, worse the night prior requiring the use of Imdur for the first time, he had been taking nitroglycerin at night with relief of chest pain. Patient also reported abdominal pain and cramping simultaneously to the chest pain. Labs ordered including troponins, EKG, chest x-ray, CTA chest, abdomen and pelvis. Patient was trialed on nitroglycerin and was provided aspirin 324 mg for possible ACS. Lab work also included CBC, CMP and a bedside aortic ultrasound was ordered which revealed aorta within normal limits of 2 cm. Bedside cardiac ultrasound showed normal EF, no pericardial effusion, no evidence of right heart strain, normal IVC. EKG showed sinus bradycardia at a rate of 54, left axis deviation, no acute ST changes. Patient's chest pain resolved with nitro and aspirin. Patient was offered admission for telemetry for further cardiac workup however patient and his daughter prefer to be discharged home with follow-up with cardiology outpatient. Patient has a long extensive cardiac history and followed by [facility] Cardiology with a stable management since April. Has follow up scheduled with cardiology for this 08/09/24. Last seen in June and evaluated with proper function of implantable loop recorder. With negative cardiac workup thus far in both hospital evaluations, patient notes that he may believe it could be anxiety related. States he experiences this chest pain at night while lying in bed as well as when watching intense football games. Reports normal bowel movements, no episodes of constipation or diarrhea. Denies shortness of breath, dyspnea on exertion, dizziness, lightheadedness, vision changes. Endorses heart burn at times for which he will use over the counter pepcid. Patient reports new recent use of CBD gummies to take at night, which he states has limited the episodes of night chest pain. Physical Examination Category Sub-Category Detail Notes Section Note s General: Age appropriate male, well appearing, no acute distress, speaking in full sentences without respiratory compromise. Well groomed, well developed. Alert, Interactive. Skin: Warm, dry and intact. HEENT: Normocephalic/atraumatic. Neck/Thyroid: Supple. Full ROM. Lung: Clear to auscultation bilaterally, no wheezes, rales or rhonchi. No barrel chest. Equal chest rise and fall bilaterally. Cardiac: S1 and S2 appreciated. No murmurs/rubs or gallops. Abdomen: Soft, nontender, normoactive bowel sounds. No rebound/guarding. No Masses. Psych: Stable mood and affect.
== END 2024-08-11 10:55 | disposition home or self-care (01) ==
PROVIDERS: Visit Provider Internal Medicine Cardiovascular Disease
DX: R07.9 Chest pain, unspecified (principal); I25.10 Atherosclerotic heart disease of native coronary artery without angina pectoris; I48.0 Paroxysmal atrial fibrillation
CPT/HCPCS: 93010; 99204; G2211

== ENCOUNTER → 2024-08-11 09:55 | Outpatient (BNVA) | payer MEDICARE, SELFPAY | PROVIDERS: Visit Provider Internal Medicine Cardiovascular Disease | DX: I25.10 Atherosclerotic heart disease of native coronary artery without angina pectoris (principal); I48.0 Paroxysmal atrial fibrillation; R07.9 Chest pain, unspecified; R00.1 Bradycardia, unspecified; R94.31 Abnormal electrocardiogram [ECG] [EKG] | CPT/HCPCS: 93005; 99202 ==

== ENCOUNTER 2024-08-20 07:52 | Outpatient (REF) | payer MEDICARE, SELFPAY ==
--- OUTSIDE RECORDS SUMMARY | 2024-08-20 07:55 | XMS_ITS | Continuity of Care Document ---
Author Organization [facility] Address [address] [place] [id number]- Care Team Providers Care Client Evaluator Name Role Phone Christine PALMA, Beth Chappell Primary Care Physician Encounter [facility] Date(s): 07/18/24 - 08/17/24 [facility] [address] [place] [id number]- Encounter Type: Triage Allergies, Adverse Reactions, Alerts No Known Allergies Medications amLODIPine 5 mg oral tablet 1 tablet = 5 mg, By Mouth, Daily, # 90 tablet, 0 Refills, Maintenance, 08/09/24 10:17:00 AM EST, Tablet, [id number], Partial fill upon patient request if the prescription is for a schedule II opioid drug., 183, cm, 08/09/24 9:39:00 EST, Height, 84, kg, 08/03/24 10:59:00 EST, Dry Weight Start Date: 08/09/24 Status: Ordered Quantity: 90.0 Unit: tablet Repeat number: 1 Aspirin = 81 mg, Daily, 0 Refills, [...] Quantity: 90.0 Unit: tablet Repeat number: 1 lisinopril 5 [...] Refills, Maintenance, 07/31/24 1:49:00 PM EST, Tablet, [id number], Partial fill upon patient request if the [...] Refills, Maintenance, 03/25/24 4:14:00 PM EDT, Tablet, [id number], Partial fill upon patient request [...] Team Personnel Name: Beth King MD Position: [facility] Outreach Member Role: PCP Address: [address] [place] [address] [address] [facility] [place], [place] [address] Telecom: Name: Rachana Potter Position: S Outreach Member Role: [employer] Consulting Physician Name: Dami Villaseñor MD Position: [facility] Cardiology MD Member Role: [employer] Consulting Physician Address: [address] [place] [address], 1st floor [facility] [place] [address]- [place] Telecom: Name: Deb Meléndez RN Position: S OB RN Member Role: Primary Care Nurse Care Team Related Persons Name: GO COX Name: VERNON COX Insurance Providers Guarantor name: MILES COX Health Plan Information #: 1 Payer: MEDICARE PART B OUTPT Member Number: NA Policy Number: NA Group Number: NA Health Plan Information #: 2 Payer: MEDEX Member Number: NA Policy Number: NA Group Number: NA
--- OUTSIDE RECORDS SUMMARY | 2024-08-20 07:56 | XMS_ITS | Patient Health Record ---
Author Organization [facility] [employer] [facility] Address [address] [place] [address] Care Team Providers Care Mail Handler Sorter Name Role Phone IZABELA KING Unavailable [phone] TRUONG STEVE Unavailable [phone] BJ ELLISON Unavailable [phone] KIMMIE HLEMS Unavailable [phone] IDALMISMULUGETA Unavailable [phone] ALLERGIES Allergen (clinical drug ingredient) Drug/Non Drug Allergy documented on EMR Reaction Allergy Type Onset Date Status Bee Sting swelling Allergy Active RESULTS Component Value Reference Range Notes US Extremity Nonvasc Ltd Reviewed date:11/29/2023 02:01:21 PM Interpretation: Performing Lab: Notes/Report: Original Ordering Provider: BJ KELLEY) [facility] VITAMIN D,25-OH,TOTAL,IA Reviewed date:03/28/2024 11:15:02 AM Interpretation: Performing Lab:NL2, [facility] [address] Janene Campo Notes/Report: FASTING: NO FASTING:NO 0; 0; 0; 0; 0 VITAMIN D,25-OH,TOTAL,IA 32 30-100 ng/mL Vitamin D Status 25-OH Vitamin D: Deficiency: <20 ng/mL Insufficiency: 20 - 29 ng/mL Optimal: > or = 30 ng/mL For 25-OH Vitamin D testing on patients on D2-supplementation and patients for whom quantitation of D2 and D3 fractions is required, the QuestAssureD(TM) 25-OH VIT D, (D2,D3), LC/MS/MS is recommended: order code [id number] (patients >2yrs). See Note 1 Note 1 For additional information, please refer to http://education.ManagerComplete/faq/AUM775 (This link is being provided for informational/ educational purposes only.) HEMOGLOBIN A1c Reviewed date:03/28/2024 11:15:52 AM Interpretation: Performing Lab:2, [facility] Janene Campo Notes/Report: FASTING: NO FASTING:NO 0; 0; 0; 0; 0 HEMOGLOBIN A1c 5.9 <5.7 % of total [...] change in test platforms from the Eli [employer]oelectronic Technician to the Vincent serenity c503 may have shifted HbA1c results compared to historical results. Based on laboratory validation testing conducted at [facility], the Vincent platform relative to the Eli platform had an average increase in HbA1c value of < or = 0.3%. This difference is within accepted variability established by the National Glycohemoglobin Standardization Program. Note that not all individuals will have had a shift in their results and direct comparisons between historical and current results for testing conducted on different platforms is not recommended. CBC (INCLUDES DIFF/PLT) Reviewed date:03/28/2024 11:14:55 AM Interpretation: Performing Lab:RAKEL2, [facility] Janene Campo Notes/Report: 0; 0; 0; 0; 0 FASTING:NO FASTING: NO WHITE BLOOD CELL COUNT 5.5 3.8-10.8 Thousand/ uL RED BLOOD CELL COUNT 5.22 4.20-5.80 Million/uL HEMOGLOBIN 16.1 13.2-17.1 g/dL HEMATOCRIT 49.3 38.5-50.0 % MCV 94.4 80.0-100.0 fL MCH 30.8 27.0-33.0 pg MCHC 32.7 32.0-36.0 g/dL RDW 12.8 11.0-15.0 % PLATELET COUNT 188 140-400 Thousand/uL MPV 10.4 7.5-12.5 fL ABSOLUTE NEUTROPHILS [phone] cells/uL ABSOLUTE LYMPHOCYTES 3661 670-8507 cells/uL ABSOLUTE MONOCYTES 380 200-950 cells/uL ABSOLUTE EOSINOPHILS 39 15-500 cells/uL ABSOLUTE BASOPHILS 28 0-200 cells/uL NEUTROPHILS 61.2 LYMPHOCYTES 30.7 MONOCYTES 6.9 EOSINOPHILS 0.7 BASOPHILS 0.5 COMPREHENSIVE METABOLIC PANE L Reviewed date:03/28/2024 11:15:02 AM Interpretation: Performing Lab:RAKEL2, [facility] Janene Campo Notes/Report: 0; 0; 0; [...] 17 10-35 U/L ALT 22 9-46 U/L LIPID PANEL, STANDARD Reviewed date:03/28/2024 11:14:55 AM Interpretation: Performing Lab:NL2, [facility] Janene Campo Notes/Report: 0; 0; 0; 0; 0 FASTING:NO FASTING: NO CHOLESTEROL, TOTAL 124 <200 mg/dL HDL CHOLESTEROL 52 > OR = 40 mg/dL TRIGLYCERIDES 121 <150 mg/dL LDL-CHOLESTEROL 52 Reference range: <100 Desirable range <100 mg/dL for primary prevention; <70 mg/dL for patients with CHD or diabetic patients with > or = 2 CHD risk factors. LDL-C is now calculated using the Hi-Oakes calculation, which is a validated novel method providing better accuracy than the Friedewald equation in the estimation of LDL-C. Hi SALINAS et al. ANDRE. 2013;310(19): 7809-3329 (http://education.Molecular Sensing.[employer]/faq/BPQ045) CHOL/HDLC RATIO 2.4 <5.0 (calc) NON HDL CHOLESTEROL 72 <130 mg/dL (calc) For patients with diabetes plus 1 major ASCVD risk factor, treating to a non-HDL-C goal of <100 mg/dL (LDL-C of <70 mg/dL) is considered a therapeutic option. REASON FOR REFERRAL Reason Colonoscopy with [facility] GI Diagnosis 1 Encounter for screen ing for malignant neoplasm of colon (Z12.11) Referral Organization [facility] Referring Provider First Name IZABELA Referring Provider Last Name TRUONG Referring Provider Speciality Internal edicine Referred Provider Specialty Gastroentero logy General Notes [facility] [address] [facility] [address], [phone] Clinical Notes Beverley Romero 2023 04:19:11 PM [...] malignant neoplasm of colon (Z12.11) Referral Organization [facility] Referring Provider First Name IZABELA [...] (D03.8) Active confirmed Melanoma in sit u (97857702) Problem Vitamin D deficiency, unspecified (E55.9) Active confirmed 93343557 Problem Essential (primary) hypertension (I10) Active confirmed Essential hypertension (51983049) Problem Encounter for general adult medical examination without abnormal findings (Z00.00) Active confirmed 726702062 Problem Encounter for screening for malignant neoplasm of colon (Z12.11) Active confirmed 036899550 Problem Encounter for screening for diabetes mellitus (Z13.1) Active confirmed 490808831 Problem Encounter for screening for lipoid disorders (Z13.220) Active confirmed 122968246 Problem Encounter for screening for cardiovascular disorders (Z13.6) Active confirmed 451060842 Problem Chronic anticoagulation (Z79.01) Active confirmed Use of anticoagulation (088529140) Problem Coronary artery disease involving [place] coronary artery of [place] heart without angina pectoris (I25.10) Active confirmed Atherosclerotic heart disease of [place] coronary artery without angina pectoris (178990767242979) Problem Coronary artery disease, unspecified vessel or lesion type, unspecified whether angina present, unspecified whether [place] or transplanted heart (I25.10) Active confirmed Atherosclerotic heart disease of [place] coronary artery without angina pectoris (742829775426263) Problem Hyperlipidemia, mixed (E78.2) Active confirmed Mixed hyperlipidemia (328659642) Problem Benign essential hypertension (I10) Active confirmed Benign es sential hypertension (1910258) Problem Atrial fibrillation (I48.91) Active confirmed Atrial fibrillation (99732022) Problem Leg mass, right (R22.41) Active confirmed 288111687 Problem Muscle rupture (T14.8XXA) Active confirmed 257758663 Problem Implantable loop recorder present (Z95.818) Active confirmed Implantable loo p recorder present (1615439729) Problem Light headed (R42) Active confirmed 386 238697 VITAL SIGNS Heart Rate 61 /min 08/06/2024 Oximetry 97 % 08/06/2024 Blood pressure diastolic 78 mm Hg 08/06/2024 Height 72 in 08/06/2024 Blood pressure systolic 126 mm Hg 08/06/2024 Weight 186.8 lbs 08/06/2024 BMI 25.33 kg/m2 08/06/2024 Encounters Encounter Location Date Provider Diagnosis [facility] [address] [place] [address] 07/09/2024 IZABELA KING [facility] [address] [place] [address] 08/14/2024 KIMMIE EHLMS [facility] [address] [place] [address] 10/24/2023 IZABELA KING Coronary artery dise ase involving [place] coronary artery of [place] heart without angina pectoris I25.10 ; Atrial fibrillation I48.91 ; Benign essential hypertension I10 and Hyperlipidemia, mixed E78.2 [facility] [address] [place] [address] 11/23/2023 BJ ELLISON Leg mass, right R22. 41 ; Atrial fibrillation I48.91 and Chronic anticoagulation Z79.01 [facility] [address] [place] [address] 04/01/2024 IZABELA KING Coronary artery dise ase involving [place] coronary artery of [place] heart without angina pectoris I25.10 ; Over weight E66.3 ; Prediabetes R73.03 ; BMI 26.0-26.9,adult Z68.26 and Hyperlipidemia, mixed E78.2 [facility] [address] [place] [address] 07/09/2024 IZABELA KING Adult general medica l exam Z00.00 and Prediabetes R73.03 [facility] [address] [place] [address] 07/18/2024 MULUGETA RAYGOZA Hospital discharge follow-up Z09 ; Coronary artery disease involving [place] coronary artery of [place] heart without angina pectoris I25.10 ; Atrial fibrillation I48.91 ; Hyperlipidemia, mixed E78.2 ; Chronic anticoagulation Z79.01 ; Implantable loop recorder present Z95.818 and Light headed R42 [facility] [address] [place] [address] 08/06/2024 KIMMIE HELMS Essential (primary) hypertension I10 ; Intermittent chest pain R07.9 ; Coronary artery disease, unspecified vessel or lesion type, unspecified whether angina present, unspecified whether [place] or transplanted heart I25.10 ; Hyperlipidemia, mixed E78.2 ; Chronic anticoagulation Z79.01 and Atrial fibrillation I48.[address] [place] [address] 11/09/2023 IZABELA KING [facility] [address] [place] [address] 11/15/[address] [place] [address] 07/03/[address] [place], [place] 07/07/2024 IAZBELA KING [address] [place] [address] 07/16/[address] [place] [address] 07/18/[address] [place] [address] 07/18/2024 MULUGETA IDALMIS [facility] [address] [place] [address] 08/01/2024 VALENTÍNLAKIA TRUONG [address] [place] [address] 08/04/2024 VALENTÍNLAKIA TRUONG [address] [place] [address] 08/12/2024 KIMMIE HELMS Renal lesion N28.9 [address] [place] [address] 08/18/2024 MULUGETA IDALMIS Renal cyst N28.1 and Pancreatic mass K86.89 [facility] [address] [place] [address] 10/23/2023 BJ ELLISON [facility] [address] [place] [address] 07/09/2024 VALENTÍNLAKIA TRUONG [facility] [address] [place] [address] 07/09/2024 [address] TRUONG [address] [place] [address] 08/19/2024 VALENTÍNLAKIA TRUONG ASSESSMENTS Encounter Date Diagnosis Assessment Notes Treatment Notes Treatment Clinical Notes Section Notes 10/24/2023 Coronary artery disease involving [place] coronary artery of [place] heart without angina pectoris (ICD-10 - I25.10) [...] blood work/physical. 04/01/2024 Coronary artery disease involving [place] coronary artery of [place] heart without angina pectoris (ICD-10 - I25.10) [...] Dictation was accomplished with the use of [employer] voice recognition software, prone to medical misidentifications [...] Dictation was accomplished with the use of [employer] voice recognition software, prone to medical misidentifications [...] log exercise and discussed fitness Apps like [employer] which can help keep log off calories [...] log exercise and discussed fitness Apps like [employer] which can help keep log off calories [...] osteoarthritis, coronary artery disease, 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 #Hospital course:The patient presented to [facility] on 07/14 for a chief complaint of [...] is 104/56, he is to call his mines inspector to discuss this further. The patient admits to the mines inspector and previous providers have not prescribed Lasix in the past, therefore I am uncomfortable doing this at this time. #Lightheadedness: Patient would benefit from a bilateral carotid ultrasound, order placed today. Differential at this time includes carotid artery stenosis, atherosclerosis of cartoid arteries. #Hypertension: Patient and I discussed blood pressure management, he is to touch based with his mines inspector as they monitor his blood pressure medication. The patient is currently taking lisinopril 5 mg tablets, however patient's blood pressure in office today is 104/56, which has been the lowest reading thus far. Previous readings in [facility] have been around 140 systolic. #Hyperlipidemia: [...] Dictation was accomplished with the use of [employer] voice recognition software, which is prone to medical misidentifications and grammatical errors. This are unintentional and the practitioner does try to identify and correct these, but some could still be present. Please do not hesitate to contact practitioner for clarification. 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 #Hospital course:The patient presented to [facility] on 07/14 for a chief complaint of [...] is 104/56, he is to call his mines inspector to discuss this further. The patient admits to the mines inspector and previous providers have not prescribed Lasix in the past, therefore I am uncomfortable doing this at this time. #Lightheadedness: Patient would benefit from a bilateral carotid ultrasound, order placed today. Differential at this time includes carotid artery stenosis, atherosclerosis of cartoid arteries. #Hypertension: Patient and I discussed blood pressure management, he is to touch based with his mines inspector as they monitor his blood pressure medication. The patient is currently taking lisinopril 5 mg tablets, however patient's blood pressure in office today is 104/56, which has been the lowest reading thus far. Previous readings in [facility] have been around 140 systolic. 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 #Of note patient was previously seen at [facility] from 07/14 - 07/15 for lightheadedness, [...] was unable to process blood work. Search [facility] with no success in finding blood work [...] with cardiology outpatient. Patient scheduled to see [facility] cardiology for this 08/09/2024. # Patient today [...] post cardioversion and ablation 05/23/2024. Patient has [employer], which will alert regarding any arrhythmias detected. 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 #Of note patient was previously seen at [facility] from 07/14 - 07/15 for lightheadedness, [...] was unable to process blood work. Search [facility] with no success in finding blood work [...] with cardiology outpatient. Patient scheduled to see [facility] cardiology for this 08/09/2024. # Patient today [...] Dictation was accomplished with the use of [employer] voice recognition software, prone to medical misidentifications and grammatical errors. This is unintentional and the practitioner does try to identify and correct these, but some could still be present. Please do not hesitate to contact practitioner for clarification. 08/12/2024 Renal lesion (ICD-10 - N28.9) 08/18/2024 Renal cyst (ICD-10 - N28.1) 08/18/2024 Pancreatic mass (ICD-10 - K86.89) 08/06/2024 Coronary artery disease, unspecified vessel or lesion type, unspecified whether angina present, unspecified whether [place] or transplanted heart (ICD-10 - I25.10) Romeo is a pleasant 69-year-old male present today for hospital follow-up. 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 #Of note patient was previously seen at [facility] from 07/14 - 07/15 for lightheadedness, [...] was unable to process blood work. Search [facility] with no success in finding blood work [...] with cardiology outpatient. Patient scheduled to see [facility] cardiology for this 08/09/2024. # Patient today [...] Dictation was accomplished with the use of [employer] voice recognition software, prone to medical misidentifications [...] schedule for follow-up with blood work/physical. 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 #Hospital course:The patient presented to [facility] on 07/14 for a chief complaint of [...] is 104/56, he is to call his mines inspector to discuss this further. The patient admits to the mines inspector and previous providers have not prescribed Lasix in the past, therefore I am uncomfortable doing this at this time. #Lightheadedness: Patient would benefit from a bilateral carotid ultrasound, order placed today. Differential at this time includes carotid artery stenosis, atherosclerosis of cartoid arteries. #Hypertension: Patient and I discussed blood pressure management, he is to touch based with his mines inspector as they monitor his blood pressure medication. The patient is currently taking lisinopril 5 mg tablets, however patient's blood pressure in office today is 104/56, which has been the lowest reading thus far. Previous readings in [facility] have been around 140 systolic. 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 #Of note patient was previously seen at [facility] from 07/14 - 07/15 for lightheadedness, [...] with cardiology outpatient. Patient scheduled to see [facility] cardiology for this 08/09/2024. 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 #Hospital course:The patient presented to [facility] on 07/14 for a chief complaint of [...] is 104/56, he is to call his mines inspector to discuss this further. The patient admits to the mines inspector and previous providers have not prescribed Lasix in the past, therefore I am uncomfortable doing this at this time. #Lightheadedness: Patient would benefit from a bilateral carotid ultrasound, order placed today. Differential at this time includes carotid artery stenosis, atherosclerosis of cartoid arteries. #Hypertension: Patient and I discussed blood pressure management, he is to touch based with his mines inspector as they monitor his blood pressure medication. The patient is currently taking lisinopril 5 mg tablets, however patient's blood pressure in office today is 104/56, which has been the lowest reading thus far. Previous readings in [facility] have been around 140 systolic. 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 #Of note patient was previously seen at [facility] from 07/14 - 07/15 for lightheadedness, [...] was unable to process blood work. Search [facility] with no success in finding blood work [...] with cardiology outpatient. Patient scheduled to see [facility] cardiology for this 08/09/2024. # Patient today [...] post cardioversion and ablation 05/23/2024. 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 #Hospital course:The patient presented to [facility] on 07/14 for a chief complaint of [...] is 104/56, he is to call his mines inspector to discuss this further. The patient admits to the mines inspector and previous providers have not prescribed Lasix in the past, therefore I am uncomfortable doing this at this time. #Lightheadedness: Patient would benefit from a bilateral carotid ultrasound, order placed today. Differential at this time includes carotid artery stenosis, atherosclerosis of cartoid arteries. #Hypertension: Patient and I discussed blood pressure management, he is to touch based with his mines inspector as they monitor his blood pressure medication. The patient is currently taking lisinopril 5 mg tablets, however patient's blood pressure in office today is 104/56, which has been the lowest reading thus far. Previous readings in [facility] have been around 140 systolic. 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 #Hospital course:The patient presented to [facility] on 07/14 for a chief complaint of [...] is 104/56, he is to call his mines inspector to discuss this further. The patient admits to the mines inspector and previous providers have not prescribed Lasix in the past, therefore I am uncomfortable doing this at this time. #Lightheadedness: Patient would benefit from a bilateral carotid ultrasound, order placed today. Differential at this time includes carotid artery stenosis, atherosclerosis of cartoid arteries. #Hypertension: Patient and I discussed blood pressure management, he is to touch based with his mines inspector as they monitor his blood pressure medication. The patient is currently taking lisinopril 5 mg tablets, however patient's blood pressure in office today is 104/56, which has been the lowest reading thus far. Previous readings in [facility] have been around 140 systolic. 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 #Of note patient was previously seen at [facility] from 07/14 - 07/15 for lightheadedness, [...] was unable to process blood work. Search [employer] with no success in finding blood work [...] with cardiology outpatient. Patient scheduled to see [facility] cardiology for this 08/09/2024. # Patient today [...] post cardioversion and ablation 05/23/2024. Patient has [employer] Watch, which will alert regarding any arrhythmias [...] Dictation was accomplished with the use of [employer] voice recognition software, prone to medical misidentifications and grammatical errors. This is unintentional and the practitioner does try to identify and correct these, but some could still be present. Please do not hesitate to contact practitioner for clarification. 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 #Hospital course:The patient presented to [facility] on 07/14 for a chief complaint of [...] is 104/56, he is to call his mines inspector to discuss this further. The patient admits to the mines inspector and previous providers have not prescribed Lasix in the past, therefore I am uncomfortable doing this at this time. #Lightheadedness: Patient would benefit from a bilateral carotid ultrasound, order placed today. Differential at this time includes carotid artery stenosis, atherosclerosis of cartoid arteries. #Hypertension: Patient and I discussed blood pressure management, he is to touch based with his mines inspector as they monitor his blood pressure medication. The patient is currently taking lisinopril 5 mg tablets, however patient's blood pressure in office today is 104/56, which has been the lowest reading thus far. Previous readings in [facility] have been around 140 systolic. #Hyperlipidemia: [...] Dictation was accomplished with the use of [employer] voice recognition software, which is prone to medical misidentifications and grammatical errors. This are unintentional and the practitioner does try to identify and correct these, but some could still be present. Please do not hesitate to contact practitioner for clarification. PLAN OF TREATMENT Pending Test Test Name Order Date CT Scan : Kidneys 08/12/2024 MRI : Abdomen with and without Contrast 08/18/2024 Ultrasound : Carotid Doppler Bilateral 1 09/18/2023 Lower Extremity Ultrasound 11/23/2023 CARDIO IQ(R) GLUCOSE 07/09/2024 CARDIO IQ(R) TRIGLYCERIDES 07/09/2024 CARDIO IQ(R) CHOLESTEROL, TOTAL 07/09/20 CARDIO IQ(R) HDL CHOLESTEROL 07/09/2024 CARDIO IQ(R) LIPOPROTEIN (a) 07/09/2024 CARDIO IQ(R) HEMOGLOBIN A1c 07/09/2024 LIPASE 08/18/2024 AMYLASE 08/18/2024 CARDIO IQ(R) INSULIN 07/09/2024 CARDIO IQ(R) VITAMIN D, 25-HYDROXY, LC/M S/MS 07/09/2024 CARDIO IQ(R) OMEGA 3 AND 6 FATTY ACIDS 1 09/09/2023 CARDIO IQ(R) DIRECT LDL 07/09/2024 CA [id number] 08/18/2024 Next Appt Details Provider Name:MULUGETA RAYGOZA, 10:30:00 AM, [address], [place], [address], Provider Name:IZABELA KING, 10:45:00 AM, [address], [place], [address], Insurance Providers Payer Name Payer Address Payer Phone Subscriber Number Group Number Insured Name Patient Relationship to Insured Coverage Start Date Coverage End Date Medicare Part B J14 [address] jaelyn [place] [phone] [id number] Romeo Aranda Self - patient is the insured 9 MEDEX [address] [place] [address] [phone] [id number] ManojRomeo Self - patient is the insured 9 MEDICAL (GENERAL) HISTORY Medical History History ICD Code Essential (primary) hypertension I10 Atrial fibrillation I48.91 Hyperlipidemia E78.5 BPH without urinary obstruction N40.0 Osteoarthritis M19.90 Coronary artery disease, uns pecified vessel or lesion type, unspecified whether angina present, unspecified whether [place] or transplanted heart I25.10 Melanoma in situ of other sites D03.8 Surgical History Surgery Date(Month/Year) Cholecystectomy Loop recorder Cardiac ablation [facility] Dr. Rebolledo Apr 2024 Hospitalization History Reason Date(Month/Year) Atrial fibrillation (Cardiology- Dr. Cui ty) 2022 Heart Attack (stent) 2000
--- OUTSIDE RECORDS SUMMARY | 2024-08-20 07:56 | XMS_ITS ---
Author Organization [facility] Address [address] [place] [address] Care Team Providers Care Ct Scan Special Procedures Technologist Name Role Phone IZABELA GUERIN Unavailable [phone] Encounters Encounter Location Date Provider Diagnosis [facility] [address] [facility] [address] [place] [address] 08/19/2024 IZABELA GUERIN PLAN OF TREATMENT Next Appt Details Provider Name:MULUGETA RAYGOZA, 10:30:00 AM, [address], [place], [address], Provider Name:IZABELA GUERIN, 10:45:00 AM, [address], [place], [address], Progress Notes * Romeo ARANDADOB:1955 ( 69 yo M)Acc No.[id number]:08/19/2024 Patient:??Romeo ARANDA :1955?Age:69 Y?Sex:Sadie juanita Address:[address] [place] [address] * true * Date:??
--- OUTSIDE RECORDS SUMMARY | 2024-08-20 07:56 | XMS_ITS | Clinical Summary ---
Author Organization [facility] [address] [facility] Address [address] [place] [address] Phone Care Team Providers Care Sack Cleaner Name Role Phone Beth King MD Primary Care Provider [phone] Allergies No known active allergies Medications Medication Sig Dispensed Refills Start Date End Date Status sildenafiL (VIAGRA) 100 mg tablet TAKE ONE TABLET BY MOUTH 1/2-1 HOUR BEFORE INTERCOURSE DIRECTED 06/18/2024 Active Xarelto 20 mg tablet TAKE 1 TABLET BY MOUTH EVERY DAY AT SUPPER Active Nitrostat 0.[address] 1 tablet (0.4 mg total) under the tongue. 07/31/2024 Active nitroglycerin (NITRODUR) 0.1 mg/hr 08/12/2024 Acti ve lisinopriL (PRINIVIL,ZESTRIL) 5 mg tablet Take 1 tablet (5 mg total) by mouth. 04/25/2024 Active atorvastatin (LIPITOR) 40 mg tablet Take 1 tablet (40 mg total) by mouth. 04/25/2024 Active cyanocobalamin (Vitamin B-12) 1,000 mcg tablet Daily, 0 Refills, Maintenance, 04/25/18 4:37:31 PM EDT 04/25/2018 Active aspirin 81 mg capsule 81 mg. 12/06/2011 Active Active Problems Problem Noted Date Diagnosed Date Other chest pain 08/13/2024 Encounters Date Type Department Care Team Description 08/13/2024 2:00 PM EST Office Visit Gastroenterology - [address] [address] Jeremías Washington MD Other chest pain (Primary Dx) 07/29/2024 Telephone Gastroenterology - [address] [id number] Jeremías Washington MD from Last 3 Months Social History Tobacco Use Types Packs/Day Years Used Date Smoking Tobacco: Former Cigarettes Tobacco Cessation:Counseling Given: Not Answered Alcohol Use Standard Drinks/Week Comments Not Currently 0 (1 standard drink = 0.6 oz pur e alcohol) Sex and Gender Information Value Date Recorded Sex Assigned at Not on file Gender Identity Not on file Sexual Orientation Not on file Job Start Date Occupation Industry Not on file Not on file Not on file Obstetrics History Last Filed Vital Signs Vital Sign Reading Time Taken Comments Blood Pressure - - Pulse - - Temperature - - Respiratory Rate - - Oxygen Saturation - - Inhaled Oxygen Concentration - - Weight 83.5 kg (184 lb) 08/13/2024 2:05 PM EST Height 182.9 cm (6') 08/13/2024 2:05 PM EST Body Mass Index 24.95 08/13/2024 2:05 PM EST Plan of Treatment Health Maintenance Due Date Last Done Comments DTaP,Tdap,and Td Vaccines (1 - Tdap) 1974 Pneumococcal Vaccine: 65+ Years (2 of 2 - PPSV23 or PCV20) 05/02/2021 05/02/2020 Abdominal Aortic Aneurysm (AAA) Screen 02/26/2024 Cholesterol Screening (Lipid Panel) 02/26/2024 Colorectal Cancer Screening: Colonoscopy 02/26/2024 Depression Screening 02/26/2024 Falls Risk Assessment 02/26/2024 Hepatitis C Screening 02/26/2024 Medicare Annual Wellness Visit 02/26/2024 Social Influencers of Health Screening 02/26/2024 Zoster Vaccines Completed 07/12/2020, 03/23/2020 RSV Immunization Patients 60+ Years Old Completed 04/16/2023 COVID-19 Vaccine Completed 04/30/2024, 07/2023, 06/26/2023, Additional history exists Influenza Vaccine Completed 04/30/2024, , 04/25/2022, Additional history exists HIB Vaccines Aged Out No longer eligi ble based on patient's age to complete this topic HPV Vaccines Aged Out No longer eligi ble based on patient's age to complete this topic Hepatitis A Vaccines Aged Out No long er eligible based on patient's age to complete this topic Hepatitis B Vaccines Aged Out No long er eligible based on patient's age to complete this topic IPV Vaccines Aged Out No longer eligi ble based on patient's age to complete this topic MMR Vaccines Aged Out No longer eligi ble based on patient's age to complete this topic Meningococcal ACWY Vaccine Aged Out N o longer eligible based on patient's age to complete this topic RSV Immunization Patients Under 20 months Aged Out No longer eligible based on patient's age to complete this topic Varicella Vaccines Aged Out No longer eligible based on patient's age to complete this topic Care Teams Sack Cleaner Relationship Specialty Start Date End Date Beth King MD [address] [place] [address] PCP - General Internal Medicine 08/13/24
--- OUTSIDE RECORDS SUMMARY | 2024-08-20 07:56 | XMS_ITS | Continuity of Care Document ---
Author Organization [facility] Address [address] [place] [address]- Care Team Providers Care Senior Quality Engineer Name Role Phone Christine PALMA, Beth Chappell Primary Care Physician En[place] [facility] Date(s): 07/14/24 - 08/13/24 [facility] [address] [place] [address]- Referring Physician: Ann Salgado Encounter Type: Triage Allergies, Adverse Reactions, Alerts [...] Refills, Maintenance, 07/31/24 1:49:00 PM EST, Tablet, [id number], Partial fill upon patient request if the [...] Refills, Maintenance, 03/25/24 4:14:00 PM EDT, Tablet, [id number], Partial fill upon patient request [...] Team Personnel Name: Beth King MD Position: [facility] Outreach Member Role: PCP Address: [address] [place] [address] [address] [facility] [place], [place] [address] Telecom: Name: Rachana Potter Position: S Outreach Member Role: Lifetime Consulting Physician Name: Dami Villaseñor MD Position: [facility] Cardiology MD Member Role: Lifetime Consulting Physician Address: [address] [facility], 1st floor [facility] [place] [address]- [place] Telecom: Name: Deb Meléndez RN Position: [facility] OB RN Member Role: Primary Care Nurse Care Team Related Persons Name: GO COX Name: VERNON COX Insurance Providers Guarantor name: MILES BROOKE Health Plan Information #: 1 Payer: MEDICARE PART B OUTPT Member Number: NA Policy Number: NA Group Number: NA Health Plan Information #: 2 Payer: MEDEX Member Number: NA Policy Number: NA Group Number: NA
--- OUTSIDE RECORDS SUMMARY | 2024-08-20 07:56 | XMS_ITS ---
Author Organization [facility] Address [address] [facility] [place] [address] Care Team Providers Care Hvac R Instructor Name Role Phone IZABELA GUERIN Unavailable [phone] KIMMIE HELMS Unavailable [phone] REASON FOR VISIT bmc Encounters Encounter Location Date Provider Diagnosis [facility] [address] [facility] [place] [address] 08/14/2024 KIMMIE HELMS PLAN OF TREATMENT Next Appt Details Provider Name:MULUGETA RAYGOZA, 10:30:00 AM, [address], [place], [address], Provider Name:VALENTÍNLAKIA GUERIN, 10:45:00 AM, [address], [place], [address], Progress Notes * Romeo ARANDADOB:1955 ( 69 yo M)Acc No.[id number]:08/14/2024 Progress Note Patient:??Romeo ARANDA Provider:??KIMMIE HELMS PA-C :1955?Age:69 Y?Sex:Sadie grant Date:08/14/2024 Address:[address], [place] Subjective: * Chief Complaints: * ?1. Bmc. * Medical History:?? Objective: Assessment: Plan: * Treatment: * Images: Billing Information: * Visit Code:?? * Procedure Codes:?? * Sign off status: Pending * Provider:??KIMMIE HELMS PA-C Date:??
--- OUTSIDE RECORDS SUMMARY | 2024-08-20 07:56 | XMS_ITS | Encounter Summary ---
Author Organization [facility] Address [address] [place] [address] Care Team Providers Care Entry Level Mechanical Engineer Name Role Phone Beth King MD Primary Care Provider [phone] Reason for Visit * Reason Comments Chest Pain Tight chest radiatin g down chest Heart attack 2000 and stent placedNot cardiac issue Encounter Details Date Type Department Care Team (Late st Contact Info) Description 08/13/2024 2:00 PM EST Office Visit Gastroenterology - [address] [place] [phone] Jeremías Washington MD [address] [place] [address] Other chest pain (Primary Dx) Social History Tobacco Use Types Packs/Day Years [...] file Not on file Not on file documented as of this encounter Last Filed Vital Signs Vital Sign Reading Time Taken Comments Blood Pressure - - Pulse - - Temperature - - Respiratory Rate - - Oxygen Saturation - - Inhaled Oxygen Concentration - - Weight 83.5 kg (184 lb) 08/13/2024 2:05 PM EST Height 182.9 cm (6') 08/13/2024 2:05 PM EST Body Mass Index 24.95 08/13/2024 2:05 PM EST documented in this encounter Progress Notes * Jeremías Washington MD - 08/13/2024 2:00 PM EST PROGRESS NOTE Subjective Patient ID: Miles Aranda is a 69 y.o. male. Chief Complaint Patient presents with Chest Pain Tight chest radiating down chest Heart attack 2000 and stent placed Not cardiac issue This is a fellow with coronary artery disease, history of an anterior wall NV 2000 status post PCI to the LAD. He has a history of atrial fibrillation. Intermittent pver past three years. In July 2023 went into it, echo in September. His last cardioversion and ablation was in April. Since ablation no evidence of a fib. He has had chest pain described as tightness intermittent nonradiating. He is followed by [facility] cardiology. Of note is that during her recent admission he did have a CTof the chest abdomen pelvis which was just negative for aortic dissection. There was a question of an determinate he had been admitted to the [facility] earlier in June where a stress echo showed no EKG evidence of any ischemia. He was last seen by [facility] cardiology August 09. Interestingly his abdominal discomfort symptomswere relieved by nitroglycerin. But the isosorbide made his symptoms worse so he discontinued this medication. The chest pain does not occur with exertion. [facility] cardiology suggested the possibility of esophageal spasm. They discussed the possible calcium jim. They started her on amlodipine 5 mg a day. He is presenting to me with noncardiac chest pain. Goes back to mid June. Was feeling great. Holiday green party on the 11 of July, a green party with all sorts of food. Next day more fatigue, lightheaded, chest pains, random. Not a crushing pressure. Much less energy, lightheaded, chest pains come and go. Chest pains intermittent, mostly later in day, evening. Worse in evening (not associated with stress or activity.) Nitro helped. Isosorbide, as above,made it worse. Then prescribed Amlodipine 5 mg. Didn't take it. Clinical Professor recommended half dose, and this made symptoms worse. Radiated to abdomen. Nitro patch working. Pains not always the same. On left and right. Low level. NO relationship to eating. Maybe worse with position. (CPAP at night) No heartburn. No indigestion. Bowels fairly normal. No blood in stool. No weight loss. GB out. Colonoscopy age 59 Dr. Hawkins. Diverticulosis. Labs from July from [facility] showed a normal CBC. His last liver tests were in June and werecompletely normal. CT angiography from August 23 showed no abdominal pathology. And with oral contrast however. Stress echo was normal as well. He goes now to [facility], and going for a cath on . Pre-diabetic, ANGELICA, Spot on kidney (CT booked.) PCP has scheduled for echo carotids GB removed in 2000. Vitamin B12 came into picture 8-10 years ago. Issues with memory. Saw multiple doctors, but told B12 low. Low normal range. Medications include aspirin atorvastatin nitro patch, lisinopril Nitrostat Xarelto and vitamin B12. 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 Social History Socioeconomic History Marital status: Spouse name: Not on file Number of children: Not on file Years of education: Not on file Highest education level: Not on file Occupational History Not on file Tobacco Use Smoking status: Former Types: Cigarettes Smokeless tobacco: Not on file Substance and Sexual Activity Alcohol use: Not Currently Drug use: Not on file Sexual activity: Not on file Other Topics Concern Not on file Social History Narrative Not on file No past medical history on file. No past surgical history on file. Review of Systems Constitutional: Negative. Respiratory: Negative for shortness of breath. Cardiovascular: Negative for chest pain. Gastrointestinal: Negative. Genitourinary: Negative for difficulty urinating. Skin: Negative for color change. Psychiatric/Behavioral: Negative for agitation and confusion. Objective Physical Exam Vitals reviewed. Constitutional: General: He is not in acute distress. Appearance: Normal appearance. He is not ill-appearing, toxic-appearing or diaphoretic. HENT: Head: Normocephalic. Nose: Nose normal. Mouth/Throat: Mouth: Mucous membranes are moist. Pharynx: Oropharynx is clear. Eyes: Extraocular Movements: Extraocular movements intact. Cardiovascular: Rate and Rhythm: Normal rate and regular rhythm. Pulses: Normal pulses. Heart sounds: Normal heart sounds. Pulmonary: Effort: Pulmonary effort is normal. Breath sounds: Normal breath sounds. Abdominal: General: Abdomen is flat. There is no distension. Palpations: Abdomen is soft. There is no mass. Tenderness: There is no abdominal tenderness. There is no right CVA tenderness, left CVA tenderness, guarding or rebound. Hernia: No hernia is present. Musculoskeletal: General: Normal range of motion. Cervical back: Neck supple. Skin: General: Skin is warm. Neurological: General: No focal deficit present. Mental Status: He is alert and oriented to person, place, and time. Psychiatric: Mood and Affect: Mood normal. Behavior: Behavior normal. Assessment/Plan Chest pain. He currently is going to have a cardiac cath within a week or 2. My thought is to wait until that is done. If cardiac is ruled out I think we have to consider esophageal spasm and/or biliary colic. Biliary seems a less likely diagnosis given that his LFTs have been normal. My thought would be to put him on high-dose PPI, consider an MRCP of his bile ducts, and if that is all negative and upper endoscopy. Low B12. I do not have the initial numbers on this but at some point it would be reasonable to screen him for celiac disease and also check an antiparietal cell antibody as B12 deficiency can be associated with atrophic gastritis and a slightly higher incidence of gastric cancer. Colonoscopy. As discussed this fellow is due for screening colonoscopy. Again I am putting everything on hold until after this cardiac cath is accomplished. Last Recorded Vitals: Height 1.829 m (72 ), weight 83.5 kg (184 lb). Labs: No results found for: WBC , HGB , HCT , MCV , PLT No results found for: NA , K , CL , CO2 , BUN , CREATININE , CALCIUM , PROT , BILITOT , ALKPHOS , ALT , AST , GLUCOSE No results found for: WOUNDCX , BLOODCX , URINECX , CSFCX , AFBCX , MRSA Pertinent new radiology results/studies: US EXTREMITY NONVASC LTD [facility] Diagnostic Imaging Department [address] [place] [address] Patient: MILES ARANDA /Age/Sex: 1955 - 68 - M Unit#: [id number] [facility] Mnemonic/Ordering Site: [facility] Ordering Physician: TERRA KELLEY)BJ PA-C US Extremity Nonvasc Ltd - 11/27/23 - Report Status:Signed Indication: Right lower extremity mass FINDINGS: Ultrasound of the right lower extremity obtained in area of palpable abnormality. Superficial subcutaneous 10 mm x 8 mm x 4 mm hypoechoic nodule noted posterior descending lymph node. No abnormal vascularity or calcification. No cystic change. IMPRESSION: 10 mm subcutaneous nodule corresponds to palpable abnormality and has the appearance of a small lymph node. Dictating Physician: BRY ROBLEDO MD Electronically Signed by: BRY ROBLEDO MD Dic Date/Time: 11/29/23 1017 Sign date/Time: 11/29/23 1019 MEDICATIONS: Current Hospital Medications: Current Outpatient Medications: aspirin 81 mg capsule, 81 mg., Disp: , Rfl: atorvastatin (LIPITOR) 40 mg tablet, Take 1 tablet (40 mg total) by mouth., Disp: , Rfl: cyanocobalamin (Vitamin B-12) 1,000 mcg tablet, Daily, 0 Refills, Maintenance, 04/25/18 4:37:31 PM EDT, Disp: , Rfl: lisinopriL (PRINIVIL,ZESTRIL) 5 mg tablet, Take 1 tablet (5 mg total) by mouth., Disp: , Rfl: nitroglycerin (NITRODUR) 0.1 mg/hr, , Disp: , Rfl: Nitrostat 0.4 mg SL tablet, Place 1 tablet (0.4 mg total) under the tongue., Disp: , Rfl: sildenafiL (VIAGRA) 100 mg tablet, TAKE ONE TABLET BY MOUTH 1/2-1 HOUR BEFORE INTERCOURSE DIRECTED, Disp: , Rfl: Xarelto 20 mg tablet, TAKE 1 TABLET BY MOUTH EVERY DAY AT SUPPER, Disp: , Rfl: Home Medications: He has a current medication list which includes the following long-term medication(s): atorvastatin, lisinopril, nitroglycerin, nitrostat, sildenafil, and xarelto. Patient Active Problem List Diagnosis Other chest pain Jeremías Washington MD 3:13 PM EST documented in this encounter Plan of Treatment Not on file documented as of this encounter Visit Diagnoses Diagnosis Other chest pain- Primary documented in this encounter Historical Medications * This list may reflect changes made after this encounter. Medication Sig Dispensed Refills Start Date End Date aspirin 81 mg capsule 81 mg. 12/06/2011 cyanocobalamin (Vitamin B-12) 1,000 mcg tablet Daily, 0 Refills, Maintenance, 04/25/18 4:37:31 PM EDT 04/25/2018 atorvastatin (LIPITOR) 40 mg tablet Take 1 tablet (40 mg total) by mouth. 04/25/2024 lisinopriL (PRINIVIL,ZESTRIL) 5 mg tablet Take 1 tablet (5 mg total) by mouth. 04/25/2024 nitroglycerin (NITRODUR) 0.1 mg/hr 08/12/2024 Nitrostat 0.[address] 1 tablet (0.4 mg total) under the tongue. 07/31/2024 Xarelto 20 mg tablet TAKE 1 TABLET BY MOUTH EVERY DAY AT SUPPER sildenafiL (VIAGRA) 100 mg tablet TAKE ONE TABLET BY MOUTH 1/2-1 HOUR BEFORE INTERCOURSE DIRECTED 06/18/2024 added in this encounter Care Teams Entry Level Mechanical Engineer Relationship Specialty Start Date End Date Beth King MD [address] [place] [address] PCP - General Internal Medicine 08/13/24 documented as of this encounter
--- OUTSIDE RECORDS SUMMARY | 2024-08-20 07:56 | XMS_ITS | Patient Health Record ---
Author Organization [facility] Uyen Lopez Address [address] [facility] [place] [address] Care Team Providers Care Hardboard Press Operator Name Role Phone Dorys Tenorio PA-C Primary Care Provider Jessica Beckett Danelle Unavailable [phone] Allergies No Known Allergies Reason For Referral [...] Medicare National Govt [employer] [address] [place] [address] [id number] Romeo Aranda Self - patient is the insured [employer] [address] [place] [address] [phone] [id number] Romeo Aranda Self - patient is the insured Medical (General) History Medical History History ICD Code Angina Arthritis Back,Hip,and Knee pain Broken bones Cholesterol Cancer covid-19 Diverticulosis Gall bladder problems Measles Mumps Chicken pox Surgical History Surgery Date(Month/Year) gall bladder surgery 2001 Stent surgery 2000
--- OUTSIDE RECORDS SUMMARY | 2024-08-20 07:56 | XMS_ITS ---
Author Organization [facility] Address [address] [place] [address] Care Team Providers Care Jewel Blocker And Sawyer Name Role Phone IZABELA GUERIN Unavailable [phone] MULUGETA RAYGOZA Unavailable [phone] REASON FOR VISIT lab results Encounters Encounter Location Date Provider Diagnosis [address] [place] [phone] 08/18/2024 MULUGETA IDALMIS Renal cyst N2 8.1 and Pancreatic mass K86.89 ASSESSMENTS Encounter Date Diagnosis Assessment Notes Treatment Notes Treatment Clinical Notes Section Notes 08/18/2024 Renal cyst (ICD-10 - N28.1) 08/18/2024 Pancreatic mass (ICD-10 - K86.89) PLAN OF TREATMENT Pending Test Test Name Order Date MRI : Abdomen with and without Contrast 08/18/2024 LIPASE 08/18/2024 AMYLASE 08/18/2024 CA [id number] 08/18/2024 Next Appt Details Provider Name:MULUGETA RAYGOZA, 10:30:00 AM, [address], [place], [address], Provider Name:IZABELA GUERIN, 10:45:00 AM, [address], [place], [address], Progress Notes * Romeo ARANDADOB:1955 ( 69 yo M)Acc No.[id number]:08/18/2024 Patient:??Romeo ARANDA :1955?Age:69 Y?Sex:Ma le Address:[address] [place] [address] Subjective: * Chief Complaints: * ?Lab results * Medical History:?? * Surgical History:?? * Hospitalization/Major Diagno stic Procedure:?? * Medications:?? Objective: Assessment: * Assessment: 1.??Renal cyst - N28.1??2.?? Pancreatic mass - K86.89?? Plan: * Treatment: 2.??Pancreatic mass?LAB: LIPASE ?LAB: AMYLASE ?LAB: CA [id number] ?Imaging: MRI : Abdomen with and without Contrast* r/o pancreatitis * Procedure Codes:?? * true * Date:??
--- OUTSIDE RECORDS SUMMARY | 2024-08-20 07:56 | XMS_ITS | Continuity of Care Document ---
Author Organization [facility] Address [address] [place] [address]- Care Team Providers Care Administrative Office Specialist Name Role Phone Christine PALMA, Beth Chappell Primary Care Physician Encounter [facility] Date(s): 07/18/24 - 08/17/24 [facility] [address] [place] [address]- Referring Physician: Ann Salgado Encounter Type: Triage [...] Refills, Maintenance, 07/31/24 1:49:00 PM EST, Tablet, [id number], Partial fill upon patient request if the [...] Refills, Maintenance, 03/25/24 4:14:00 PM EDT, Tablet, [id number], Partial fill upon [...] Team Personnel Name: Beth King MD Position: [facility] Outreach Member Role: PCP Address: [address] [place] [address] [address] [facility] [place], [place] [address] Telecom: Name: Rachana Potter Position: S Outreach Member Role: Lifetime Consulting Physician Name: Dmai Villaseñor MD Position: [facility] Cardiology MD Member Role: Lifetime Consulting Physician Address: [address] [facility], 1st floor [facility] [place] [address]- [place] Telecom: Name: Deb Meléndez RN Position: [facility] OB RN Member Role: Primary Care [...]
--- OUTSIDE RECORDS SUMMARY | 2024-08-20 07:56 | XMS_ITS | Encounter Summary ---
Author Organization [facility] Address [address] [place] [address] Care Team Providers Care Seed Sorter Name Role Phone Unavailable Primary Care Provider Unavailabl e Encounter Details Date Type Department Care Team (Late st Contact Info) Description 07/29/2024 Telephone Gastroenterology - [address] [place] [phone] Jeremías Washington MD [address] [place] [address] Social History Tobacco Use Types Packs/Day Years Used Date Smoking Tobacco: Never Assessed Sex and Gender Information Value Date Recorded Sex Assigned at Not on file Gender Identity Not on file Sexual Orientation Not on file Job Start Date Occupation Industry Not on file Not on file Not on file documented as of this encounter Progress Notes * Eloise Boss - 07/29/2024 12:51 PM EST EST PT, H&P IN [employer]. LAST COLON 04/2015 10 YEAR RECALL, PT DUE 04/2025. documented in this encounter Plan of Treatment Not on file documented as of this encounter Visit Diagnoses Not on filedocumented in this encounter
[2024-08-20 08:56] LABS: Hemoglobin 16.6 g/dl (14.0-18.0); Mean Corpuscular HGB Conc 33.9 g/dl (31.0-36.0); Mean Corpuscular Hemoglobin 30.6 pg (27.0-33.0); Mean Corpuscular Volume 90.4 fL (80.0-98.0); Mean Platelet Volume 9.3 fL (9.4-12.4); Platelet Count 184 X10*3/uL (160-400); Red Blood Count 5.42 X10*6/uL (4.60-5.80); Red Cell Distribution Width 12.1 % (11.0-16.0); White Blood Count 6.3 X10*3/uL (4.8-10.8)
[2024-08-20 09:01] LABS: INTERNATIONAL NORM RATIO 1.1 (0.9-1.1); Prothrombin Time 12.4 SEC (10.9-12.4)
[2024-08-20 09:16] LABS: Anion Gap 7 (12-20); Blood Urea Nitrogen 11 mg/dL (9-16); Calcium 9.8 mg/dL (8.4-10.2); Carbon Dioxide 30 mmol/L (22-29); Chloride 106 mmol/L (96-108); Estimated Glomerular Filt Rate > 60; Glucose Random 110 mg/dL (60-115); Potassium 4.3 mmol/L (3.3-5.1); Sodium 139 mmol/L (135-145)
== END 2024-08-20 07:53 | disposition home or self-care (01) ==
LOC: HO.LAB 07:52
PROVIDERS: PCP Internal Medicine; Visit Provider Internal Medicine Cardiovascular Disease
DX: R07.9 Chest pain, unspecified (principal); I48.0 Paroxysmal atrial fibrillation; R55 Syncope and collapse
CPT/HCPCS: 36415; 80048; 85027; 85610

== ENCOUNTER → 2024-08-21 23:59 | Outpatient (BNV) | payer MEDICARE, SELFPAY | PROVIDERS: PCP Internal Medicine; Visit Provider Internal Medicine Cardiovascular Disease | DX: R07.9 Chest pain, unspecified (principal) | CPT/HCPCS: 93458; 93571; 99152 ==

== ENCOUNTER → 2024-09-04 08:35 | Outpatient (BNVA) | payer MEDICARE, SELFPAY | PROVIDERS: Visit Provider Nurse Practitioner Family | DX: I10 Essential (primary) hypertension (principal); I25.10 Atherosclerotic heart disease of native coronary artery without angina pectoris; I48.0 Paroxysmal atrial fibrillation; E78.5 Hyperlipidemia, unspecified; R07.9 Chest pain, unspecified; E78.00 Pure hypercholesterolemia, unspecified; Z98.890 Other specified postprocedural states | CPT/HCPCS: 99212 ==

== ENCOUNTER 2024-09-05 08:01 | Outpatient (REF) | payer MEDICARE, SELFPAY ==
--- OUTSIDE RECORDS SUMMARY | 2024-09-05 08:06 | XMS_ITS | Encounter Summary ---
Author Organization [facility] Address [address] [place] [address] Care Team Providers Care Inside Sales Account Manager Name Role Phone Beth Knig MD Primary Care Provider [phone] Encounter Details Date Type Department Care Team ([facility] Contact Info) Description 08/22/2024 Telephone Gastroenterology - 299 [facility] [address] [facility] [address] [place] [phone] Jeremías Washington MD [address] [facility] [address] [place] [address] Social History Tobacco Use Types Packs/Day Years Used Date Smoking Tobacco: Former Cigarettes Alcohol Use Standard Drinks/Week Comments Not Currently 0 (1 standard drink = 0.6 oz pur e alcohol) Sex and Gender Information Value Date Recorded Sex Assigned at Not on file Gender Identity Not on file Sexual Orientation Not on file Job Start Date Occupation Industry Not on file Not on file Not on file documented as of this encounter Progress Notes * Kika Guerra - 08/22/2024 1:16 PM EST Pt is sched for m[facility]p 09/02/24 @ [facility], you are being cc'd Labs came back, CA29.9 was 67 labs done @[facility] documented in this encounter Plan of Treatment Upcoming Encounters Date Type Department Care Team ([facility] Contact Info) Description 09/09/2024 11:00 AM EST Hospital Encounter [facility] Endoscopy [address] [place] [address] Jeremías Washington MD [address] [address] documented as of this encounter Visit Diagnoses Not on filedocumented in this encounter Care Teams Inside Sales Account Manager Relationship Specialty Start Date End Date Beth King MD [address] [place] [address] PCP - General Internal Medicine 08/13/24 documented as of this encounter
--- OUTSIDE RECORDS SUMMARY | 2024-09-05 08:06 | XMS_ITS ---
Author Organization [facility] Address [address] [place] [address] Care Team Providers Care Correctional Guard Name Role Phone IZABELA GUERIN Unavailable [phone] REASON FOR VISIT mail cardiac iq result Encounters Encounter Location Date Provider Diagnosis [address] [facility] [address] [place] [address] 09/04/2024 IZABELA GUERIN PLAN OF TREATMENT Next Appt Details Provider Name:MULUGETA RAYGOZA, 10:30:00 AM, [address], [place], [address], Provider Name:IZABELA GUERIN, 10:45:00 AM, [address], [place], [address], Progress Notes * Romeo ARANDADOB:1955 ( 69 yo M)Acc No.[id number]:09/04/2024 Patient:??Romeo ARANDA :1955?Age:69 Y?Sex:Sadie grant Address:[address] [place] [address] * true * Date:??
--- OUTSIDE RECORDS SUMMARY | 2024-09-05 08:06 | XMS_ITS | Encounter Summary ---
Author Organization [facility] Address [address] [place] [address] Care Team Providers Care Product Designer Name Role Phone Beth King MD Primary Care Provider Encounter Details Date Type Department Care Team ([facility] st Contact Info) Description 09/03/2024 Telephone Gastroenterology - [address] [facility] [address] [place] [phone] Jeremías Washington MD [address] [place] [address] Social History Tobacco Use Types Packs/Day Years [...] as of this encounter Progress Notes * Jeremías Washington MD - 09/03/2024 12:27 PM EST Reviewed his MRI with him. 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 His CA 19-9 was slightly elevated. My thought would be to check his serologies if these are positive consider treating him and reimaging him and if these are negative consider an endoscopic ultrasound of his pancreas with possible biopsy * Marj Choudhury - 09/03/2024 11:32 AM EST PT CALLED TO CONFIRM THAT 01 RECEIVED THE IMAGING FROM [facility]. HE IS VERY CONCERNED BY IT AND WOULD LIKE THE DOC TO REVIEW IT AND CONTACT HIM. 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[facility]) 09/03/2024 2:07 PM EST Protein electrophoresis, serum Lab Routine Autoimmune pancreatitis ([facility]) 09/03/2024 2:07 PM EST Scheduled Orders Name Type Priority Associated Diagnoses Orde r Schedule 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 ([facility]/HCC) Expected: 09/03/2024, Expires: 09/03/2025 Protein electrophoresis, serum Lab Routine Autoimmune pancreatitis ([facility]) Expected: 09/03/2024, Expires: 09/03/2025 documented as of this encounter Results * C-reactive protein (09/03/2024 2:07 PM EST) C-Reactive Protein <0.29 <=0.50 mg/dL LAB CHEMISTRY METHOD 09/03/2024 3:47 PM EST [facility] Blood Venous blood specimen / Unknown Venipuncture / Unknown 09/03/2024 2:07 PM EST 09/03/2024 3:16 PM EST Jeremías Washington MD LAB BLOOD ORDERABLES [facility] [address] [place] [address], * STEPHENIE IFA with titer and pattern (09/03/2024 2:07 PM EST) STEPHENIE Negative Negative 09/04/2024 2:21 PM EST [facility] Blood Venous blood specimen / Unknown Venipuncture / Unknown 09/03/2024 2:07 PM EST 09/03/2024 3:16 PM EST Jeremías Washington MD LAB BLOOD ORDERABLES [facility] [address] [place] [address], documented in this encounter Visit Diagnoses Diagnosis Autoimmune pancreatitis (CMS/HCC)- Primary documented in this encounter Care Teams Product Designer Relationship Specialty Start Date End Date Beth King MD [address] [place] [address] PCP - General Internal Medicine 08/13/24 documented as of this encounter
--- OUTSIDE RECORDS SUMMARY | 2024-09-05 08:06 | XMS_ITS | Clinical Summary ---
Author Organization [facility] [address] Address [address] [place] [address] Phone Care Team Providers Care Sales Recruiter Name Role Phone Beth King MD Primary Care Provider [phone] Allergies Active Allergy Reactions Criticality Noted Date Comments Adhesive Wound 09/01/2024 blisters Medications Medication Sig Dispensed Refills Start Date End Date Status sildenafiL (VIAGRA) 100 mg tablet TAKE ONE TABLET BY MOUTH 1/2-1 HOUR BEFORE INTERCOURSE DIRECTED 06/18/2024 Active Xarelto 20 mg tablet TAKE 1 TABLET BY MOUTH EVERY DAY AT SUPPER Active Nitrostat 0.[address] 1 tablet (0.4 mg total) under the tongue. 07/31/2024 Active nitroglycerin (NITRODUR) 0.1 mg/hrIndications: prevention of anginal pain in coronary artery disease 1 (one) time each day if needed. 08/12/2024 Active lisinopriL (PRINIVIL,ZESTRIL ) 5 mg tablet Take 1 tablet (5 mg total) by mouth. 04/25/2024 Active atorvastatin (LIPITOR) 40 mg tablet Take 1 tablet (40 mg total) by mouth. 04/25/2024 Active cyanocobalamin (Vitamin B-12) 1,000 mcg tablet Daily, 0 Refills, Maintenance, 04/25/18 4:37:31 PM EDT 04/25/2018 Active aspirin 81 mg capsule 81 mg. 12/06/2011 Active metoprolol tartrate (LOPRESSOR) 25 mg tablet TAKE 1/2 TABLET BY MOUTH DAILY NEEDED FOR HEART RATE GREATER THAN 100 10/03/2023 Active diclofenac (VOLTAREN) 1 % topical gel APPLY 2 GRAMS TO THE AFFECTED AREA(S) BY TOPICAL ROUTE 2-3 TIMES PER DAY 04/11/2024 Active ciclopirox (LOPROX) 0.77 % cream 1 Application every 12 hours. Active omeprazole OTC (PriLOSEC OTC) 20 mg EC tablet Take 1 tablet (20 mg total) by mouth 1 (one) time each day. Do not crush, chew, or split. Active cyanocobalamin (Vitamin B-12) 1,000 mcg tablet Vitamin B12 09/01/2024 Discont inued (Duplicate order) Active Problems Problem Noted Date Diagnosed Date Other chest pain 08/13/2024 Encounters Date Type Department Care Team Description 09/03/2024 Telephone Gastroenterology - [address] [phone] Jeremías Washington MD 08/22/2024 Telephone Gastroenterology - [address] [address] Jeremías Washington MD 08/22/2024 Telephone Gastroenterology - [address] [phone] Jeremías Washington MD 08/13/2024 2:00 PM EST Office Visit Gastroenterology - [address] [phone] Jeremías Washington MD Other chest pain (Primary Dx) 07/29/2024 Telephone Gastroenterology - [address] [phone] Jeremías Washington MD from Last 3 Months [...] - Inhaled Oxygen Concentration - - Weight 81.6 kg (180 lb) 09/01/2024 11:00 AM EST Height 182.9 cm (6') 09/01/2024 11:00 AM EST Body Mass Index 24.41 09/01/2024 11:00 AM EST Plan of Treatment Upcoming Encounters Date Type Department Care Team (Late st Contact Info) Description 09/09/2024 11:00 AM EST Hospital Encounter [facility] Endoscopy [address] [place] [phone] Jeremías Washington MD [address] [address] Health Maintenance Due Date Last Done Comments [...] on patient's age to complete this topic Procedures Procedure Name Priority Date/Time Associated Diagnosis Comments PROTEIN, TOTAL Routine 09/03/2024 2:07 PM EST Autoimmune pancreatitis (CMS/HCC) C-REACTIVE PROTEIN Routine 09/03/2024 2: 07 PM EST Autoimmune pancreatitis (CMS/HCC) STEPHENIE IFA WITH TITER AND PATTERN Routine 09/03/2024 2:07 PM EST Autoimmune pancreatitis (CMS/HCC) EXTERNAL MRI REPORT 09/02/2024 EXTERNAL CLINICAL LAB 08/22/[address] REPORT 08/20/2024 from Last 3 Months Results * STEPHENIE IFA with titer and pattern (09/03/2024 2:07 PM EST) STEPHENIE Negative Negative 09/04/2024 2:21 PM EST [facility] Blood Venous blood specimen / Unknown Venipuncture / Unknown 09/03/2024 2:07 PM EST 09/03/2024 3:16 PM EST Jeremías Washington MD LAB BLOOD ORDERABLES [facility] [address] [place] [address], * C-reactive protein (09/03/2024 2:07 PM EST) C-Reactive Protein <0.29 <=0.50 mg/dL LAB CHEMISTRY METHOD 09/03/2024 3:47 PM EST [facility] Blood Venous blood specimen / Unknown Venipuncture / Unknown 09/03/2024 2:07 PM EST 09/03/2024 3:16 PM EST Jeremías Washington MD LAB BLOOD ORDERABLES Performing Organization Address [facility]/ZIP Co de Phone Number [facility] [address] [place] [address], * Protein, total (09/03/2024 2:07 PM EST) Total Protein 7.1 6.0 - 8.0 g/dL LAB CHEMISTRY METHOD 09/03/2024 3:49 PM EST [facility] Blood Venous blood specimen / Unknown Venipuncture / Unknown 09/03/2024 2:07 PM EST 09/03/2024 3:16 PM EST Jeremías Washington MD LAB BLOOD ORDERABLES Performing Organization Address [facility] Co de Phone Number [facility] [address] [place] [address], * External MRI Report (09/02/2024) Anatomical Region Laterality Modality Magnetic Resonan ce Provider [facility] MRI PROCEDUR ES * External clinical lab (08/22/2024) Provider [facility] BLOOD ORDERA BLES * External CT Report (08/20/2024) Anatomical Region Laterality Modality Computed Tomogra phy Provider [facility] CT PROCEDURE S from Last 3 Months Care Teams Sales Recruiter Relationship Specialty Start Date End Date Beth King MD [address] [place] [address] PCP - General Internal Medicine 08/13/24
--- OUTSIDE RECORDS SUMMARY | 2024-09-05 08:06 | XMS_ITS ---
Author Organization [facility] Address [address] [place] [address] Care Team Providers Care Special Client Bus Driver Name Role Phone IZABELA GUERIN Unavailable [phone] MULUGETA RAYGOZA Unavailable [phone] REASON FOR VISIT Fax Encounters Encounter Location Date Provider Diagnosis [facility] [address] [address] 09/04/2024 MULUGETA RAYGOZA PLAN OF TREATMENT Next Appt Details Provider Name:MULUGETA RAYGOZA, 10:30:00 AM, [address], [facility] [place], [address], Provider Name:VALENTÍNLAKIA TRUONG, 10:45:00 AM, [address], [facility] [place], [address], Progress Notes * Romeo ARANDADOB:1955 ( 69 yo M)Acc No.[id number]:09/04/2024 Patient:??Romeo ARANDA :1955?Age:69 Y?Sex:Sadie grant Address:[address] [place] [address] * * Date:??
--- OUTSIDE RECORDS SUMMARY | 2024-09-05 08:06 | XMS_ITS | Patient Health Record ---
Author Organization [facility] Address [address] [place] [address] Care Team Providers Care Computer Systems Analyst Name Role Phone IZABELA KING Unavailable [phone] STEVE KING Unavailable [phone] TERRA BJ Unavailable [phone] SCOOTERJAZMINKIMMIE Unavailable [phone] IDALMIS MULUGETA Unavailable [phone] ALLERGIES Allergen (clinical drug ingredient) Drug/Non Drug Allergy documented on EMR Reaction Allergy Type Onset Date Status Bee Sting swelling Allergy Active RESULTS Component Value Reference Range Notes LIPID PANEL, STANDARD Reviewed date:03/28/2024 11:14:55 AM Interpretation: Performing Lab:NL2, [employer] [facility] [address] Janene Campo Notes/Report: FASTING: NO FASTING:NO [...] LDL-C. Hi SALINAS et al. ANDRE. 2013;310(19): 1542-2076 (http://education.VOSS/faq/YUE084) CHOL/HDLC RATIO 2.4 <5.0 (calc) NON HDL CHOLESTEROL 72 <130 mg/dL (calc) For patients with diabetes plus 1 major ASCVD risk factor, treating to a non-HDL-C goal of <100 mg/dL (LDL-C of <70 mg/dL) is considered a therapeutic option. COMPREHENSIVE METABOLIC PANE L Reviewed date:03/28/2024 11:15:02 AM Interpretation: Performing Lab:RAKELAplica, [employer] [facility] Janene Campo Notes/Report: 0; 0; 0; [...] DIFF/PLT) Reviewed date:03/28/2024 11:14:55 AM Interpretation: Performing Lab:EVANGELISTA, [employer] [facility] Janene Campo Notes/Report: 0; 0; 0; 0; 0 FASTING:NO FASTING: NO WHITE BLOOD CELL COUNT 5.5 3.8-10.8 Thousand/uL RED BLOOD CELL COUNT 5.22 4.20-5.80 Million/uL HEMOGLOBIN 16.1 13.2-17.1 g/dL HEMATOCRIT 49.3 38.5-50.0 % MCV 94.4 80.0-100.0 fL MCH 30.8 27.0-33.0 pg MCHC 32.7 32.0-36.0 g/dL RDW 12.8 11.0-15.0 % PLATELET COUNT 188 140-400 Thousand/uL MPV 10.4 7.5-12.5 fL ABSOLUTE NEUTROPHILS 3366 2158-8523 cells/uL ABSOLUTE LYMPHOCYTES 2521 220-9259 cells/uL ABSOLUTE MONOCYTES 380 200-950 cells/uL ABSOLUTE EOSINOPHILS 39 15-500 cells/uL ABSOLUTE BASOPHILS 28 0-200 cells/uL NEUTROPHILS 61.2 LYMPHOCYTES 30.7 MONOCYTES 6.9 EOSINOPHILS 0.7 BASOPHILS 0.5 HEMOGLOBIN A1c Reviewed date:03/28/2024 11:15:52 AM Interpretation: Performing Lab:NL2, [employer] [facility] Janene Campo Notes/Report: 0; 0; 0; [...] change in test platforms from the Eli Gusset Maker to the Vincent serenity c503 may have shifted HbA1c results compared to historical results. Based on laboratory validation testing conducted at [facility], the Vincent platform relative to the Eli [...] Reviewed date:03/28/2024 11:15:02 AM Interpretation: Performing Lab:NL2, [employer] [facility] Janene Campo Notes/Report: 0; 0; 0; [...] D, (D2,D3), LC/MS/MS is recommended: order code 45031 (patients >2yrs). See Note 1 Note 1 For additional information, please refer to http://education.[employer]/faq/JGI192 (This link is being provided for informational/ educational purposes only.) CA [id number] Reviewed date:08/22/2024 12:45:57 PM Interpretation: Performing Lab:[facility] [address], Phone - [phone], Director - Gus Notes/Report: CA 19-9 67 0-35 U/mL [employer] Electrochemiluminescence Immunoassay (ECLIA) . Values obtained with different assay methods or kits cannot be used interchangeably. Results cannot be interpreted as absolute evidence of the presence or absence of malignant disease. US Extremity Nonvasc Ltd Reviewed date:11/29/2023 02:01:21 PM Interpretation: Performing Lab: Notes/Report: Original Ordering Provider: BJ ELLISON (EMERY) [facility] Amylase-[id number] Reviewed date:08/21/2024 12:02:28 PM Interpretation: Performing Lab:[facility] [address], Phone - [phone], Director - Harleydry Notes/Report: Amylase 39 31-110 U/L Lipase-[id number] Reviewed date:08/21/2024 12:02:28 PM Interpretation: Performing Lab:[facility] [address], Phone - [phone], Director - Harleydry Notes/Report: Lipase 34 13-78 U/L PROTEIN, TOTAL (Not yet revi ewed by provider) Interpretation: Performing Lab: Notes/Report: Total Protein 7.1 6.0-8.0 g/dL C-REACTIVE PROTEIN (Not yet reviewed by provider) Interpretation: Performing Lab: Notes/Report: C-Reactive Protein <0.29 <=0.50 mg/dL STEPHENIE IFA WITH JAX AND ERLINDA RN (Not yet reviewed by provider) Interpretation: Performing Lab: Notes/Report: STEPHENIE Negative Negative REASON FOR REFERRAL Reason Colonoscopy with [facility] ss GI Diagnosis 1 Encounter for screen ing for malignant neoplasm of colon (Z12.11) Referral Organization [facility] Referring Provider First Name VALENTÍNLAKIA Referring Provider Last Name KING Referring Provider Speciality Internal edicine Referred Provider Specialty Gastroentero logy General Notes [facility] [address] [facility] 419, [phone] Clinical Notes Beverley Romero 2023 04:19:11 PM [...] malignant neoplasm of colon (Z12.11) Referral Organization [facility] Referring Provider First Name [...] 1 tablet Orally Once a day for 90 days Active Nitroglycerin 0.4 MG 1 tablet under [...] (D03.8) Active confirmed Melanoma in sit u (73626350) Problem Vitamin D deficiency, unspecified (E55.9) Active confirmed 05111491 Problem Essential (primary) hypertension (I10) Active confirmed Essential hypertension (74183310) Problem Encounter for general adult medical examination without abnormal findings (Z00.00) Active confirmed 755164531 Problem Encounter for screening for malignant neoplasm of colon (Z12.11) Active confirmed 286653515 Problem Encounter for screening for diabetes mellitus (Z13.1) Active confirmed 226922289 Problem Encounter for screening for lipoid disorders (Z13.220) Active confirmed 901219853 Problem Encounter for screening for cardiovascular disorders (Z13.6) Active confirmed 370696143 Problem Chronic anticoagulation (Z79.01) Active confirmed Use of anticoagulation (664422207) Problem Coronary artery disease involving pit river coronary artery of pit river heart without angina pectoris (I25.10) Active confirmed Atherosclerotic heart disease of pit river coronary artery without angina pectoris (582125291125119) Problem Coronary artery disease, unspecified vessel or lesion type, unspecified whether angina present, unspecified whether pit river or transplanted heart (I25.10) Active confirmed Atherosclerotic heart disease of pit river coronary artery without angina pectoris (061366543304087) Problem Hyperlipidemia, mixed (E78.2) Active confirmed Mixed hyperlipidemia (611770997) Problem Benign essential hypertension (I10) Active confirmed Benign es sential hypertension (2248386) Problem Atrial fibrillation (I48.91) Active confirmed Atrial fibrillation (75109530) Problem Leg mass, right (R22.41) Active confirmed 427678404 Problem Muscle rupture (T14.8XXA) Active confirmed 033172588 Problem Implantable loop recorder present (Z95.818) Active confirmed Implantable loo p recorder present (2158870893) Problem Light headed (R42) Active confirmed 386 984722 VITAL SIGNS Heart Rate 61 /min 08/06/2024 Oximetry 97 % 08/06/2024 Blood pressure diastolic 78 mm Hg 08/06/2024 Height 72 in 08/06/2024 Blood pressure systolic 126 mm Hg 08/06/2024 Weight 186.8 lbs 08/06/2024 BMI 25.33 kg/m2 08/06/2024 Encounters Encounter Location Date Provider Diagnosis [facility] [address] [place] [address] 07/09/2024 IZABELA KING [facility] [address] [place] [address] 08/14/2024 KIMMIE HELMS [facility] [address] [place] [address] 10/24/2023 IZABELA KING Coronary artery dise ase involving pit river coronary artery of pit river heart without angina pectoris I25.10 ; Atrial fibrillation I48.91 ; Benign essential hypertension I10 and Hyperlipidemia, mixed E78.2 [facility] [address] [place] [address] 11/23/2023 BJ ELLISON Leg mass, right R22. 41 ; Atrial fibrillation I48.91 and Chronic anticoagulation Z79.01 [facility] [address] [place] [address] 04/01/2024 IZABELA KING Coronary artery dise ase involving pit river coronary artery of pit river heart without angina pectoris I25.10 ; Over weight E66.3 ; Prediabetes R73.03 ; BMI 26.0-26.9,adult Z68.26 and Hyperlipidemia, mixed E78.2 [facility] [address] [place] [address] 07/09/2024 IZABELA KING Adult general medica l exam Z00.00 and Prediabetes R73.03 [facility] [address] [place] [address] 07/18/2024 MULUGETA RAYGOZA Hospital discharge follow-up Z09 ; Coronary artery disease involving pit river coronary artery of pit river heart without angina pectoris I25.10 ; Atrial fibrillation I48.91 ; Hyperlipidemia, mixed E78.2 ; Chronic anticoagulation Z79.01 ; Implantable loop recorder present Z95.818 and Light headed R42 [facility] [address] [place] [address] 08/06/2024 KIMMIE HELMS Essential (primary) hypertension I10 ; Intermittent chest pain R07.9 ; Coronary artery disease, unspecified vessel or lesion type, unspecified whether angina present, unspecified whether pit river or transplanted heart I25.10 ; Hyperlipidemia, mixed E78.2 ; Chronic anticoagulation Z79.01 and Atrial fibrillation I48.[address] [place] [address] 09/04/[address] [place] [address] 11/09/2023 [facility] [address] [place] [address] 11/15/2023 VALENTÍNLAKIA KING [address] [place] [address] 07/03/[address] [place] [address] 07/07/2024 [facility] [address] [place] [address] 07/16/2024 [facility] [address] [place] [address] 07/18/[address] [place] [address] 07/18/2024 MULUGETA IDALMIS [facility] [address] [place] [address] 08/01/2024 IZABELA KING [address] [place] [address] 08/04/2024 IZABELA KING [address] [place] [address] 08/12/2024 KIMMIE HELMS Renal lesion N28.9 [address] [place] [address] 08/18/2024 MULUGETA VALENTINR Renal cyst N28.1 and Pancreatic mass K86.89 [address] [place] [address] 08/20/[address] [place] [address] 08/22/[address] [place] [address] 08/22/[address] [facility] [address] [place] [address] 08/25/[address] [place] [address] 09/04/[address] [facility] [address] [place] [address] 10/23/[address] [facility] [address] [place] [address] 07/09/[address] [facility] [address] [place] [address] 07/09/[address] [place] [address] 08/19/2024 VALENTÍNLAKIA TRUONG ASSESSMENTS Encounter Date Diagnosis Assessment Notes Treatment Notes Treatment Clinical Notes Section Notes 10/24/2023 Coronary artery disease involving pit river coronary artery of pit river heart without angina pectoris (ICD-10 - I25.10) [...] blood work/physical. 04/01/2024 Coronary artery disease involving pit river coronary artery of pit river heart without angina pectoris (ICD-10 - I25.10) [...] Dictation was accomplished with the use of [employer] voice recognition software, prone to medical misidentifications [...] Dictation was accomplished with the use of [employer] voice recognition software, prone to medical misidentifications [...] log exercise and discussed fitness Apps like [employer] which can help keep log off calories [...] log exercise and discussed fitness Apps like [employer] which can help keep log off calories [...] osteoarthritis, coronary artery disease, 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 #Hospital course:The patient presented to [facility] on 07/14 for a chief complaint [...] is 104/56, he is to call his buttonhole tacker to discuss this further. The patient admits to the buttonhole tacker and previous providers have not prescribed Lasix in the past, therefore I am uncomfortable doing this at this time. #Lightheadedness: Patient would benefit from a bilateral carotid ultrasound, order placed today. Differential at this time includes carotid artery stenosis, atherosclerosis of cartoid arteries. #Hypertension: Patient and I discussed blood pressure management, he is to touch based with his buttonhole tacker as they monitor his blood pressure medication. The patient is currently taking lisinopril 5 mg tablets, however patient's blood pressure in office today is 104/56, which has been the lowest reading thus far. Previous readings in [facility] have been around 140 systolic. #Hyperlipidemia: Continue [...] Dictation was accomplished with the use of Snapstream voice recognition software, which is prone to medical misidentifications and grammatical errors. This are unintentional and the practitioner does try to identify and correct these, but some could still be present. Please do not hesitate to contact practitioner for clarification. 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 #Hospital course:The patient presented to [facility] on 07/14 for a chief complaint [...] is 104/56, he is to call his buttonhole tacker to discuss this further. The patient admits to the buttonhole tacker and previous providers have not prescribed Lasix in the past, therefore I am uncomfortable doing this at this time. #Lightheadedness: Patient would benefit from a bilateral carotid ultrasound, order placed today. Differential at this time includes carotid artery stenosis, atherosclerosis of cartoid arteries. #Hypertension: Patient and I discussed blood pressure management, he is to touch based with his buttonhole tacker as they monitor his blood pressure medication. The patient is currently taking lisinopril 5 mg tablets, however patient's blood pressure in office today is 104/56, which has been the lowest reading thus far. Previous readings in [facility] have been around 140 systolic. 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 #Of note patient was previously seen at [facility] from 07/14 - 07/15 for lightheadedness, [...] was unable to process blood work. Search [facility] with no success in finding blood work [...] with cardiology outpatient. Patient scheduled to see [facility] cardiology for this 08/09/2024. # Patient today [...] post cardioversion and ablation 05/23/2024. Patient has [employer], which will alert regarding any arrhythmias detected. 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 #Of note patient was previously seen at [facility] from 07/14 - 07/15 for lightheadedness, [...] was unable to process blood work. Search [facility] with no success in finding blood work [...] with cardiology outpatient. Patient scheduled to see [facility] cardiology for this 08/09/2024. # Patient today [...] Dictation was accomplished with the use of [employer] voice recognition software, prone to medical misidentifications [...] type, unspecified whether angina present, unspecified whether pit river or transplanted heart (ICD-10 - I25.10) Romeo is a pleasant 69-year-old male present today for hospital follow-up. 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 #Of note patient was previously seen at [facility] from 07/14 - 07/15 for lightheadedness, [...] was unable to process blood work. Search [facility] with no success in finding blood work [...] with cardiology outpatient. Patient scheduled to see [facility] cardiology for this 08/09/2024. # Patient today [...] post cardioversion and ablation 05/23/2024. 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 #Hospital course:The patient presented to [facility] on 07/14 for a chief complaint [...] is 104/56, he is to call his buttonhole tacker to discuss this further. The patient admits to the buttonhole tacker and previous providers have not prescribed Lasix in the past, therefore I am uncomfortable doing this at this time. #Lightheadedness: Patient would benefit from a bilateral carotid ultrasound, order placed today. Differential at this time includes carotid artery stenosis, atherosclerosis of cartoid arteries. #Hypertension: Patient and I discussed blood pressure management, he is to touch based with his buttonhole tacker as they monitor his blood pressure medication. The patient is currently taking lisinopril 5 mg tablets, however patient's blood pressure in office today is 104/56, which has been the lowest reading thus far. Previous readings in [facility] have been around 140 systolic. 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 #Of note patient was previously seen at [facility] from 07/14 - 07/15 for lightheadedness, [...] was unable to process blood work. Search [facility] with no success in finding blood work [...] with cardiology outpatient. Patient scheduled to see [facility] cardiology for this 08/09/2024. 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 #Hospital course:The patient presented to [facility] on 07/14 for a chief complaint [...] is 104/56, he is to call his buttonhole tacker to discuss this further. The patient admits to the buttonhole tacker and previous providers have not prescribed Lasix in the past, therefore I am uncomfortable doing this at this time. #Lightheadedness: Patient would benefit from a bilateral carotid ultrasound, order placed today. Differential at this time includes carotid artery stenosis, atherosclerosis of cartoid arteries. #Hypertension: Patient and I discussed blood pressure management, he is to touch based with his buttonhole tacker as they monitor his blood pressure medication. The patient is currently taking lisinopril 5 mg tablets, however patient's blood pressure in office today is 104/56, which has been the lowest reading thus far. Previous readings in [facility] have been around 140 systolic. 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 #Of note patient was previously seen at [facility] from 07/14 - 07/15 for lightheadedness, [...] was unable to process blood work. Search [facility] with no success in finding blood work [...] with cardiology outpatient. Patient scheduled to see [facility] cardiology for this 08/09/2024. # Patient today [...] post cardioversion and ablation 05/23/2024. 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 #Hospital course:The patient presented to [facility] on 07/14 for a chief complaint [...] is 104/56, he is to call his buttonhole tacker to discuss this further. The patient admits to the buttonhole tacker and previous providers have not prescribed Lasix in the past, therefore I am uncomfortable doing this at this time. #Lightheadedness: Patient would benefit from a bilateral carotid ultrasound, order placed today. Differential at this time includes carotid artery stenosis, atherosclerosis of cartoid arteries. #Hypertension: Patient and I discussed blood pressure management, he is to touch based with his buttonhole tacker as they monitor his blood pressure medication. The patient is currently taking lisinopril 5 mg tablets, however patient's blood pressure in office today is 104/56, which has been the lowest reading thus far. Previous readings in [facility] have been around 140 systolic. 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 #Hospital course:The patient presented to [facility] on 07/14 for a chief complaint [...] is 104/56, he is to call his buttonhole tacker to discuss this further. The patient admits to the buttonhole tacker and previous providers have not prescribed Lasix in the past, therefore I am uncomfortable doing this at this time. #Lightheadedness: Patient would benefit from a bilateral carotid ultrasound, order placed today. Differential at this time includes carotid artery stenosis, atherosclerosis of cartoid arteries. #Hypertension: Patient and I discussed blood pressure management, he is to touch based with his buttonhole tacker as they monitor his blood pressure medication. The patient is currently taking lisinopril 5 mg tablets, however patient's blood pressure in office today is 104/56, which has been the lowest reading thus far. Previous readings in [facility] have been around 140 systolic. 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 #Of note patient was previously seen at [facility] from 07/14 - 07/15 for lightheadedness, tightness in chest and swollen ankles with full cardiac workup which was unremarkable. Patient followed by cardiology. Patient was seen in office for hospital follow-up following this discharge in which carotid ultrasound as well as bloodwork was ordered. Carotid ultrasound not obtained. Blood work obtained, but patient reports [employer] had technical difficulties with diagnosis codes and was unable to process blood work. Search [employer] with no success in finding blood work [...] with cardiology outpatient. Patient scheduled to see [facility] cardiology for this 08/09/2024. # Patient today [...] post cardioversion and ablation 05/23/2024. Patient has Smart[employer] Watch, which will alert regarding any arrhythmias [...] Dictation was accomplished with the use of Snapstream voice recognition software, prone to medical misidentifications and grammatical errors. This is unintentional and the practitioner does try to identify and correct these, but some could still be present. Please do not hesitate to contact practitioner for clarification. 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 #Hospital course:The patient presented to [facility] on 07/14 for a chief complaint [...] is 104/56, he is to call his buttonhole tacker to discuss this further. The patient admits to the buttonhole tacker and previous providers have not prescribed Lasix in the past, therefore I am uncomfortable doing this at this time. #Lightheadedness: Patient would benefit from a bilateral carotid ultrasound, order placed today. Differential at this time includes carotid artery stenosis, atherosclerosis of cartoid arteries. #Hypertension: Patient and I discussed blood pressure management, he is to touch based with his buttonhole tacker as they monitor his blood pressure medication. The patient is currently taking lisinopril 5 mg tablets, however patient's blood pressure in office today is 104/56, which has been the lowest reading thus far. Previous readings in [facility] have been around 140 systolic. #Hyperlipidemia: Continue [...] Dictation was accomplished with the use of Snapstream voice recognition software, which is prone to [...] 1 09/09/2023 CARDIO IQ(R) DIRECT LDL 07/09/2024 PROTEIN, TOTAL 09/03/2024 C-REACTIVE PROTEIN 09/03/2024 STEPHENIE IFA WITH TITER AND PATTERN Next Appt Details Provider Name:MULUGETA RAYGOZA, 10:30:00 AM, [address], [place], [address], Provider Name:IZABELA KING, 10:45:00 AM, [address], [place], [address], Insurance Providers Payer Name Payer Address Payer Phone Subscriber Number Group Number Insured Name Patient Relationship to Insured Coverage Start Date Coverage End Date Medicare Part B [facility] [address] [place] [phone] [id number] Romeo Aranda Self - patient is the insured 9 [employer] [address] [place] [address] [phone] [id number] Romeo Aranda Self - patient is the insured 9 MEDICAL (GENERAL) HISTORY Medical History History ICD Code Essential (primary) hypertension I10 Atrial fibrillation I48.91 Hyperlipidemia E78.5 BPH without urinary obstruction N40.0 Osteoarthritis M19.90 Coronary artery disease, uns pecified vessel or lesion type, unspecified whether angina present, unspecified whether [place] or transplanted heart I25.10 Melanoma in situ of other sites D03.8 Surgical History Surgery Date(Month/Year) Cholecystectomy Loop recorder Cardiac ablation S Dr. Rebolledo Apr 2024 Hospitalization History Reason Date(Month/Year) Atrial fibrillation (Cardiology- Dr. Cui ty) 2022 Heart Attack (stent) 2000
--- OUTSIDE RECORDS SUMMARY | 2024-09-05 08:06 | XMS_ITS | Encounter Summary ---
Author Organization [facility] [employer] Address [address] [place] [address] Care Team Providers Care Rotary Saw Operator Name Role Phone Beth King MD Primary Care Provider [phone] Encounter Details Date Type Department Care Team ([facility] st Contact Info) Description 08/22/2024 Telephone Gastroenterology - [address] [facility] [address] [place] [phone] Jeremías Washington MD [address] [place] [address] Social History Tobacco Use Types Packs/Day Years [...] Progress Notes * Jeremías Washington MD - 08/22/2024 7:10 AM EST Yesterday he did have a cardiac catheterization at the [facility]. I did review that in the [facility] records and basically it was unremarkable he did not find a cause for his symptoms basically their conclusion was patient's symptoms are not explained by coronary disease. I spoke with him on the phone today (I actually called him yesterday as well) He had had a CAT scan for renal lesion the question some fatty infiltration along the distal marginof the pancreas and the question pancreatitis. His symptoms really are not consistent with pancreatitis and a previous CT was negative. On the other hand they are ordering an MRI. Going forward there are 2 tests I had wanted to do. I asked him to call [facility] to make sure that they are going to do an MRCP and check his bile ducts.He has had a cholecystectomy. I also recommended an upper endoscopy and discussed this with him in terms of risks and benefits and the procedure itself and he is in agreement we will set this up documented in this encounter Plan of Treatment Upcoming Encounters Date Type Department Care Team (Late st Contact Info) Description 09/09/2024 11:00 AM EST Hospital Encounter [facility] Endoscopy [address] [place] [address] Jeremías Washington MD [address] [address] documented as of this encounter Visit Diagnoses Not on filedocumented in this encounter Care Teams Rotary Saw Operator Relationship Specialty Start Date End Date Beth King MD [address] [place] [address] PCP - General Internal Medicine 08/13/24 documented as of this encounter
--- OUTSIDE RECORDS SUMMARY | 2024-09-05 08:07 | XMS_ITS ---
Author Organization [facility] Address [address] [place] [address] Care Team Providers Care Mailroom Manager Name Role Phone IZABELA GUERIN Unavailable [phone] MEDICATIONS Medication SIG (Take, Route, Fr equency, Duration) Notes Start Date End Date Status Lisinopril 5 MG 1 tablet Orally Once a day for 90 days Active Encounters Encounter Location Date Provider Diagnosis [facility] [address] [place] [address] 08/25/2024 VALENTÍNLAKIA TRUONG PLAN OF TREATMENT Medication Medication Name Sig Start Date Stop Date Notes Lisinopril 5 MG 1 tablet Orally Once a day for 90 days Next Appt Details Provider Name:MULUGETA RAYGOZA, 10:30:00 AM, [address] , [place], [address], Provider Name:VALENTÍNLAKIA TRUONG, 10:45:00 AM, [address], [place], [address], Progress Notes * Romeo ARANDADOB:1955 ( 69 yo M)Acc No.[id number]:08/25/2024 Patient:??Romeo ARANDA :1955?Age:69 Y?Sex:Sadie grant Address:[address] [place] [address] * Refills?? Refill Lisinopril Tablet, 5 MG, Orally, 90 Tablet, 1 tablet, Once a day, 90 days, Refills=0 * true * Date:??
--- OUTSIDE RECORDS SUMMARY | 2024-09-05 08:07 | XMS_ITS | Patient Health Record ---
Author Organization [facility] Uyen Lopez Address [address] [place] [address] Care Team Providers Care Supervisor Looping Name Role Phone Dorys Tenorio PA-C Primary Care Provider Jessica Beckett Danelle Unavailable [phone] Allergies No Known Allergies Reason For Referral [...] Medicare National [employer] [address] [place] [address] [id number] Romeo Aranda Self - patient is the insured [employer] [address] [place] [address] [phone] [id number] Romeo Aranda Self - patient is the insured Medical (General) History Medical History History ICD Code Angina Arthritis Back,Hip,and Knee pain Broken bones Cholesterol Cancer covid-19 Diverticulosis Gall bladder problems Measles Mumps Chicken pox Surgical History Surgery Date(Month/Year) gall bladder surgery 2001 Stent surgery 2000
--- OUTSIDE RECORDS SUMMARY | 2024-09-05 08:07 | XMS_ITS | Encounter Summary ---
Author Organization [facility] Address [address] [place] [address] Care Team Providers Care Furnace Brazer Name Role Phone Beth King MD Primary Care Provider [phone] Reason for Visit * Reason Comments Chest Pain Tight chest radiatin g down chest Heart attack 2000 and stent placedNot cardiac issue Encounter Details Date Type Department Care Team (Late st Contact Info) Description 08/13/2024 2:00 PM EST Office Visit Gastroenterology - [address] [place] [phone] Jeremías Washington MD [address] [place] [id number] Other chest pain (Primary Dx) Social History [...] artery disease, history of an anterior wall [place] 2000 status post PCI to the LAD. He has a history of atrial fibrillation. Intermittent pver past three years. In July 2023 went into it, echo in September. His last cardioversion and ablation was in April. Since ablation no evidence of a fib. He has had chest pain described as tightness intermittent nonradiating. He is followed by [facility] cardiology. Of note is that during her recent admission he did have a CTof the chest abdomen pelvis which was just negative for aortic dissection. There was a question of an determinate he had been admitted to the [facility] earlier in June where a stress echo showed no EKG evidence of any ischemia. He was last seen by [facility] cardiology August 09. Interestingly his abdominal discomfort symptomswere relieved by nitroglycerin. But the isosorbide made his symptoms worse so he discontinued this medication. The chest pain does not occur with exertion. [facility] cardiology suggested the possibility of esophageal spasm. They discussed the possible calcium jim. They started her on amlodipine 5 mg a day. He is presenting to me with noncardiac chest pain. Goes back to mid June. Was feeling great. Holiday libertarian on the 11 of July, a libertarian with all sorts of food. Next day more fatigue, lightheaded, chest pains, random. Not a crushing pressure. Much less energy, lightheaded, chest pains come and go. Chest pains intermittent, mostly later in day, evening. Worse in evening (not associated with stress or activity.) Nitro helped. Isosorbide, as above,made it worse. Then prescribed Amlodipine 5 mg. Didn't take it. Entry Level Assistant Manager recommended half dose, and this made symptoms worse. Radiated to abdomen. Nitro patch working. Pains not always the same. On left and right. Low level. NO relationship to eating. Maybe worse with position. (CPAP at night) No heartburn. No indigestion. Bowels fairly normal. No blood in stool. No weight loss. GB out. Colonoscopy age 59 Dr. Hawkins. Diverticulosis. Labs from July from [facility] showed a normal CBC. His last liver tests were in June and werecompletely normal. CT angiography from August 23 showed no abdominal pathology. And with oral contrast however. Stress echo was normal as well. He goes now to [facility], and going for a cath on . Pre-diabetic, ANGELICA, Spot on kidney (CT booked.) PCP has scheduled for echo carotids GB removed in 2000. Vitamin B12 came into picture 8-10 years ago. Issues with memory. Saw multiple doctors, but told B12 low. Low normal range. Medications include aspirin atorvastatin nitro patch, lisinopril Nitrostat Xarelto and vitamin B12. 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 Social History Socioeconomic History Marital [...] new radiology results/studies: US EXTREMITY NONVASC LTD [facility] Diagnostic Imaging Department [address] [place] [address] Patient: MILES ARANDA./Age/Sex: 1955 - 68 - M Unit#: [id number] Location/Status: SPDIUS/REG CLI Mnemonic/Ordering Site: USEXNVLTD/SPUS Ordering Physician: BJ ELLISON PA-C (EMERY) US Extremity Nonvasc Ltd - 11/27/23 - [...] Description 09/09/2024 11:00 AM EST Hospital Encounter [facility] Endoscopy [address] [place] [phone] Jeremías Washington MD [address] [address] documented as of this encounter Visit Diagnoses [...] total) by mouth. 04/25/2024 nitroglycerin (NITRODUR) 0.1 mg/hrIndications:preven tion of anginal pain in coronary artery disease 1 (one) time each day if needed. 08/12/2024 Nitrostat 0.[address] 1 tablet (0.4 mg total) under the tongue. 07/31/2024 Xarelto 20 mg tablet TAKE 1 TABLET BY MOUTH EVERY DAY AT SUPPER sildenafiL (VIAGRA) 100 mg tablet TAKE ONE TABLET BY MOUTH 1/2-1 HOUR BEFORE INTERCOURSE DIRECTED 06/18/2024 added in this encounter Care Teams Furnace Brazer Relationship Specialty Start Date End Date Beth King MD [address] [place] [address] PCP - General Internal Medicine 08/13/24 documented as of this encounter
[2024-09-05 08:55] LABS: Cholesterol 112 mg/dL (<200); HDL Cholesterol 38 mg/dL (>40); LDL Cholesterol Calculated 59 mg/dL (<100); Triglycerides 75 mg/dL (<150)
== END 2024-09-05 08:02 | disposition home or self-care (01) ==
LOC: HO.LAB 08:01
PROVIDERS: PCP Internal Medicine; Visit Provider Nurse Practitioner Family
DX: E78.00 Pure hypercholesterolemia, unspecified (principal)
CPT/HCPCS: 36415; 80061

== ENCOUNTER → 2025-01-26 10:57 | Outpatient (REF) | payer MEDICARE, SELFPAY ==
--- OUTSIDE RECORDS SUMMARY | 2024-11-12 06:45 | XMS_ITS ---
Author Organization [facility] [address] Address [address] [place] [address] Care Team Providers Care Reservations Clerk Name Role Phone IZABELA GUERIN Unavailable [phone] Encounters Encounter Location Date Provider Diagnosis [facility] [address] [place] [address] 11/12/2024 IZABELA GUERIN Plan Of Treatment Next Appt Details Provider Name:MULUGETA VALENTINR, 10:00:00 AM, [address] , [place], [address], Progress Notes * Romeo ARANDADOB:1955 ( 69 yo M)Acc No.[id number]:11/12/2024 Progress Notes Patient: Romeo JONES Provider: Jonathon GUERIN MD :1955 A ge:69 Y S ex:Male Date:11/12/2024 Address:[address], [place] Subjective: * Chief Complaints: * * Medical History: Objective: * Vitals: Assessment: Plan: * Treatment: * Images: Billing Information: * Visit Code: * Procedure Codes: Care Plan Details* * Electronic signature of BENOIT GUERIN on 01/26/2025 at 11:48 AM EDT Sign off status: Pending * Provider: Jonathon GUERIN MD Date: 11/12/2024 Generated for Erika markham/Flor/eTnunoitting on: 01/26/2025 11:48 AM EDT
--- NOTE | 2025-01-26 10:59 | CA_ITS ---
Transthoracic Echocardiogram Patient (Last, First, Middle): Romeo Aranda, Gender: Male Date of : 1955 Age: 69 Procedure Date: 01/26/2025 Procedure Type: Transthoracic Echocardiogram Location: OP Height: 182.88 cm Weight: 84.37 kg BSA: 2.07 m2 Heart Rate: bpm BP: 124 / 62 mmHg Lehr Cutter: LIZA Referring MD: Mayi Moffett WORKER'S COMPENSATION CLAIMS EXAMINER-Georgina Symptoms: I25.10 - Atherosclerotic heart disease of [place] coronary artery without... Study Quality: Fair Conclusions: - 1. Normal LV ejection fraction 55-60% with underlying regional wall motion abnormalities suggestive of coronary artery disease 2. [id number]-pnonevvl aortic regurgitation 3. Mildly dilated ascending aorta at 3.7 cm 4. Normal RV systolic pressure 5. No gross pericardial effusion Findings Left Ventricle Normal left ventricular size, thickness, and systolic function. The visually estimated ejection fraction is between 55-60%. Spectral Doppler is indicative of a normal filling pattern. Wall Motion Rest Echo Findings The inferoseptal wall and mid inferior segment are hypokinetic. The basal inferior segment is akinetic. All other scored wall segments showed normal motion. Right Ventricle Normal right ventricular cavity size and systolic function. Atria The left atrium is moderately dilated. There is no evidence of interatrial shunt. The right atrium is normal in size. Aortic Valve Normal aortic valve structure and function. There is no aortic valve stenosis. There is mild to moderate aortic valve regurgitation. Mitral Valve Normal mitral valve structure and function. There is trace mitral valve regurgitation. There is no mitral valve stenosis. Pulmonic Valve The pulmonic valve is likely normal. Tricuspid Valve Normal tricuspid valve structure. There is mild tricuspid valve regurgitation. The right ventricular systolic pressure is normal. The right ventricular systolic pressure is 26 mmHg. Normal right atrial pressure. There is no evidence of pulmonary hypertension. Great Vessels The pulmonary artery was not well visualized. There is mild dilatation of the ascending aorta measuring 3.70 cm. Small plaque is seen in the sino tubular ridge. Venous The inferior vena cava is normal in size and collapses greater than 50% with inspiration. Pericardium/Pleural There is no evidence of pericardial effusion. Prior Study Comparison No significant change compared to prior study dated: 09/10/2020. Measurements 2D Linear Measurements IVSd: 1.08 0.6-0.9/0.6-1.0 cm LVIDd: 5.26 3.9-5.3/4.2-5.9 cm LVIDd Index: 2.54 2.4-3.2/2.2-3.1 cm/m2 LVIDs: 3.55 2.0-3.6 cm LVPWd: 0.98 0.7-1.1 cm LA Diam: 3.40 2.7-3.8/3.0-4.0 cm LAIDs Index: 1.64 1.5-2.3 cm/m2 LV Mass: 256.73 67-162/88-224 g LV Mass Index: 124.02 43-95/49-115 g/m2 LVOT Diam: 2.00 3.0+(-)1.3 cm 2D Systolic Function EF 4C: 60.80 >55% EF 2C: 58.60 >55% EF BiP: 59.90 >55% Mitral Valve MV Pk E: 0.74 MV PK A: 0.56 MV Decel Time: 252.00 E/A: 1.30 E'Lateral: 7.62 E'Medial: 5.44 E/E' Med: 13.60 E/E' Lat: 9.70 PHT: 74.00 MVA PHT: 2.97 Decel [place]: 2.94 Aortic Valve AoV Pk Maximino: 1.51 AoV Mn Maximino: 1.04 AoV VTI: 0.36 AoV Pk Grad: 9.00 Aov Mn Grad: 5.00 SEBASTIAN Cont.VTI: 2.31 LVOT LVOT Pk Maximino: 1.08 LVOT Mn Maximino: 0.73 LVOT VTI: 0.26 LVOT Pk Grad: 5.00 LVOT Mn Grad: 2.00 LVOT Diam: 2.00 LVOT Area: 3.14 Diastolic Function MV Pk E: 0.74 MV Pk A: 0.56 E/A: 1.30 E'Medial: 5.44 E/E' Med: 13.60 E' Laterial: 7.62 E/E' Lat: 9.70 Right Ventricle TAPSE (mm): 22.60 TVS' Maximino: 15.30 Tricuspid Valve TR Pk Maximino: 2.42 TR Pk Grad: 23.00 RA Press: 3.00 RVSP: 26.00 Great Vessels Aorta Sinus of Valsalva: 3.95 2.0-3.[address] Ridge: 3.13 1.7-3.4 cm Ao Asc: 3.70 2.1-3.4 cm Ao Arch: 3.10 Updated in Other Vendor System with Status of Final Giovanni Singleton MD electronically signed on 01/26/2025 12:32:07 PM with status of Final
== END ==
LOC: HO.CARD 10:57
PROVIDERS: PCP Internal Medicine; Visit Provider Nurse Practitioner Family
DX: I25.10 Atherosclerotic heart disease of native coronary artery without angina pectoris (principal)
CPT/HCPCS: 93306

== ENCOUNTER → 2025-01-26 10:59 | Outpatient (BNV) | payer MEDICARE, SELFPAY | PROVIDERS: PCP Internal Medicine; Visit Provider Internal Medicine Cardiovascular Disease | DX: I35.1 Nonrheumatic aortic (valve) insufficiency (principal); I25.110 Atherosclerotic heart disease of native coronary artery with unstable angina pectoris | CPT/HCPCS: 93306 ==

== ENCOUNTER 2025-02-09 09:44 | Outpatient (AMB) | payer MEDICARE, SELFPAY ==
--- OUTSIDE RECORDS SUMMARY | 2024-11-12 06:45 | XMS_ITS ---
Author Organization [facility] [address] Address [address] [place] [address] Care Team Providers Care Glove Boarder Name Role Phone IZABELA GUERIN Unavailable [phone] Encounters Encounter Location Date Provider Diagnosis [facility] [address] [place] [address] 11/12/2024 IZABELA GUERIN Plan Of Treatment Next Appt Details Provider Name:MULUGETA RAYGOZA, 10:00:00 AM, [address] , [place], [address], Progress Notes * Romeo ARANDADOB:1955 ( 69 yo M)Acc No.[id number]:11/12/2024 Progress Notes Patient: Romeo JONES Provider: Jonathon GUERIN MD :1955 A ge:69 Y S ex:Male Date:11/12/2024 Address:[address], [place] Subjective: * Chief Complaints: * * Medical History: Objective: * Vitals: Assessment: Plan: * Treatment: * Images: Billing Information: * Visit Code: * Procedure Codes: Care Plan Details* * Electronic signature of BENOIT GUERIN on 02/09/2025 at 10:14 AM EDT Sign off status: Pending * Provider: Jonathon GUERIN MD Date: 11/12/2024 Generated for Erika markham/Flor/eTnunoitting on: 02/09/2025 10:14 AM EDT
--- OUTSIDE RECORDS SUMMARY | 2025-02-04 23:59 | XMS_ITS | Continuity of Care Document ---
Author Organization [facility] Address [address] [place] [id number]- Care Team Providers Care Foreclosure Clerk Name Role Phone Christine PALMA, Beth Chappell Primary Care Physician Encounter [facility] Date(s): 12/03/24 - 02/04/25 [facility] [address] [place] [id number]- Attending Physician: Ezra Renee MD Admitting Physician: [...] Quantity: 90.0 Unit: tablet Repeat number: 1 dicyclomine 10 mg oral capsule 1 capsule = 10 mg, By Mouth, 2 times a day, 0 Refills, Maintenance, 09/26/24 11:35:00 AM EST, Partial fill upon patient request if the prescription is for a schedule II opioid drug. Start Date: 09/26/24 Status: Ordered Repeat number: 1 lisinopril 5 mg oral tablet 5 mg, 1, tablet, By Mouth, Daily at supper, # 90 tablet, Refills 0, Maintenance, 04/25/24 6:36:00 PMEDT, Partial fill upon patient request if the prescription is for a schedule II opioid drug. Start Date: 04/25/24 Status: Ordered Quantity: 90.0 Unit: tablet Repeat number: 1 LORazepam 0.5 mg oral tablet 0.5 tablet = 0.25 mg, By Mouth, Daily at bedtime, PRN as needed for anxiety, 0 Refills, Maintenance, 09/26/24 11:36:00 AM EST, Tablet, Partial fill upon patient request if the prescription is for a schedule II opioid drug. Start Date: 09/26/24 Status: Ordered Repeat number: 1 Nitrostat 0.4 mg sublingual tablet = 0.4 mg, Sublingual, Every 5 minutes, PRN Chest Pain, # 30 tablet, 0 Refills, Maintenance, 07/31/24 1:49:00 PM EST, Tablet, [id number], Partial fill upon patient request if the prescription is for a schedule II opioid drug., 183, cm, 07/21/24 13:27:00 EST, Height, 82.7, kg, 07/14/2421:54:00 EST, Dry Weight Start Date: 07/31/24 Status: Ordered Quantity: 30.0 Unit: tablet Repeat number: 1 Omeprazole = 20 mg, By Mouth, Daily, 0 Refills, Maintenance, 09/26/24 11:34:00 AM EST, Partial fill upon patient request if the prescription is for a schedule II opioid drug. Start Date: 09/26/24 Status: Ordered Repeat number: 1 Vitamin B12 Daily, 0 Refills, Maintenance, 04/25/18 4:37:31 PM EDT Start Date: 04/25/18 Status: Ordered Repeat number: 1 Xarelto 20 mg oral tablet 1 tablet = 20 mg, By Mouth, Daily at supper, # 30 tablet, 0 Refills, Maintenance, 01/16/25 8:58:00 AM EDT, Tablet, [facility] #[id number], Partial fill upon patient request if the prescription is for a schedule II opioid drug., 182, cm, 08/21/24 13:31:00 EST, Height, 84, kg, 08/03/24 10:59:00 EST, Dry Weight Start Date: 01/16/25 Status: Ordered Quantity: 30.0 Unit: tablet Repeat number: 1 Social History Social History Type Response Smoking Status Former smoker; Tobac co user in household: No; Other: pt states he quit smoking when he was 23; entered on: 03/02/16 Sex Sex Representation Male (finding) Patient Care team information Care Team Personnel Name: Beth King MD Position: [facility] Outreach Member Role: PCP Address: [address] [facility] [place] [address]- [place] Tele[employer]: Name: Rachana Potter Position: [facility] Outreach Member Role: Lifetime Consulting Physician Name: Dami Villaseñor MD Position: [facility] MD Member Role: Lifetime Consulting Physician Address: [address], 1st floor [facility] [address]- [place] Tele[employer]: Care Team Related Persons Name: GO COX Name: VERNON COX Insurance Providers Guarantor name: [employer] Health Plan Information #: 1 Payer: MEDICARE B Payer Identifier: Member Number: [id number] Group Number: Subscriber Identifier: [id number] Relationship to Subscriber: self Coverage Type: NA Coverage Verification Date: NA Telecom: NA Address: Health Plan Information #: 2 Payer: MEDEX SECONDARY ONLY Payer Identifier: Member Number: [id number] Group Number: Subscriber Identifier: [id number] Relationship to Subscriber: self Coverage Type: Medicare Other Coverage Verification Date: Telecom: Address:
[2025-02-09 09:46] VITALS: BP 120/70; PULSE 53; BMI 23.3
--- NOTE | 2025-02-09 09:46 | A.OFFVIS_ITS ---
Vital Signs 02/09/25 09:46 Height 6 ft Weight 171 lb 15.369 oz BMI 23.3 BP 120/70 Blood Pressure Location Lt brachial Position Sitting Pulse 53 Intake Visit Reasons: 6m follow up/echo Intake Note: 6 month follow-up with echo hearts doing good Allergies No Known Allergies Allergy (Verified 09/04/24 08:43) Medication List - Last Reconciled 02/09/25 by Giovanni Singleton MD aspirin 81 mg PO BEDTIME atorvastatin 40 mg PO BEDTIME cyanocobalamin (vitamin B-12) 1,000 mcg PO BEDTIME lisinopril 5 mg PO BEDTIME nitroglycerin 0.4 mg sublingual Q5M PRN rivaroxaban (Xarelto) 20 mg PO DAILY HPI Comments Details: Romeo comes for follow-up. He said he had lost a lot of weight with chemotherapy and is just now feeling a lot better after he has been off chemotherapy in his now eating better and putting back on in his weight. He has no exertional symptoms of chest pain or shortness of breath. No orthopnea, PND, leg edema. He has not had any episodes of atrial fibrillation. He is concerned about oral anticoagulation therapy and whether he should undergo go and continue to be on anticoagulation therapy. He has not had any lightheadedness, syncope. No bleeding issues or neurologic events. His recent echocardiogram shows normal LV ejection fraction with [id number] aortic regurgitation mildly dilated ascending aorta. [facility] Medical History Coronary artery disease Paroxysmal atrial fibrillation High cholesterol Hypertension Surgical History History of cardiac cath Hx of cholecystectomy Status post insertion of drug-eluting stent into left anterior descending (LAD) artery for coronary artery disease Family History Mother Afib Social History Alcohol intake: current Alcohol intake frequency: a few times a month Alcohol type: beer Cigarette Packs Per Day: 2 Cigarettes Per Day: 40.0 Years Smoked: 9 service: No Current occupational status: employed Review of Systems Const Denies chills, Denies fatigue, Denies fever(s), Denies frequent falls, Denies weakness, Denies weight gain and Denies weight loss ENT Denies dizziness Card Denies chest pain, Denies leg edema, Denies lightheadedness, Denies palpitations, Denies dyspnea, Denies dyspnea on exertion, Denies orthopnea and Denies other (loss of consciousness) Resp Denies cough, Denies dyspnea and Denies dyspnea on exertion GI Denies hematochezia and Denies change in stool character Musc Denies abnormal gait, Denies muscle weakness, Denies numbness, Denies radiating pain into limb and Denies tingling Neuro Denies Abnormal speech present, Denies abnormal gait, Denies dizziness, Denies frequent falls, Denies numbness, Denies tingling and Denies weakness Endo Denies fatigue and Denies palpitations Physical Exam Vital Signs: Last Vital Signs Pulse 53 02/09/25 09:46 BP 120/70 02/09/25 09:46 BMI result Body Mass Index 23.3 Const General: cooperative, comfortable, no acute distress, alert, awake, Physically active and well groomed Nutritional Appearance: average body habitus Orientation/consciousness: patient oriented x3 Limitations: no limitations HEENT Head: Yes normocephalic and Yes atraumatic Neck Neck: Yes trachea midline, Yes supple and Yes no JVD Carotids: no bruits Resp Effort & Inspection: normal respiratory effort Auscultation: clear to auscultation bilaterally Cardio Jugular venous distension: no JVD Palpation: normal PMI Rate: regular rate Rhythm: regular rhythm Heart sounds: S1 normal heart sound present, S2 normal heart sound present, no click, no gallops, no murmurs and no rubs GI Auscultation: normal bowel sounds Skin General skin exam: no rashes or lesions noted Neuro General: patient oriented x3 and no focal motor deficits Speech: No Abnormal speech present Extrem General: Yes no clubbing, cyanosis or edema Psych Appearance: grossly normal Assessment & Plan Assessment & Plan (1) Paroxysmal atrial fibrillation: Code(s): I48.0 - Paroxysmal atrial fibrillation Category: Medical Plan: Paroxysmal atrial fibrillation status post ablation without any clinical recurrence including on the monitoring on the implantable loop recorder. CHADSVASc score of 3 and we had a very long discussion about pathophysiology of atrial fibrillation as well as stroke associated with atrial fibrillation. Based on his risk for I would advised him to be continue on blood thinner therapy. I would advised him to continue with Xarelto. There was no indication for continued aspirin therapy and advised him to stop that. Avoidance of stimulants was discussed advised to call me with any new symptoms. No need for antiarrhythmic drug therapies. (2) Coronary artery disease: Comment: Bare metal stent to LAD in 2000 for acute myocardial infarction. Followed by drug-eluting stent to LAD in 2009 for what appears to be in stent restenoses Code(s): I25.10 - Atherosclerotic heart disease of [place] coronary artery without angina pectoris Category: Medical Plan: CAD status post prior stenting remotely in 2009 with moderate disease on recent cardiac catheterization last July which was nonobstructive. He has no current anginal sounding chest discomfort. Continued aggressive medical therapy. I would stop his aspirin therapy to reduce bleeding risk as coronary disease is stable. Continue Xarelto as prescribed. Continue high-intensity statin therapy with well optimized LDL at this point time. Blood pressure is also well optimized. Encouraged to maintain activity level as tolerated. Improving his aerobic as well as respiratory capacity prior to surgery was discussed as well. (3) Preoperative cardiovascular examination: Code(s): Z01.810 - Encounter for preprocedural cardiovascular examination Plan: Preoperative cardiovascular risk stratification in this elderly gentleman with prior coronary artery disease as well as atrial fibrillation. Clinically he is currently not having any symptoms and last cardiac catheterization less than a year ago showed nonobstructive disease. At this point time he is currently optimized to undergo surgery with low to intermediate risk for perioperative cardiovascular morbidity mortality. Continue statins as well as lisinopril therapy in the perioperative period. Xarelto can be withheld for 3 days prior to the surgery and resumed as soon as possible after the surgery with associated thromboembolic risk. Will follow up in the clinic in 6 months time, sooner p.r.n.. Thank you for allowing me to partake in his care Coding Level of Care Code Est Pt Level 4 (07174) Complex EM visit Add On G2211 Diagnoses Paroxysmal atrial fibrillation I48.0 Coronary artery disease I25.10 Preoperative cardiovascular examination Z01.810
== END 2025-02-09 10:24 | disposition home or self-care (01) ==
LOC: HO.HCS 09:45
PROVIDERS: Visit Provider Internal Medicine Cardiovascular Disease
DX: I48.0 Paroxysmal atrial fibrillation (principal); I25.10 Atherosclerotic heart disease of native coronary artery without angina pectoris; Z01.810 Encounter for preprocedural cardiovascular examination
CPT/HCPCS: 99214; G2211

== ENCOUNTER → 2025-02-09 09:44 | Outpatient (BNVA) | payer MEDICARE, SELFPAY | PROVIDERS: Visit Provider Internal Medicine Cardiovascular Disease | DX: Z01.810 Encounter for preprocedural cardiovascular examination (principal); I48.0 Paroxysmal atrial fibrillation; I25.10 Atherosclerotic heart disease of native coronary artery without angina pectoris | CPT/HCPCS: 99212 ==